=== PATIENT | male | born 1945 | race Caucasian/White ===

== ENCOUNTER 2016-09-09 18:31 | Emergency (ER) | payer MEDICARE, OTHER ==
--- NOTE | 2016-09-09 19:38 | ER Document Report ---
ED Hip Pain/Injury - General Mode of Arrival: Medic Information source: Patient TRAVEL OUTSIDE OF THE [place] IN LAST 30 DAYS: No <ELIE HARMAN - Last Filed: 09/10/16 06:49> <ARIN CRENSHAW - Last Filed: 09/10/16 15:19> - General Chief Complaint: Hip Pain Stated Complaint: LEFT HIP PAIN Notes: Patient is a 71-year-old male who presents to the ER via EMS today for left hip pain. Patient states that he was diagnosed a hip fracture one week ago after falling while intoxicated. Patient was seen by ortho here in the ER and told to follow-up with orthopedics and to go through physical therapy. He received physical therapy here in hospital but no more once he got home. He has been walking around with crutches at home. Patient states that he drinks alcohol daily after his left him August 05 of this year. He admits to anxiety and depression and lives alone. He states "I don't want to live anymore, I just want to ." He however denies any suicidal plan. He states "I don't have the guts for that." (ELIE HARMAN) - Related Data Allergies/Adverse Reactions: diphenhydramine HCl [From Benadryl] Allergy (Verified 09/09/16 18:54) Hyperactivity lisinopril [Lisinopril] Adverse Reaction (Severe, Verified 09/09/16 18:54) angioedema Home Medications: Current Home Medications Dabigatran Etexilate Mesylate [Pradaxa 150 mg Capsule] 150 mg PO BID 09/10/16 [ History] Digoxin [Lanoxin 0.25 mg Tablet] 0.25 mg PO QAM 09/10/16 [History] Diltiazem HCl [Diltiazem 24Hr Cd] 180 mg PO BID 09/10/16 [History] Valsartan/Hydrochlorothiazide [Valsartan-Hctz 80-12.5 mg Tab] 1 tab PO DAILY 02/19 [History] Past Medical History - General Information source: Patient - Social History Smoking Status: Unknown if Ever Smoked Family History: CAD, COPD - Past Medical History Cardiac Medical History: Reports: Hx Atrial Fibrillation Denies: Hx Congestive Heart Failure, Hx Coronary Artery Disease, Hx Heart Attack, Hx Hypercholesterolemia, Hx Hypertension, Hx Peripheral Vascular Disease , Hx Heart Murmur Pulmonary Medical History: Reports: Hx COPD Renal/ Medical History: Denies: Hx Benign Prostatic Hyperplasia, Hx End Stage Renal Disease, Hx Kidney Stones, Hx Peritoneal Dialysis Malignancy Medical History: Reports Hx Prostate Cancer GI Medical History: Reports: Hx Hiatal Hernia. Denies: Hx Crohn's Disease, Hx Gastroesophageal Reflux Disease, Hx Irritable Bowel, Hx Liver Failure, Hx Ulcer Psychiatric Medical History: Reports: Hx Anxiety, Hx Depression Infectious Medical History: Reports: Hx C-Diff Past Surgical History: Reports: Hx Abdominal Surgery, Hx Herniorrhaphy, Hx Orthopedic Surgery - elbow, Hx Urinary Tract Surgery. Denies: Hx Appendectomy, Hx Bowel Surgery, Hx Cholecystectomy, Hx Colostomy, Hx Coronary Artery Bypass Graft, Hx Gastric Bypass Surgery, Hx Pacemaker, Hx Tonsillectomy - Immunizations Hx Diphtheria, Pertussis, Tetanus Vaccination: No Hx Pneumococcal Vaccination: 09/05/10 <ELIE HARMAN - Last Filed: 09/10/16 06:49> Review of Systems - Review of Systems Constitutional: No symptoms reported EENT: No symptoms reported Cardiovascular: No symptoms reported Respiratory: No symptoms reported Gastrointestinal: No symptoms reported Genitourinary: No symptoms reported Male Genitourinary: No symptoms reported Musculoskeletal: See HPI Skin: No symptoms reported Hematologic/Lymphatic: No symptoms reported Neurological/Psychological: See HPI <ELIE HARMAN - Last Filed: 09/10/16 06:49> Physical Exam <ELIE HARMAN - Last Filed: 09/10/16 06:49> <ARIN CRENSHAW - Last Filed: 09/10/16 15:19> - Vital signs Vitals: Temp Pulse BP Pulse Ox 97.5 F 53 L 88/61 L 100 09/09/16 18:43 09/09/16 18:43 09/09/16 18:43 09/09/16 18:43 (ELIE HARMNA) (ARIN CRENSHAW) - Notes Notes: PHYSICAL EXAMINATION: GENERAL: intoxicated, smells of alcohol, in no acute distress. HEAD: Atraumatic, normocephalic. EYES: Pupils equal round and reactive to light, extraocular movements intact, sclera anicteric, conjunctiva are normal. NECK: Normal range of motion, supple without lymphadenopathy LUNGS: CTAB and equal. No wheezes rales or rhonchi. HEART: Regular rate and rhythm without murmurs ABDOMEN: Soft, no tenderness. No guarding, no rebound BACK: no vertebral tenderness, normal ROM GI/: no CVA tenderness EXTREMITIES: Decreased range of motion at the left hip secondary to pain, tender over lateral left hip, no pitting edema. No cyanosis. NEUROLOGICAL: Cranial nerves grossly intact. Normal sensory/motor exams. PSYCH: Depressed, crying, intoxicated SKIN: Warm, Dry, normal turgor, no rashes or lesions noted (ELIE HARMAN) Course - Laboratory Result Diagrams: 09/09/16 21:05 09/09/16 23:47 <ELIE HARMAN - Last Filed: 09/10/16 06:49> - Laboratory Result Diagrams: 09/09/16 21:05 09/09/16 23:47 <ARIN CRENSHAW - Last Filed: 09/10/16 15:19> - Re-evaluation Re-evalutation: 09/09/16 21:53 report from provider on 09-02/ initial hip fracture diagnosis: Dr. Mendoza was in the emergency department I asked him to step in and talk with the patient. He reports patient is able to be discharged home. Is not a surgical candidate. He would like physical therapy to assess patients ability to walk with a walker. PHYSICAL THERAPY CONSULTED FOR FOR assessment with walker. Patient was updated on plan of care and he agrees to all plan, verbalized understanding. 09/10/16 05:14 Pt medically cleared at this time, voluntary psych eval this morning. labwork revealed a sodium of 118, pt usually runs low at baseline as he is an alcoholic , usually his sodium is in the low 120's, after 1 liter of fluid it did improve back to his baseline and then he was given another liter of fluids, x ray was repeated and reveals the same avulsion fracture unchanged from previous x-ray. Alcohol was initially 225, now 90 and pt is stable with all normal vital signs. Patient has been and atrial fibrillation the entire time here which is normal for him. He is on medication for this. His pulses have ranged between 60 and 70 on average. 09/10/16 05:15 09/10/16 05:26 09/10/16 05:43 09/10/16 05:44 (ELIE HARMAN) 09/10/16 09:13 Initial evaluation patient's asleep. When awakened he denies having voiced any concerns during the night about 1 and hurt himself or kill himself. He also claims with hip pain but has no other complaints On exam patient is awake and alert but withdrawn and slow to answer questions. Skin is warm and dry Chest clear to auscultation bilaterally Heart slightly irregular no murmur Extremities warm with 2+ pulses Patient remains medically clear and awaiting mental health disposition 09/10/16 15:19 Patient has been evaluated by mental health provider with concerns that he may remain a threat to self. He is Clear and his usual outpatient regimen is being reordered (ARIN CRENSHAW) - Vital Signs Vital signs: Temp Pulse Resp BP Pulse Ox 98.2 F 60 16 125/82 95 09/10/16 07:01 09/09/16 23:05 09/10/16 11:01 09/10/16 11:01 09/10/16 11:01 (ELIE HARMAN) (ARIN CRENSHAW) - Laboratory Laboratory results interpreted by me: 09/09/16 09/09/16 09/09/16 21:05 21:05 21:05 RBC 3.82 L Hgb 12.7 L Hct 36.7 L Sodium 118.5 L* Chloride 85 L Glucose 66 L Calcium 8.0 L Total Protein 5.3 L Albumin 3.0 L Urine Blood SMALL H Ur Leukocyte Esterase SMALL H Digoxin Salicylates < 1.0 L Acetaminophen < 10 L 09/09/16 09/09/16 21:05 23:47 RBC Hgb Hct Sodium 121.0 L Chloride 89 L Glucose 70 L Calcium 7.4 L Total Protein 4.6 L Albumin 2.4 L Urine Blood Ur Leukocyte Esterase Digoxin 0.57 L Salicylates Acetaminophen (ARIN CRENSHAW) Discharge <ELIE HARMAN - Last Filed: 09/10/16 06:49> <ARIN CRENSHAW - Last Filed: 09/10/16 15:19> - Discharge Clinical Impression: Alcohol abuse, Intoxication Fracture of greater trochanter Qualifiers: Encounter type: subsequent encounter Fracture type: closed Fracture alignment: displaced Laterality: left Fracture healing: with routine healing Qualified Code (s): S72.112D - Displaced fracture of greater trochanter of left femur, subsequent encounter for closed fracture with routine healing Depressed Qualifiers: Depression Type: unspecified Qualified Code(s): F32.9 - Major depressive disorder, single episode, unspecified Condition: Stable Disposition: PSYCH HOSP/UNIT
[2016-09-09] MEDS ORDERED: OXYCODONE-ACETAMINOPHEN 5-325 MG TABLET PO ONE (20:49)
[2016-09-09] MEDS ORDERED: KETOROLAC TROMETHAMINE INJ/PF 30 MG/1 ML SDV IV ONE (20:50)
[2016-09-09 21:32] LABS: ABSOLUTE EOSINOPHILS # (AUTO) 0.1 10^3/uL (0.0-0.6); ABSOLUTE MONOCYTES (AUTO) 0.7 10^3/uL (0.1-1.4); ABSOLUTE NEUT (AUTO) 5.7 10^3/uL (1.7-8.2); BASOPHILS % (AUTO) 0.2 % (0-2); EOSINOPHILS % (AUTO) 1.2 % (0-6); HEMATOCRIT 36.7 % (37.9-51.0); HEMOGLOBIN 12.7 g/dL (13.5-17.0); HGB HCT DIFFERENCE 1.4; LYMPHOCYTES % (AUTO) 13.4 % (13-45); MEAN CORPUSCULAR HEMOGLOBIN 33.3 pg (27.0-33.4); MEAN CORPUSCULAR HGB CONC 34.7 g/dL (32.0-36.0); MEAN CORPUSCULAR VOLUME 96 fl (80-97); MONOCYTES % (AUTO) 9.7 % (3-13); RED BLOOD COUNT 3.82 10^6/uL (4.35-5.55); RED CELL DISTRIBUTION WIDTH 13.5 % (11.5-14.0); SEGMENTED NEUTROPHILS % (AUTO) 75.5 % (42-78); WHITE BLOOD COUNT 7.5 10^3/uL (4.0-10.5)
[2016-09-09 21:40] LABS: APPEARANCE,URINE CLEAR; BILIRUBIN,URINE NEGATIVE (NEGATIVE); GLUCOSE, URINE NEGATIVE (NEGATIVE); KETONES,URINE NEGATIVE (NEGATIVE); LEUKOCYTE ESTERASE,URINE SMALL (NEGATIVE); NITRITE,URINE NEGATIVE (NEGATIVE); PROTEIN,URINE NEGATIVE (NEGATIVE); URINE SPECIFIC GRAVITY 1.004; UROBILINOGEN,URINE NEGATIVE mg/dL (<2.0)
[2016-09-09 21:50] LABS: ALANINE AMINOTRANSFERASE 39 U/L (21-72); ALCOHOL 225 mg/dL (NONE DETECTED); ALKALINE PHOSPHATASE 91 U/L (38-126); ASPARTATE AMINO TRANSFERASE 30 U/L (17-59); BILIRUBIN,TOTAL 0.4 mg/dL (0.2-1.3); BLOOD UREA NITROGEN 9 mg/dL (7-20); CARBON DIOXIDE 25 mmol/L (22-30); CHLORIDE 85 mmol/L (98-107); CREATININE RESULT 0.77 mg/dL (0.52-1.25); GLUCOSE 66 mg/dL (75-110); POTASSIUM 4.2 mmol/L (3.6-5.0); TOTAL PROTEIN 5.3 g/dL (6.3-8.2)
[2016-09-09 21:51] LABS: ANION GAP 9 (5-19)
[2016-09-09 21:52] LABS: URINE BARBITURATES SCREEN UNCONFIRMED POSITIVE; URINE METHADONE SCREEN NEGATIVE; URINE PHENCYCLIDINE SCREEN NEGATIVE
[2016-09-09 21:55] LABS: SODIUM 118.5 mmol/L (137-145)
[2016-09-09] MEDS ORDERED: NORMAL SALINE 1000 ML 1,000 ML IV ONE (21:56)
[2016-09-10 00:11] LABS: ALANINE AMINOTRANSFERASE 41 U/L (21-72); ALBUMIN 2.4 g/dL (3.5-5.0); ALKALINE PHOSPHATASE 76 U/L (38-126); ANION GAP 8 (5-19); ASPARTATE AMINO TRANSFERASE 26 U/L (17-59); BILIRUBIN,TOTAL 0.4 mg/dL (0.2-1.3); BLOOD UREA NITROGEN 8 mg/dL (7-20); CALCIUM 7.4 mg/dL (8.4-10.2); CARBON DIOXIDE 24 mmol/L (22-30); CHLORIDE 89 mmol/L (98-107); CREATININE RESULT 0.73 mg/dL (0.52-1.25); GLUCOSE 70 mg/dL (75-110); POTASSIUM 3.6 mmol/L (3.6-5.0); TOTAL PROTEIN 4.6 g/dL (6.3-8.2)
[2016-09-10] MEDS ORDERED: NORMAL SALINE 1000 ML 1,000 ML IV ONE (00:28)
[2016-09-10] MEDS ORDERED: DIAZEPAM 5 MG TABLET PO ONE (01:09)
--- NOTE | 2016-09-10 05:12 | EKG REPORT ---
SEVERITY:- ABNORMAL ECG - ATRIAL FIBRILLATION : Confirmed by: Manuela Pollock 10-Sep-2016 05:10:56
[2016-09-10] MEDS ORDERED: OXYCODONE-ACETAMINOPHEN 5-325 MG TABLET PO ONE ×2 (05:14→09:34)
[2016-09-10] MEDS ORDERED: ONDANSETRON HCL INJ/PF 4 MG/2 ML SDV IV ONE ×2 (15:14→20:20)
[2016-09-10] MEDS ORDERED: HYDROCHLOROTHIAZIDE 12.5 MG CAPSULE PO SCH (15:30)
[2016-09-10] MEDS ORDERED: ONDANSETRON 4 MG TAB.RAPDIS ONE (15:35)
[2016-09-10] MEDS: DILTIAZEM HCL 180 MG CAPSULE.CR PO SCH (15:39)
[2016-09-10] MEDS: DIGOXIN 0.25 MG TABLET PO SCH (15:40)
[2016-09-10] MEDS ORDERED: VALSARTAN 80 MG TABLET PO SCH (16:00)
[2016-09-10] MEDS ORDERED: LORAZEPAM 0.5 MG TABLET PO ONE (19:01)
--- NOTE | 2016-09-10 19:34 | ER Document Report ---
Doctor's Note Notes: 09/10/16 19:33 Patient's son is here in the patient and son both ports they're planning take a trip together and the patient is optimistic tonight's may help him feel better. He requested something for sleep tonight and I ordered 1 dose of Ativan by mouth. I would like to watch him overnight if he still feels well tomorrow hopefully discharge at that point. Of returned about 9:00 in the morning at which point we'll like to have mental health reevaluates patient is well and wetting may have an acceptable and safe outpatient disposition
[2016-09-10] MEDS ORDERED: MORPHINE SULFATE 10 MG/ML INJ IV ONE (20:20)
[2016-09-10] MEDS: DABIGATRAN ETEXILATE 150 MG CAPSULE PO SCH (20:30)
[2016-09-11] MEDS ORDERED: MORPHINE SULFATE 10 MG/ML INJ ONE (05:15)
[2016-09-11 09:21] VITALS: BP 122/80
[2016-09-11] MEDS: DIGOXIN 0.25 MG TABLET PO SCH (09:36)
[2016-09-11] MEDS: DABIGATRAN ETEXILATE 150 MG CAPSULE PO SCH (09:36)
[2016-09-11] MEDS: DILTIAZEM HCL 180 MG CAPSULE.CR PO SCH (09:37)
[2016-09-11] MEDS ORDERED: ACETAMINOPHEN WITH CODEINE #3 TABLET PO ONE (11:54)
--- NOTE | 2016-09-11 12:01 | ER Document Report ---
ED General - General Chief Complaint: Hip Pain Stated Complaint: LEFT HIP PAIN Mode of Arrival: Medic Notes: Patient is awake and alert. To this examiner he has no specific complaints at this time. Hip pain is under control. He does not like how Percocet makes him feel and wants to try Tylenol 3 for his hip pain. He has an orthopedic surgeon and the hip is nonoperative. He has history of physical therapy this week. PE: Cooperative, chest clear to auscultation bilaterally, breath sounds are equal moves extremities well. Speech is clear. He answers questions appropriately. No SI/HI or psychosis. Cleared by mental health. Son in emergency room to take patient home. TRAVEL OUTSIDE OF THE [place] IN LAST 30 DAYS: No - Related Data Allergies/Adverse Reactions: diphenhydramine HCl [From Benadryl] Allergy (Verified 09/09/16 18:54) Hyperactivity lisinopril [Lisinopril] Adverse Reaction (Severe, Verified 09/09/16 18:54) angioedema Home Medications: Current Home Medications Dabigatran Etexilate Mesylate [Pradaxa 150 mg Capsule] 150 mg PO BID 09/10/16 [ History] Digoxin [Lanoxin 0.25 mg Tablet] 0.25 mg PO QAM 09/10/16 [History] Diltiazem HCl [Diltiazem 24Hr Cd] 180 mg PO BID 09/10/16 [History] Valsartan/Hydrochlorothiazide [Valsartan-Hctz 80-12.5 mg Tab] 1 tab PO DAILY 02/19 [History] Past Medical History - General Information source: Patient - Social History Smoking Status: Unknown if Ever Smoked Family History: CAD, COPD - Past Medical History Cardiac Medical History: Reports: Hx Atrial Fibrillation Denies: Hx Congestive Heart Failure, Hx Coronary Artery Disease, Hx Heart Attack, Hx Hypercholesterolemia, Hx Hypertension, Hx Peripheral Vascular Disease , Hx Heart Murmur Pulmonary Medical History: Reports: Hx COPD Renal/ Medical History: Denies: Hx Benign Prostatic Hyperplasia, Hx End Stage Renal Disease, Hx Kidney Stones, Hx Peritoneal Dialysis Malignancy Medical History: Reports Hx Prostate Cancer GI Medical History: Reports: Hx Hiatal Hernia. Denies: Hx Crohn's Disease, Hx Gastroesophageal Reflux Disease, Hx Irritable Bowel, Hx Liver Failure, Hx Ulcer Psychiatric Medical History: Reports: Hx Anxiety, Hx Depression Infectious Medical History: Reports: Hx C-Diff Past Surgical History: Reports: Hx Abdominal Surgery, Hx Herniorrhaphy, Hx Orthopedic Surgery - elbow, Hx Urinary Tract Surgery. Denies: Hx Appendectomy, Hx Bowel Surgery, Hx Cholecystectomy, Hx Colostomy, Hx Coronary Artery Bypass Graft, Hx Gastric Bypass Surgery, Hx Pacemaker, Hx Tonsillectomy - Immunizations Hx Diphtheria, Pertussis, Tetanus Vaccination: No Hx Pneumococcal Vaccination: 09/05/10 Physical Exam - Vital signs Vitals: Temp Pulse BP Pulse Ox 97.5 F 53 L 88/61 L 100 09/09/16 18:43 09/09/16 18:43 09/09/16 18:43 09/09/16 18:43 Course - Vital Signs Vital signs: Temp Pulse Resp BP Pulse Ox 98 F 91 16 122/80 98 09/11/16 09:00 09/11/16 09:00 09/11/16 09:00 09/11/16 09:00 09/11/16 09:00 - Laboratory Result Diagrams: 09/09/16 21:05 09/09/16 23:47 Laboratory results interpreted by me: 09/09/16 09/09/16 09/09/16 21:05 21:05 21:05 RBC 3.82 L Hgb 12.7 L Hct 36.7 L Sodium 118.5 L* Chloride 85 L Glucose 66 L Calcium 8.0 L Total Protein 5.3 L Albumin 3.0 L Urine Blood SMALL H Ur Leukocyte Esterase SMALL H Digoxin Salicylates < 1.0 L Acetaminophen < 10 L 09/09/16 09/09/16 21:05 23:47 RBC Hgb Hct Sodium 121.0 L Chloride 89 L Glucose 70 L Calcium 7.4 L Total Protein 4.6 L Albumin 2.4 L Urine Blood Ur Leukocyte Esterase Digoxin 0.57 L Salicylates Acetaminophen Discharge - Discharge Clinical Impression: Alcohol abuse, Intoxication Fracture of greater trochanter Qualifiers: Encounter type: subsequent encounter Fracture type: closed Fracture alignment: nondisplaced Laterality: unspecified laterality Fracture healing: with routine healing Qualified Code(s): S72.116D - Nondisplaced fracture of greater trochanter of unspecified femur, subsequent encounter for closed fracture with routine healing Depressed Qualifiers: Depression Type: unspecified Qualified Code(s): F32.9 - Major depressive disorder, single episode, unspecified Condition: Stable Disposition: PSYCH HOSP/UNIT Additional Instructions: When taking the Tylenol #3, do not take any other pain medication other than Motrin. You must follow up for physical therapy and further evaluation by the orthopedic surgeon. DEPRESSION: Your evaluation reveals that you have mental depression. While symptoms may be vague, they often include disturbance of sleep, fatigue, loss of appetite , and general loss of interest in life. While depression may be a side effect of drugs, or a reaction to a major change in your life, many cases have no known cause. If depression is acute, and related to a major loss in your life, you can expect it to clear completely with time. If you have been depressed a long time , are prone to repeated bouts of depression or low mood, or have been thinking of suicide, get help. Depression can be treated with anti-depressant medication and counselling. Long-term depression will often take a few weeks to clear, even with appropriate medication. Follow-up care is important. SUICIDAL IDEATION: Suicidal ideation is a common medical term for thoughts about suicide, which may be as detailed as a formulated plan, without the suicidal act itself. Although most people who undergo suicidal ideation do not commit suicide, some go on to make suicide attempts. The range of suicidal ideation varies greatly from fleeting to detailed planning, role playing, and unsuccessful attempts. While thoughts about suicide are common, most people do not carry out serious actions to commit suicide. Based upon your evaluation and discussion with you, we do not believe you are currently at risk to act upon your thoughts of suicide. You have agreed to return to the Emergency Department, at any time , if you feel inclined to act upon your suicidal thoughts. FOLLOW-UP CARE: If you have been referred to a physician for follow-up care, call the physician s office for an appointment as you were instructed or within the next two days. If you experience worsening or a significant change in your symptoms, notify the physician immediately or return to the Emergency Department at any time for re-evaluation.
--- NOTE | 2016-09-11 12:22 | PSYCHOLOGICAL NOTE ---
Psych Note - Psych Note Psych Note: Patient presented to the ER via EMS today for left hip pain. Patient states that he was diagnosed a hip fracture one week ago after falling while intoxicated. Patient was seen by ortho here in the ER and told to follow-up with orthopedics and to go through physical therapy. He received physical therapy here in hospital but no more once he got home. He has been walking around with crutches at home. Patient states that he drinks alcohol daily after his left him August 05 of this year. He admits to anxiety and depression and lives alone. He states "I don't want to live anymore, I just want to ." He however denies any suicidal plan. He states "I don't have the guts for that." Patient requests Ativan for his anxiety. Patient is very guarded stating "everything is fine." When asked about any history of mental health issues patient stated "just forget it, it's too hard, I just wanted a piece of Ativan. " Patient really fuses to answer any questions only stating that he has anxiety and just needed something to help him with it. Patient is alert and orientated to person, place, time, and circumstance. Mood is irritable with blunted affect. Patient denies suicidal and homicidal ideation. Patient denies auditory visual hallucinations; no delusions are noted. Thought process is organized however it is noted that the patient requests information repeated to him. It is unknown if this is for assistance in remembering or some other secondary gain. Conversational speech is halting, guarded. Patient made no eye contact. Intellectual abilities appear to be within normal range. Attention, and concentration are poor. Insight, judgment , and impulse control are poor. 311 (F32.9) Unspecified Depressive Disorder Patient's presenting symptoms are similar to that of a depressive disorder and cause clinically significant distress in all domains of his life At this time, in this setting (ED) there is not enough information to make a more specific diagnosis (eg due to a medical illness vs major depressive disorder) 291.9 (F10.99) Unspecified Alcohol-Related Disorder Patient reports daily ETOH and states it is causes clinically significant probs in all domains of his life At this time, in this setting (ED) there is not enough information to make a more specific diagnosis. Patient is recommended for IVC and seek 24 hour inpatient psychiatric care. Patient is considered a danger to himself. Currently the patient denies suicidal ideation however he is at high risk because of his diagnoses, situation , age, and new injury. Patient is to guarded and evasive to effectively evaluate reevaluation will be needed.
--- NOTE | 2016-09-11 12:32 | PSYCHOLOGICAL NOTE ---
Psych Note - Psych Note Psych Note: Reevaluation: Patient presented to the ER via EMS today for left hip pain. Patient states that he was diagnosed a hip fracture one week ago after falling while intoxicated. Patient was seen by ortho here in the ER and told to follow-up with orthopedics and to go through physical therapy. He received physical therapy here in hospital but no more once he got home. He has been walking around with crutches at home. Patient states that he drinks alcohol daily after his left him August 05 of this year. He admits to anxiety and depression and lives alone. He states "I don't want to live anymore, I just want to ." He however denies any suicidal plan. He states "I don't have the guts for that." Patient states that he is thankful we kept him overnight. Stating that he thinks it's actually done good for his hip cousin starting to feel better. Patient disclosed his left him and that he was in a "bad way." He states that she will be coming back in a few months and currently he has plans to go on a vacation with his son. When asked if he would have coping skills if the plan changed the patient disclosed that he is currently taking things 1 day at a time so it does not overwhelm him. He continued to disclose that AA services are very close to his home and while in the past he has sporadically gone he states he really needs to focus on doing that. Clinician spoke to patient's son, Matt [phone], he disclosed that his mom has left however he believes she will be coming back. In the meantime he is willing to be his father's safety resource. They currently have plans to go on a vacation and his father is really looking forward to it. Patient is alert and orientated to person, place, time, and circumstance. Mood is euthymic and affect with congruent affect. Patient denies suicidal and homicidal ideation. Patient denies auditory visual hallucinations; no delusions are noted. Thought process is logical, organized, and linear. Conversational speech is within normal rate, tone, and prosody. Eye contact was well maintained. Intellectual abilities appear to be within normal range. Attention, and concentration are poor. Insight, judgment, and impulse control are poor. 311 (F32.9) Unspecified Depressive Disorder Patient's presenting symptoms are similar to that of a depressive disorder and cause clinically significant distress in all domains of his life At this time, in this setting (ED) there is not enough information to make a more specific diagnosis (eg due to a medical illness vs major depressive disorder) 291.9 (F10.99) Unspecified Alcohol-Related Disorder Patient reports daily ETOH and states it is causes clinically significant probs in all domains of his life At this time, in this setting (ED) there is not enough information to make a more specific diagnosis. Patient is recommended for rescind of IVC and is considered psychiatrically cleared for discharge. Patient is able to discuss current situation and formulate plans. Patient's son Matt is safety resource. While the patient states he does not want outpatient services he will look into to attending AA classes. Patient is psychiatrically cleared for discharge Dr. Martinez was consulted on this patient; attending physician is in agreement with recommendations and disposition.
== END 2016-09-11 12:24 ==
LOC: ER 18:31
DX: S72.11 Fracture of greater trochanter of femur (principal); F10.120 Alcohol abuse with intoxication, uncomplicated; F32.9 Major depressive disorder, single episode, unspecified; X58.XXXD Exposure to other specified factors, subsequent encounter
CPT/HCPCS: 93005; 96376; 99285; 96361; 96374; 96375; 36415; 80307 ×4; 80162; 85025; 80053; 81001; 71010; 73502; 93010; A9270 ×11; J1885; J2270 ×2; J2405; J7030 ×2; J3490; S0119

== ENCOUNTER 2016-09-16 17:03 | Emergency (ER) | payer MEDICARE, OTHER ==
--- NOTE | 2016-09-16 17:46 | ER Document Report ---
ED Medical Screen (RME) - General Stated Complaint: FALL/HIP PAIN Notes: patient is a 71 year old male who lives by himself patient has been in/out of the ED for EtOH and recent left greater trochanter fracture son today states that today he was called by his dad after he fell, he had consumed about 12 beers. States he hit his head (on pradaxa) and has pain in his left hip. pt cannot articulate what happened that led to his fall. EMS reports that he admitted to SI but denies it currently. does not admit to current attempt or plan. son is concerned for his safety at home. TRAVEL OUTSIDE OF THE [place] IN LAST 30 DAYS: No - Related Data Allergies/Adverse Reactions: diphenhydramine HCl [From Benadryl] Allergy (Verified 09/16/16 17:37) Hyperactivity lisinopril [Lisinopril] Adverse Reaction (Severe, Verified 09/16/16 17:37) angioedema Past Medical History - Social History Family history: Reviewed & Not Pertinent - Past Medical History Cardiac Medical History: Reports: Hx Atrial Fibrillation Denies: Hx Congestive Heart Failure, Hx Coronary Artery Disease, Hx Heart Attack, Hx Hypercholesterolemia, Hx Hypertension, Hx Peripheral Vascular Disease , Hx Heart Murmur Pulmonary Medical History: Reports: Hx COPD Renal/ Medical History: Denies: Hx Benign Prostatic Hyperplasia, Hx End Stage Renal Disease, Hx Kidney Stones, Hx Peritoneal Dialysis Malignancy Medical History: Reports Hx Prostate Cancer GI Medical History: Reports: Hx Hiatal Hernia. Denies: Hx Crohn's Disease, Hx Gastroesophageal Reflux Disease, Hx Irritable Bowel, Hx Liver Failure, Hx Ulcer Psychiatric Medical History: Reports: Hx Anxiety, Hx Depression Infectious Medical History: Reports: Hx C-Diff Past Surgical History: Reports: Hx Abdominal Surgery, Hx Herniorrhaphy, Hx Orthopedic Surgery - elbow, Hx Urinary Tract Surgery. Denies: Hx Appendectomy, Hx Bowel Surgery, Hx Cholecystectomy, Hx Colostomy, Hx Coronary Artery Bypass Graft, Hx Gastric Bypass Surgery, Hx Pacemaker, Hx Tonsillectomy - Immunizations Hx Diphtheria, Pertussis, Tetanus Vaccination: No
--- NOTE | 2016-09-16 18:09 | ER Document Report ---
ED Psych Disorder / Suicide - General TRAVEL OUTSIDE OF THE [place] IN LAST 30 DAYS: No <PREETI ALVES - Last Filed: 09/16/16 19:14> <ADELAIDATEAANKUR - Last Filed: 09/17/16 10:55> - General Chief Complaint: Suicidal Ideation Stated Complaint: FALL/HIP PAIN Notes: The patient is a 71-year-old male, past medical history panic alcoholism, left greater trochanteric fracture in the past, presents with left hip pain after he was drinking 12 beers and fell on the left hip. His son said that he was expressing suicidal thoughts, but patient denies any suicidal thoughts at this time. "I don't have the balls to kill myself." He is on Pradaxa and hit his head and left hip earlier today. He wants to go to detox and said his son is helping him. The son is in the room and said that he would like to be referred for outpatient detox. He denies headache, nausea, vomiting, neck pain, focal weakness, numbness, ataxia, difficulty walking, chest pain, shortness of breath or LOC. (PREETI ALVES) - Related Data Allergies/Adverse Reactions: diphenhydramine HCl [From Benadryl] Allergy (Verified 09/16/16 17:37) Hyperactivity lisinopril [Lisinopril] Adverse Reaction (Severe, Verified 09/16/16 17:37) angioedema Past Medical History - General Information source: Patient, Relative - Social History Smoking Status: Current Every Day Smoker Chew tobacco use (# tins/day): No Frequency of alcohol use: None Drug Abuse: None Family History: CAD, COPD Patient has suicidal ideation: No Patient has homicidal ideation: No - Past Medical History Cardiac Medical History: Reports: Hx Atrial Fibrillation Denies: Hx Congestive Heart Failure, Hx Coronary Artery Disease, Hx Heart Attack, Hx Hypercholesterolemia, Hx Hypertension, Hx Peripheral Vascular Disease , Hx Heart Murmur Pulmonary Medical History: Reports: Hx COPD Renal/ Medical History: Denies: Hx Benign Prostatic Hyperplasia, Hx End Stage Renal Disease, Hx Kidney Stones, Hx Peritoneal Dialysis Malignancy Medical History: Reports Hx Prostate Cancer GI Medical History: Reports: Hx Hiatal Hernia. Denies: Hx Crohn's Disease, Hx Gastroesophageal Reflux Disease, Hx Irritable Bowel, Hx Liver Failure, Hx Ulcer Psychiatric Medical History: Reports: Hx Anxiety, Hx Depression Infectious Medical History: Reports: Hx C-Diff Past Surgical History: Reports: Hx Abdominal Surgery, Hx Herniorrhaphy, Hx Orthopedic Surgery - elbow, Hx Urinary Tract Surgery. Denies: Hx Appendectomy, Hx Bowel Surgery, Hx Cholecystectomy, Hx Colostomy, Hx Coronary Artery Bypass Graft, Hx Gastric Bypass Surgery, Hx Pacemaker, Hx Tonsillectomy - Immunizations Hx Diphtheria, Pertussis, Tetanus Vaccination: No Hx Pneumococcal Vaccination: 09/05/10 <PREETI ALVES - Last Filed: 09/16/16 19:14> Review of Systems <PREETI ALVES - Last Filed: 09/16/16 19:14> <ANKUR MCLAUGHLIN - Last Filed: 09/17/16 10:55> - Review of Systems Notes: REVIEW OF SYSTEMS: CONSTITUTIONAL: -fevers, -chills EENT: -eye pain, -difficulty swallowing, -nasal congestion CARDIOVASCULAR: -chest pain, -syncope. RESPIRATORY: -cough, -SOB GASTROINTESTINAL: -abdominal pain, - nausea, -vomiting, -diarrhea GENITOURINARY: -dysuria, -hematuria MUSCULOSKELETAL: -back pain, -neck pain SKIN: -rash or skin lesions. HEMATOLOGIC: -easy bruising or bleeding. LYMPHATIC: -swollen, enlarged glands. NEUROLOGICAL: -altered mental status or loss of consciousness, -headache, - neurologic symptoms PSYCHIATRIC: -anxiety, +depression, +chronic alcohol use ALL OTHER SYSTEMS REVIEWED AND NEGATIVE. (PREETI ALVES) Physical Exam <PREETI ALVES - Last Filed: 09/16/16 19:14> <ANKUR MCLAUGHLIN - Last Filed: 09/17/16 10:55> - Vital signs Vitals: Temp Pulse Resp BP Pulse Ox 98.2 F 67 20 93/57 L 97 09/16/16 17:37 09/16/16 17:37 09/16/16 17:37 09/16/16 17:37 09/16/16 17:37 (PREETI ALVES) (ANKUR MCLAUGHLIN) - Notes Notes: PHYSICAL EXAMINATION: GENERAL: Clinically intoxicated. No acute distress. HEAD: Contusion over right forehead, normocephalic. EYES: Pupils equal round and reactive to light, extraocular movements intact, sclera anicteric, conjunctiva are normal. ENT: nares patent, oropharynx clear without exudates. Moist mucous membranes. NECK: Normal range of motion, supple without lymphadenopathy LUNGS: Breath sounds clear to auscultation bilaterally and equal. No wheezes rales or rhonchi. HEART: Regular rate and rhythm without murmurs ABDOMEN: Soft, nontender, normoactive bowel sounds. No guarding, no rebound. No masses appreciated. EXTREMITIES: Tenderness over left lateral hip. Normal range of motion, no pitting or edema. No cyanosis. NEUROLOGICAL: Cranial nerves grossly intact. Normal speech, normal gait. Normal sensory, motor, and reflex exams. PSYCH: Normal mood, normal affect. SKIN: Warm, Dry, normal turgor, no rashes or lesions noted. (PREETI ALVES) Course - Laboratory Result Diagrams: 09/16/16 18:35 09/16/16 18:35 - Diagnostic Test Radiology reviewed: Image reviewed, Reports reviewed - EKG Interpretation by Fl EKG shows normal: [place], Intervals, QRS Complexes, ST-T Waves Rate: Bradycardia Rhythm: A.Fib <PREETI ALVES - Last Filed: 09/16/16 19:14> - Laboratory Result Diagrams: 09/16/16 18:35 09/16/16 18:35 <ANKUR MCLAUGHLIN - Last Filed: 09/17/16 10:55> - Re-evaluation Re-evalutation: Patient denying any suicidal ideation at this time, but son said that he was expressing thoughts of hurting himself over the past few days. CT head and hip x-ray negative for any acute findings. Will involve psych care management for help with detox and further evaluation of his suicidality. (PREETI ALVES) - Vital Signs Vital signs: Temp Pulse Resp BP Pulse Ox 98.1 F 92 18 144/92 H 97 09/17/16 08:11 09/17/16 08:11 09/17/16 08:11 09/17/16 08:11 09/17/16 08:11 (PREETI ALVES) (ANKUR MCLAUGHLIN) - Laboratory Laboratory results interpreted by ne: 09/16/16 09/16/16 09/16/16 18:35 18:35 21:45 RBC 3.66 L Hgb 11.8 L Hct 36.1 L MCV 99 H RDW 14.3 H Sodium 129.4 L Chloride 91 L Total Protein 5.4 L Albumin 3.2 L Ur Leukocyte Esterase TRACE H Salicylates < 1.0 L Acetaminophen < 10 L (ANKUR MCLAUGHLIN) - Diagnostic Test Radiology results interpreted by me: CT Head: NAD. Hip x-ray: (PREETI ALVES) Discharge <PREETI ALVES - Last Filed: 09/16/16 19:14> <ANKUR MCLAUGHLIN - Last Filed: 09/17/16 10:55> - Discharge Clinical Impression: Alcohol abuse, Suicidal ideation, mood disorder NOS, alcohol dependence Condition: Good Disposition: HOME, SELF-CARE Additional Instructions: Recommendations: Follow-up at [facility] (resource list given). Continue current medicines. Follow-up with your primary care doctor is well: Call for an appointment in the next 3-5 days. Return to the emergency room for any thoughts of wanting to hurt yourself or others or any thoughts of losing control.
[2016-09-16] MEDS ORDERED: NORMAL SALINE 1000 ML 1,000 ML IV ONE (18:10)
[2016-09-16 18:53] LABS: ABSOLUTE EOSINOPHILS # (AUTO) 0.1 10^3/uL (0.0-0.6); ABSOLUTE LYMPHOCYTES (AUTO) 1.1 10^3/uL (0.5-4.7); ABSOLUTE MONOCYTES (AUTO) 0.7 10^3/uL (0.1-1.4); ABSOLUTE NEUT (AUTO) 4.7 10^3/uL (1.7-8.2); BASOPHILS % (AUTO) 0.6 % (0-2); EOSINOPHILS % (AUTO) 1.4 % (0-6); HEMATOCRIT 36.1 % (37.9-51.0); HEMOGLOBIN 11.8 g/dL (13.5-17.0); HGB HCT DIFFERENCE -0.7; LYMPHOCYTES % (AUTO) 15.9 % (13-45); MEAN CORPUSCULAR HEMOGLOBIN 32.2 pg (27.0-33.4); MEAN CORPUSCULAR HGB CONC 32.7 g/dL (32.0-36.0); MEAN CORPUSCULAR VOLUME 99 fl (80-97); MONOCYTES % (AUTO) 10.6 % (3-13); RED BLOOD COUNT 3.66 10^6/uL (4.35-5.55); RED CELL DISTRIBUTION WIDTH 14.3 % (11.5-14.0); SEGMENTED NEUTROPHILS % (AUTO) 71.5 % (42-78); WHITE BLOOD COUNT 6.6 10^3/uL (4.0-10.5)
[2016-09-16 19:28] LABS: ALANINE AMINOTRANSFERASE 21 U/L (21-72); ALBUMIN 3.2 g/dL (3.5-5.0); ALCOHOL 252 mg/dL (NONE DETECTED); ALKALINE PHOSPHATASE 76 U/L (38-126); ANION GAP 9 (5-19); ASPARTATE AMINO TRANSFERASE 33 U/L (17-59); BILIRUBIN,TOTAL 0.3 mg/dL (0.2-1.3); BLOOD UREA NITROGEN 10 mg/dL (7-20); CALCIUM 8.5 mg/dL (8.4-10.2); CARBON DIOXIDE 29 mmol/L (22-30); CHLORIDE 91 mmol/L (98-107); CREATININE RESULT 0.73 mg/dL (0.52-1.25); GLUCOSE 82 mg/dL (75-110); POTASSIUM 4.3 mmol/L (3.6-5.0); SODIUM 129.4 mmol/L (137-145); TOTAL PROTEIN 5.4 g/dL (6.3-8.2)
[2016-09-16] MEDS ORDERED: ACETAMINOPHEN 325 MG TABLET PO ONE (21:25)
[2016-09-16 22:36] LABS: APPEARANCE,URINE CLEAR; BILIRUBIN,URINE NEGATIVE (NEGATIVE); GLUCOSE, URINE NEGATIVE (NEGATIVE); KETONES,URINE NEGATIVE (NEGATIVE); LEUKOCYTE ESTERASE,URINE TRACE (NEGATIVE); NITRITE,URINE NEGATIVE (NEGATIVE); PROTEIN,URINE NEGATIVE (NEGATIVE); URINE SPECIFIC GRAVITY 1.003; UROBILINOGEN,URINE NEGATIVE mg/dL (<2.0)
[2016-09-16 22:49] LABS: URINE BARBITURATES SCREEN NEGATIVE; URINE METHADONE SCREEN NEGATIVE; URINE PHENCYCLIDINE SCREEN NEGATIVE
[2016-09-17] MEDS ORDERED: HALOPERIDOL 5 MG TABLET PO ONE (01:05)
[2016-09-17] MEDS ORDERED: IBUPROFEN 400 MG TABLET PO ONE (05:38)
[2016-09-17 11:03] VITALS: BP 143/91
--- NOTE | 2016-09-17 11:09 | PSYCHOLOGICAL NOTE ---
Psych Note - Psych Note Psych Note: Patient presented to [facility] ED because fell earlier today after drinking. His son said that he was expressing suicidal thoughts, but patient denies any suicidal thoughts at this time. "I don't have the balls to kill myself." Patient states he wants to go to detox and said his son is helping him. Patient states he is not suicidal. And that he won't drink again. When reminded that patient states this upon each visit patient becomes agitated stating that he won't because there is no alcohol at the house. Patient states he is open to receiving information for outpatient services. 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 He discloses there was no alcohol in the home however his father went and got some. He continued to disclose that he is looking into inpatient resource [facility]. Patient is alert and orientated to person, place, time, and circumstance. Mood is irritable with flat affect. Patient denies suicidal and homicidal ideation. Patient denies auditory visual hallucinations; no delusions are noted. Thought process is organized however it is noted that the patient requests information repeated to him. It is unknown if this is for assistance in remembering or some other secondary gain. Conversational speech is halting, guarded. Patient made no eye contact. Intellectual abilities appear to be within normal range. Attention, and concentration are poor. Insight, judgment , and impulse control are poor. 311 (F32.9) Unspecified Depressive Disorder Patient's presenting symptoms are similar to that of a depressive disorder and cause clinically significant distress in all domains of his life At this time, in this setting (ED) there is not enough information to make a more specific diagnosis (eg due to a medical illness vs major depressive disorder) 291.9 (F10.99) Unspecified Alcohol-Related Disorder Patient reports daily ETOH and states it is causes clinically significant probs in all domains of his life At this time, in this setting (ED) there is not enough information to make a more specific diagnosis. Impression/ Plan: Patient is well known in this department and to this clinician. Patient was seen last week and discharged on 09/11/16 for falling after becoming intoxicated. At the time of last discharge; the patient's son Matt was identified as his safety resource. While the patient stated he did not want outpatient services he was going to look into attending AA meetings. Currently patient is stating he is willing to receive outpatient resource information. Patient's son Matt is attempting to locate inpatient treatment for substance abuse for the patient. Patient denies suicidal homicidal ideation. Patient is psychiatrically cleared for discharge Dr. Martinez was consulted on this patient; attending physician is in agreement with recommendations and disposition.
--- NOTE | 2016-09-17 14:57 | EKG REPORT ---
SEVERITY:- ABNORMAL ECG - ATRIAL FIBRILLATION : Confirmed by: Manuela Pollock 17-Sep-2016 14:57:01
== END 2016-09-17 11:04 | disposition home or self-care (01) ==
LOC: ER 17:03
DX: F10.20 Alcohol dependence, uncomplicated (principal); F39 Unspecified mood [affective] disorder; R45.851 Suicidal ideations; M25.552 Pain in left hip; Z79.899 Other long term (current) drug therapy; W19.XXXA Unspecified fall, initial encounter; F17.210 Nicotine dependence, cigarettes, uncomplicated
CPT/HCPCS: 93005; 99285; 96360; 36415; 80307 ×4; 80162; 85025; 80053; 81001; 73502; 70450; 93010; A9270 ×3; J7030; J3490

== ENCOUNTER 2016-09-21 20:13 | Inpatient (IN) | payer MEDICARE, OTHER ==
--- NOTE | 2016-09-21 20:27 | ER Document Report ---
ED Medical Screen (RME) - General Stated Complaint: BODY ACHES Mode of Arrival: Medic Notes: Patient stopped drinking alcohol 24 hours ago, started having withdrawals today started to drink again tonight. Patient drank 4, 24 oz beers. Patient complains of generalized body aches. Patient is requesting detox. hx: afib, HTN I have greeted and performed a rapid initial assessment of this patient. A comprehensive ED assessment and evaluation of the patient, analysis of test results and completion of the medical decision making process will be conducted by additional ED providers. TRAVEL OUTSIDE OF THE [place] IN LAST 30 DAYS: No - Related Data Allergies/Adverse Reactions: diphenhydramine HCl [From Benadryl] Allergy (Verified 09/16/16 17:37) Hyperactivity lisinopril [Lisinopril] Adverse Reaction (Severe, Verified 09/16/16 17:37) angioedema Past Medical History - Social History Family history: Reviewed & Not Pertinent - Past Medical History Cardiac Medical History: Reports: Hx Atrial Fibrillation Denies: Hx Congestive Heart Failure, Hx Coronary Artery Disease, Hx Heart Attack, Hx Hypercholesterolemia, Hx Hypertension, Hx Peripheral Vascular Disease , Hx Heart Murmur Pulmonary Medical History: Reports: Hx COPD Renal/ Medical History: Denies: Hx Benign Prostatic Hyperplasia, Hx End Stage Renal Disease, Hx Kidney Stones, Hx Peritoneal Dialysis Malignancy Medical History: Reports Hx Prostate Cancer GI Medical History: Reports: Hx Hiatal Hernia. Denies: Hx Crohn's Disease, Hx Gastroesophageal Reflux Disease, Hx Irritable Bowel, Hx Liver Failure, Hx Ulcer Psychiatric Medical History: Reports: Hx Anxiety, Hx Depression Infectious Medical History: Reports: Hx C-Diff Past Surgical History: Reports: Hx Abdominal Surgery, Hx Herniorrhaphy, Hx Orthopedic Surgery - elbow, Hx Urinary Tract Surgery. Denies: Hx Appendectomy, Hx Bowel Surgery, Hx Cholecystectomy, Hx Colostomy, Hx Coronary Artery Bypass Graft, Hx Gastric Bypass Surgery, Hx Pacemaker, Hx Tonsillectomy - Immunizations Hx Diphtheria, Pertussis, Tetanus Vaccination: No Physical Exam - General General appearance: Appears well Notes: No obvious tremors or shakes this time. - Neurological Cognition: Normal [place] Coma Scale Eye Opening: Spontaneous Lizy Coma Scale Verbal: Oriented Lizy Coma Scale Motor: Obeys Commands Lizy Coma Scale Total: 15
[2016-09-21] MEDS ORDERED: ACETAMINOPHEN 325 MG TABLET PO ONE (21:05)
[2016-09-21 22:54] LABS: ABSOLUTE LYMPHOCYTES (AUTO) 0.7 10^3/uL (0.5-4.7); ABSOLUTE MONOCYTES (AUTO) 0.7 10^3/uL (0.1-1.4); ABSOLUTE NEUT (AUTO) 8.3 10^3/uL (1.7-8.2); BASOPHILS % (AUTO) 0.3 % (0-2); EOSINOPHILS % (AUTO) 0.5 % (0-6); HEMATOCRIT 35.7 % (37.9-51.0); HEMOGLOBIN 12.4 g/dL (13.5-17.0); HGB HCT DIFFERENCE 1.5; LYMPHOCYTES % (AUTO) 6.8 % (13-45); MEAN CORPUSCULAR HEMOGLOBIN 33.7 pg (27.0-33.4); MEAN CORPUSCULAR HGB CONC 34.8 g/dL (32.0-36.0); MEAN CORPUSCULAR VOLUME 97 fl (80-97); MONOCYTES % (AUTO) 7.2 % (3-13); RED BLOOD COUNT 3.67 10^6/uL (4.35-5.55); RED CELL DISTRIBUTION WIDTH 14.1 % (11.5-14.0); SEGMENTED NEUTROPHILS % (AUTO) 85.2 % (42-78); WHITE BLOOD COUNT 9.7 10^3/uL (4.0-10.5)
[2016-09-21 23:06] LABS: ALANINE AMINOTRANSFERASE 29 U/L (21-72); ALBUMIN 4.2 g/dL (3.5-5.0); ALCOHOL 87 mg/dL (NONE DETECTED); ALKALINE PHOSPHATASE 97 U/L (38-126); ANION GAP 14 (5-19); ASPARTATE AMINO TRANSFERASE 32 U/L (17-59); BILIRUBIN,TOTAL 0.9 mg/dL (0.2-1.3); BLOOD UREA NITROGEN 5 mg/dL (7-20); CALCIUM 8.7 mg/dL (8.4-10.2); CARBON DIOXIDE 22 mmol/L (22-30); CHLORIDE 71 mmol/L (98-107); CREATININE RESULT 0.53 mg/dL (0.52-1.25); GLUCOSE 93 mg/dL (75-110); POTASSIUM 4.1 mmol/L (3.6-5.0); TOTAL PROTEIN 6.5 g/dL (6.3-8.2)
[2016-09-21] MEDS ORDERED: THIAMINE HCL 100 MG in NORMAL SALINE 50 ML IV ONE (23:10)
[2016-09-21 23:11] LABS: SODIUM 107.3 mmol/L (137-145)
[2016-09-21] MEDS ORDERED: FOLIC ACID INJ 5 MG/1 ML 10 ML VIAL IV ONE (23:11)
[2016-09-21] MEDS ORDERED: MULTIVITAMIN TABLET PO ONE (23:11)
[2016-09-21] MEDS ORDERED: NORMAL SALINE 1000 ML 1,000 ML IV ONE ×2 (23:12→23:14)
[2016-09-21] MEDS ORDERED: DIAZEPAM INJ 10 MG/2 ML DISP.SYRIN IV ONE (23:12)
--- NOTE | 2016-09-21 23:22 | ER Document Report ---
ED General - General Chief Complaint: Alcohol Withdrawl Stated Complaint: BODY ACHES Mode of Arrival: Medic Notes: Patient is a 71-year-old male who presents with complaint of alcohol abuse and possible withdrawal. Patient's mother several times in the past for alcohol abuse and offered rehabilitation. Most recently he was offered rehabilitation but decided he wanted to try outpatient rehabilitation. Patient's son does try to look after him, but also his full-time job.. Patient denies any recent falls. Son denies any recent falls other than when he was evaluated here last time for the hip pain. Some mentions that patient has been little bit slower to respond than usual and is concerned that maybe has some Alzheimer's dementia. He's also developed some edema in the lower extremities. TRAVEL OUTSIDE OF THE [place] IN LAST 30 DAYS: No - Related Data Allergies/Adverse Reactions: diphenhydramine HCl [From Benadryl] Allergy (Verified 09/16/16 17:37) Hyperactivity lisinopril [Lisinopril] Adverse Reaction (Severe, Verified 09/16/16 17:37) angioedema Past Medical History - Social History Smoking Status: Unknown if Ever Smoked Frequency of alcohol use: Heavy Drug Abuse: None Family History: CAD, COPD Patient has suicidal ideation: No Patient has homicidal ideation: No - Past Medical History Cardiac Medical History: Reports: Hx Atrial Fibrillation Denies: Hx Congestive Heart Failure, Hx Coronary Artery Disease, Hx Heart Attack, Hx Hypercholesterolemia, Hx Hypertension, Hx Peripheral Vascular Disease , Hx Heart Murmur Pulmonary Medical History: Reports: Hx COPD Renal/ Medical History: Denies: Hx Benign Prostatic Hyperplasia, Hx End Stage Renal Disease, Hx Kidney Stones, Hx Peritoneal Dialysis Malignancy Medical History: Reports Hx Prostate Cancer GI Medical History: Reports: Hx Hiatal Hernia. Denies: Hx Crohn's Disease, Hx Gastroesophageal Reflux Disease, Hx Irritable Bowel, Hx Liver Failure, Hx Ulcer Psychiatric Medical History: Reports: Hx Anxiety, Hx Depression Infectious Medical History: Reports: Hx C-Diff Past Surgical History: Reports: Hx Abdominal Surgery, Hx Herniorrhaphy, Hx Orthopedic Surgery - elbow, Hx Urinary Tract Surgery. Denies: Hx Appendectomy, Hx Bowel Surgery, Hx Cholecystectomy, Hx Colostomy, Hx Coronary Artery Bypass Graft, Hx Gastric Bypass Surgery, Hx Pacemaker, Hx Tonsillectomy - Immunizations Hx Diphtheria, Pertussis, Tetanus Vaccination: No Hx Pneumococcal Vaccination: 09/05/10 Review of Systems - Review of Systems Notes: My Normal Review Basic REVIEW OF SYSTEMS: CONSTITUTIONAL : Denies fever, chills, or sweats. Denies recent illness. EENT: Denies eye, ear, throat, or mouth pain or symptoms. Denies nasal or sinus congestion. RESPIRATORY: Denies cough, cold, or chest congestion. Denies shortness of breath, difficulty breathing, or wheezing. GASTROINTESTINAL: Denies abdominal pain. Denies nausea, vomiting, or diarrhea. Denies constipation. Last BM: MUSCULOSKELETAL: Hip pain from previous injury. SKIN: Denies rash or skin lesions. NEUROLOGICAL: Some confusion. Tremor. ALL OTHER SYSTEMS REVIEWED AND NEGATIVE. Physical Exam - Vital signs Vitals: Temp Pulse Resp BP Pulse Ox 97.8 F 84 16 159/78 H 96 09/21/16 20:28 09/21/16 20:28 09/21/16 20:28 09/21/16 20:28 09/21/16 20:28 - Notes Notes: General Appearance: Well nourished, alert, cooperative, no acute distress, no obvious discomfort. Vitals: reviewed, See vital signs table. Head: no swelling or tenderness to the head Eyes: PERRL, EOMI, Conjuctiva clear Mouth: No decreasd moisture Neck: Supple, no neck tenderness, No thyromegaly Lungs: No wheezing, No rales, No rhonci, No accessory muscle use, good air exchange bilaterally. Heart: Normal rate, Regular rythm, No murmur, no rub Abdomen: Normal BS, soft, No rigidity, No abdominal tenderness, No guarding, no rebound, no abdominal masses, no organomegaly Extremities: strength 5/5 in all extremities, good pulses in all extremities, pain to left hip., no edema. Skin: warm, dry, appropriate color, no rash Neuro: speech clear, oriented x 2, patient will answer questions but is slow to answer them. Patient has a tremor consistent with some alcohol withdrawal. Course - Vital Signs Vital signs: Temp Pulse Resp BP Pulse Ox 98.5 F 93 16 126/94 H 97 09/22/16 02:30 09/22/16 02:30 09/22/16 01:51 09/22/16 02:30 09/22/16 01:51 - Laboratory Result Diagrams: 09/21/16 22:36 09/22/16 01:00 Laboratory results interpreted by me: 09/21/16 09/21/16 22:36 22:36 RBC 3.67 L Hgb 12.4 L Hct 35.7 L MCH 33.7 H RDW 14.1 H Seg Neutrophils % 85.2 H Lymphocytes % 6.8 L Absolute Neutrophils 8.3 H Sodium 107.3 L* Chloride 71 L BUN 5 L - Transfer of Care Notes: 09/22/16 05:20 Patient has severe hyponatremia most likely related to his chronic alcoholism. I did speak with the hospitalist requested I give the patient hypertonic saline. I gave the patient 50 mL's over 30 minutes. He is having some withdrawal. He given some Valium. Patient will be admitted to the ICU for further treatment and management of his alcohol withdrawal and hyponatremia. No seizure-like activity in the ER. Dictation of this chart was performed using voice recognition software; therefore, there may be some unintended grammatical errors. Discharge - Discharge Clinical Impression: Hyponatremia, Alcohol abuse Alcohol withdrawal Qualifiers: Complication of substance-induced condition: with delirium Qualified Code(s): F10.231 - Alcohol dependence with withdrawal delirium Condition: Stable Disposition: ADMITTED INPATIENT Admitting Provider: Hospitalist Unit Admitted: ICU
[2016-09-21] MEDS ORDERED: FUROSEMIDE INJ/PF 40 MG/4 ML SDV IV ONE (23:29)
[2016-09-21] MEDS ORDERED: ACETAMINOPHEN 325 MG TABLET PO PRN (23:34)
[2016-09-21] MEDS ORDERED: ONDANSETRON HCL INJ/PF 4 MG/2 ML SDV IV PRN (23:34)
[2016-09-21] MEDS ORDERED: THIAMINE HCL 100 MG TABLET PO ONE (23:40)
[2016-09-22] MEDS: IPRATROPIUM/ALBUTEROL 0.5-2.5 MG/3 ML AMPUL NEB SCH ×4 (00:13→23:55)
[2016-09-22] MEDS ORDERED: ONDANSETRON HCL INJ/PF 4 MG/2 ML SDV IV ONE (00:22)
[2016-09-22] MEDS ORDERED: SODIUM CHLORIDE 3% 500 ML IV ONE (00:46)
[2016-09-22 01:45] LABS: CREATINE KINASE MB 1.46 ng/mL (<4.55)
[2016-09-22 01:49] LABS: TROPONIN I < 0.012 ng/mL
[2016-09-22 01:53] LABS: ANION GAP 14 (5-19); BLOOD UREA NITROGEN 5 mg/dL (7-20); CALCIUM 8.3 mg/dL (8.4-10.2); CARBON DIOXIDE 22 mmol/L (22-30); CHLORIDE 72 mmol/L (98-107); CREATINE KINASE 83 U/L (55-170); GLUCOSE 88 mg/dL (75-110); POTASSIUM 3.8 mmol/L (3.6-5.0)
[2016-09-22 01:55] LABS: SODIUM 107.5 mmol/L (137-145)
[2016-09-22] MEDS: LORAZEPAM INJ 2 MG/1 ML VIAL IV PRN ×5 (02:48→22:34)
[2016-09-22 03:37] LABS: APPEARANCE,URINE SLIGHTLY-CLOUDY; BILIRUBIN,URINE NEGATIVE (NEGATIVE); GLUCOSE, URINE NEGATIVE (NEGATIVE); KETONES,URINE NEGATIVE (NEGATIVE); LEUKOCYTE ESTERASE,URINE MODERATE (NEGATIVE); NITRITE,URINE NEGATIVE (NEGATIVE); PROTEIN,URINE NEGATIVE (NEGATIVE); URINE SPECIFIC GRAVITY 1.003; UROBILINOGEN,URINE NEGATIVE mg/dL (<2.0)
[2016-09-22 03:48] LABS: URINE CREATININE 10.2 mg/dL (22-328)
[2016-09-22] MEDS ORDERED: FOLIC ACID 1 MG TABLET ONE (03:55)
[2016-09-22] MEDS ORDERED: MULTIVITAMIN TABLET PO ONE ×2 (03:55→04:15)
[2016-09-22] MEDS ORDERED: THIAMINE HCL 100 MG TABLET ONE (03:56)
[2016-09-22 03:57] LABS: URINE BARBITURATES SCREEN NEGATIVE; URINE METHADONE SCREEN NEGATIVE; URINE PHENCYCLIDINE SCREEN NEGATIVE
[2016-09-22] MEDS ORDERED: FOLIC ACID 1 MG TABLET PO ONE (04:15)
[2016-09-22] MEDS ORDERED: THIAMINE HCL 100 MG TABLET PO ONE (05:00)
--- NOTE | 2016-09-22 05:59 | PDOC H&P ---
History of Present Illness Admission Date/PCP: 09/21/16 23:34 DONATO LEBLANC Patient complains of: Diffuse body aches History of Present Illness: HERBERT GOLDMAN is a 71 year old male with a past medical history of atrial fibrillation, COPD, alcohol dependence, tobacco dependence and recurrent hyponatremia. Who is well known to the hospital staff for alcoholism and complications including hyponatremia and alcohol withdrawal DTs and persistent refusal to attend alcohol rehabilitation. Who is brought into the emergency room by his son for complaints of diffuse body aches and begins to vomit. Patient himself is a poor historian and slow to verbalize from his baseline, labs obtained reveal critical hyponatremia. He started on hypertonic saline and referred referred to the hospitalist for admission. Patient son is at bedside verifies the patient drinks beer constantly throughout the day, discussion with by phone verifies his CODE STATUS to be full code. He receives Zofran, Ativan and 3% hypertonic saline and transferred to the ICU. Past Medical History Cardiac Medical History: Reports: Atrial Fibrillation Denies: Congestive Heart Failure, Coronary Artery Disease, Myocardial Infarction, Hyperlipidema, Hypertension, Peripheral Vascular Disease, Heart Murmur Pulmonary Medical History: Reports: Chronic Obstructive Pulmonary Disease (COPD) Renal/ Medical History: Denies: End Stage Renal Disease Malignancy Medical History: Denies: Breast Cancer, Cervical Cancer, Ovarian Cancer GI Medical History: Reports: Hiatal Hernia Denies: Crohn's Disease, Gastroesophageal Reflux Disease Psychiatric Medical History: Reports: Depression Infectious Medical History: Reports: Clostridium Difficile Past Surgical History Past Surgical History: Reports: Herniorrhaphy, Orthopedic Surgery - elbow Denies: Appendectomy, Cholecystectomy, Colostomy, Coronary Artery Bypass Graft, Gastric Bypass Surgery, Pacemaker, Tonsillectomy Social History Information Source: Patient Smoking Status: Unknown if Ever Smoked Frequency of Alcohol Use: Heavy Hx Recreational Drug Use: No Drugs: None Hx Prescription Drug Abuse: No - Advance Directive Resuscitation Status: Full Code Family History Family History: CAD, COPD Parental Family History Reviewed: Yes Children Family History Reviewed: Yes Sibling(s) Family History Reviewed.: Yes Medication/Allergy Home Medications: Dabigatran Etexilate Mesylate [Pradaxa 150 mg Capsule] 150 mg PO BID 09/10/16 Digoxin [Lanoxin 0.25 mg Tablet] 0.25 mg PO QAM 09/10/16 Diltiazem HCl [Diltiazem 24Hr Cd] 180 mg PO BID 09/10/16 Valsartan/Hydrochlorothiazide [Valsartan-Hctz 80-12.5 mg Tab] 1 tab PO QAM 09/10 Acetaminophen with Codeine [Tylenol #3 Tablet] 1 each PO Q6HP PRN #14 tablet 03/21 Allergies/Adverse Reactions: diphenhydramine HCl [From Benadryl] Allergy (Verified 09/16/16 17:37) Hyperactivity lisinopril [Lisinopril] Adverse Reaction (Severe, Verified 09/16/16 17:37) angioedema Review of Systems ROS unobtainable: Due to mental status Physical Exam Vital Signs: Temp Pulse Resp BP Pulse Ox 98.5 F 93 16 126/94 H 97 09/22/16 02:30 09/22/16 02:30 09/22/16 01:51 09/22/16 02:30 09/22/16 01:51 Intake & Output 09/20/16 09/21/16 09/22/16 11:59 11:59 11:59 Weight 92.6 kg General appearance: PRESENT: disheveled, severe distress. ABSENT: cooperative Head exam: PRESENT: atraumatic, normocephalic Eye exam: PRESENT: conjunctiva pink, EOMI, PERRLA. ABSENT: scleral icterus Ear exam: PRESENT: normal external ear exam Mouth exam: PRESENT: moist, tongue midline Neck exam: ABSENT: carotid bruit, JVD, lymphadenopathy, thyromegaly Respiratory exam: PRESENT: accessory muscle use, crackles, decreased breath sounds, prolonged expiratory phas, symmetrical, tachypnea, wheezes Cardiovascular exam: PRESENT: irregular rhythm, +S1, +S2 Pulses: PRESENT: normal dorsalis pedis pul Vascular exam: PRESENT: normal capillary refill GI/Abdominal exam: PRESENT: normal bowel sounds, soft. ABSENT: distended, guarding, mass, organolmegaly, rebound, tenderness Rectal exam: PRESENT: deferred Extremities exam: PRESENT: full ROM, +1 edema. ABSENT: calf tenderness, clubbing, pedal edema Neurological exam: PRESENT: altered, CN II-XII grossly intact Psychiatric exam: PRESENT: flat affect Skin exam: PRESENT: dry, intact, warm. ABSENT: cyanosis, rash Results Laboratory Results: 09/22/16 01:00 09/22/16 09/22/16 09/22/16 01:00 02:20 02:20 Sodium 107.5 L* Potassium 3.8 Chloride 72 L Carbon Dioxide 22 Anion Gap 14 BUN 5 L Creatinine 0.60 Est GFR ( Amer) > 60 Est GFR (Non-Af Amer) > 60 Glucose 88 Calcium 8.3 L Urine Color STRAW Urine Appearance SLIGHTLY-CLOUDY Urine pH 5.0 Ur Specific [place] 1.003 Urine Protein NEGATIVE Urine Glucose (UA) NEGATIVE Urine Ketones NEGATIVE Urine Blood SMALL H Urine Nitrite NEGATIVE Ur Leukocyte Esterase MODERATE H Urine WBC (Auto) 7 Urine RBC (Auto) 0 Urine Osmolality 167 L 09/22/16 09/22/16 01:00 01:00 Creatine Kinase 83 CK-MB (CK-2) 1.46 Troponin I < 0.012 Impressions: Chest X-Ray 09/22/16 00:00 IMPRESSION: Mild left basilar atelectasis. Assessment & Plan - Diagnosis (1) Hyponatremia Is this a current diagnosis for this admission?: YesPlan: Secondary to excessive beer intake and he is clearly volume overloaded, and vomiting. 3% saline is initiated on fluid restriction and symptomatic management with reevaluation of chemistry every 6 hours. (2) Alcohol abuse Is this a current diagnosis for this admission?: YesPlan: Thiamine folate when necessary Ativan and referral to outpatient rehabilitation though the patient has refused multiple previous attempts (3) Alcohol withdrawal Qualifiers: Complication of substance-induced condition: with delirium Qualified Code(s): F10.231 - Alcohol dependence with withdrawal delirium Is this a current diagnosis for this admission?: YesPlan: Ativan thymine and folate discharge planning consultation for rehabilitation (4) Atrial fibrillation Qualifiers: Atrial fibrillation type: chronic Qualified Code(s): I48.2 - Chronic atrial fibrillation Is this a current diagnosis for this admission?: YesPlan: Resume Cardizem - Time Time Spent: 50 to 70 Minutes
[2016-09-22] MEDS: HEPARIN SOD (PORCINE) 5,000 UNIT/ML 1 ML SYRINGE SUBCUT SCH ×3 (06:48→22:34)
[2016-09-22] MEDS ORDERED: SODIUM CHLORIDE 3% 500 ML IV PRN (07:55)
--- NOTE | 2016-09-22 08:18 | EKG REPORT ---
SEVERITY:- ABNORMAL ECG - ATRIAL FIBRILLATION, V-RATE 83-130 BORDERLINE T ABNORMALITIES, INFERIOR LEADS : Confirmed by: Arjun Mchugh MD 22-Sep-2016 08:17:54
[2016-09-22 08:34] LABS: ABSOLUTE BASOPHILS # (AUTO) 0.1 10^3/uL (0.0-0.2); ABSOLUTE EOSINOPHILS # (AUTO) 0.1 10^3/uL (0.0-0.6); ABSOLUTE LYMPHOCYTES (AUTO) 0.7 10^3/uL (0.5-4.7); ABSOLUTE MONOCYTES (AUTO) 0.8 10^3/uL (0.1-1.4); ABSOLUTE NEUT (AUTO) 4.5 10^3/uL (1.7-8.2); BASOPHILS % (AUTO) 0.9 % (0-2); EOSINOPHILS % (AUTO) 1.9 % (0-6); HEMOGLOBIN 11.5 g/dL (13.5-17.0); HGB HCT DIFFERENCE 1.5; LYMPHOCYTES % (AUTO) 11.7 % (13-45); MEAN CORPUSCULAR HEMOGLOBIN 33.9 pg (27.0-33.4); MEAN CORPUSCULAR VOLUME 97 fl (80-97); MONOCYTES % (AUTO) 13.1 % (3-13); RED BLOOD COUNT 3.41 10^6/uL (4.35-5.55); RED CELL DISTRIBUTION WIDTH 14.5 % (11.5-14.0); SEGMENTED NEUTROPHILS % (AUTO) 72.4 % (42-78); WHITE BLOOD COUNT 6.2 10^3/uL (4.0-10.5)
[2016-09-22 08:48] LABS: BLOOD UREA NITROGEN 6 mg/dL (7-20); CALCIUM 8.3 mg/dL (8.4-10.2); CHLORIDE 77 mmol/L (98-107); CREATININE RESULT 0.68 mg/dL (0.52-1.25); GLUCOSE 74 mg/dL (75-110); POTASSIUM 3.5 mmol/L (3.6-5.0)
[2016-09-22 08:50] LABS: ANION GAP 6 (5-19)
[2016-09-22 08:59] LABS: CREATINE KINASE MB 6.99 ng/mL (<4.55); SODIUM 115.1 mmol/L (137-145)
[2016-09-22 09:10] LABS: CARBON DIOXIDE 32 mmol/L (22-30); TROPONIN I < 0.012 ng/mL
[2016-09-22] MEDS ORDERED: NORMAL SALINE 1000 ML 1,000 ML with POTASSIUM CHLORIDE 20 MEQ IV PRN ×2 (09:30)
[2016-09-22] MEDS ORDERED: POTASSI CL 20 MEQ/NS 1L 1000 ML IV PRN (09:44)
[2016-09-22] MEDS: DOCUSATE SODIUM 100 MG CAPSULE PO SCH ×2 (10:14→18:43)
[2016-09-22] MEDS: DILTIAZEM HCL 120 MG CAP.SR.24H PO SCH ×2 (10:14→22:33)
[2016-09-22 11:50] LABS: ANION GAP 8 (5-19); BLOOD UREA NITROGEN 6 mg/dL (7-20); CALCIUM 8.7 mg/dL (8.4-10.2); CARBON DIOXIDE 30 mmol/L (22-30); CHLORIDE 80 mmol/L (98-107); CREATINE KINASE 294 U/L (55-170); CREATININE RESULT 0.69 mg/dL (0.52-1.25); GLUCOSE 77 mg/dL (75-110); MAGNESIUM 1.8 mg/dL (1.6-2.3); PHOSPHORUS 3.4 mg/dL (2.5-4.5); POTASSIUM 3.8 mmol/L (3.6-5.0)
[2016-09-22 11:54] LABS: SODIUM 118.2 mmol/L (137-145)
[2016-09-22 12:48] LABS: ANION GAP 8 (5-19); BLOOD UREA NITROGEN 7 mg/dL (7-20); CALCIUM 8.5 mg/dL (8.4-10.2); CARBON DIOXIDE 27 mmol/L (22-30); CHLORIDE 82 mmol/L (98-107); CREATININE RESULT 0.59 mg/dL (0.52-1.25); GLUCOSE 92 mg/dL (75-110); POTASSIUM 3.8 mmol/L (3.6-5.0)
[2016-09-22 12:59] LABS: SODIUM 117.2 mmol/L (137-145)
[2016-09-22 15:14] LABS: BLOOD UREA NITROGEN 7 mg/dL (7-20); CALCIUM 8.8 mg/dL (8.4-10.2); CARBON DIOXIDE 30 mmol/L (22-30); CHLORIDE 83 mmol/L (98-107); CREATININE RESULT 0.74 mg/dL (0.52-1.25); GLUCOSE 80 mg/dL (75-110); POTASSIUM 4.2 mmol/L (3.6-5.0)
[2016-09-22 15:27] LABS: CREATINE KINASE MB 6.16 ng/mL (<4.55)
[2016-09-22 15:29] LABS: ANION GAP 7 (5-19)
[2016-09-22 15:33] LABS: TROPONIN I < 0.012 ng/mL
[2016-09-22] MEDS ORDERED: DEXTROSE 5%-WATER 1000 ML 1,000 ML IV PRN ×2 (16:30→16:41)
[2016-09-22 17:03] LABS: BLOOD UREA NITROGEN 8 mg/dL (7-20); CALCIUM 8.9 mg/dL (8.4-10.2); CARBON DIOXIDE 28 mmol/L (22-30); CHLORIDE 85 mmol/L (98-107); CREATININE RESULT 0.59 mg/dL (0.52-1.25); GLUCOSE 77 mg/dL (75-110); POTASSIUM 4.2 mmol/L (3.6-5.0)
[2016-09-22 17:09] LABS: ANION GAP 8 (5-19)
[2016-09-22 17:14] LABS: SODIUM 120.7 mmol/L (137-145)
--- NOTE | 2016-09-22 17:50 | PDOC CONSULTATION ---
Consultation Consult Date: 09/22/16 Consult reason:: Acute hyponatremia History of Present Illness Admission Date/PCP: 09/21/16 23:34 DONATO LEBLANC History of Present Illness: Mr. Rivera is a 71 years old male with a history of hypertension, atrial fibrillation and chronic alcoholism with history of multiple admissions for hyponatremia and DTs was brought into the hospital by his son after complaining of aches and pains and becoming very weak. He continues to drink lots of beer on a daily basis but does not want to quantify exactly how much he drinks. He was rather lethargic and a poor historian during his initial admission phase but right now he is bit more awake and more responsive. He is alert and oriented 3 even though he looks very weak and quite sick. He denies any history of headaches. No history to indicate having had any seizures. No history of any tongue bites. He apparently looks to have a trauma on the right cheek. He denies any history of chest pain abdominal pains. No history of GI bleeds. He admits to taking 3 Aleve a day for the last 2 weeks for arthritis. He was hemodynamically stable. After initial evaluation she was found to have a sodium level of 107. He was begun on hypertonic saline and admitted to the ICU for further evaluations and management.. Past Medical History Cardiac Medical History: Reports: Atrial Fibrillation Denies: Coronary Artery Disease, Heart Murmur, Hyperlipidemia, Myocardial Infarction, Peripheral Vascular Disease Pulmonary Medical History: Reports: Chronic Obstructive Pulmonary Disease (COPD) Renal/ Medical History: Denies: Benign Prostatic Hyperplasia Malignancy Medical History: Denies: Breast Cancer, Cervical Cancer, Ovarian Cancer GI Medical History: Reports: Hiatal Hernia Denies: Crohn's Disease, Gastroesophageal Reflux Disease Psychiatric Medical History: Reports: Alcohol Dependency, Depression Infectious Medical History: Reports: Clostridium Difficile Past Surgical History Past Surgical History: Reports: Herniorrhaphy, Orthopedic Surgery - elbow Denies: Appendectomy, Cholecystectomy, Colostomy, Coronary Artery Bypass Graft, Gastric Bypass Surgery, Pacemaker, Tonsillectomy Social History Smoking Status: Unknown if Ever Smoked Frequency of Alcohol Use: Heavy Hx Recreational Drug Use: No Drugs: None Hx Prescription Drug Abuse: No - Advance Directive Resuscitation Status: Full Code Family History Parental Family History Reviewed: No Children Family History Reviewed: No Sibling(s) Family History Reviewed.: No Medication/Allergy Home Medications: Amitriptyline HCl [Elavil 50 mg Tablet] 50 mg PO QPMP PRN 09/22/16 Allergies/Adverse Reactions: diphenhydramine HCl [From Benadryl] Allergy (Verified 09/16/16 17:37) Hyperactivity lisinopril [Lisinopril] Adverse Reaction (Severe, Verified 09/16/16 17:37) angioedema Review of Systems Review of Systems: Constitutional: PRESENT: as per HPI. ABSENT: chills, fever(s), headache(s), weight gain, weight loss Eyes: ABSENT: visual disturbances Ears: ABSENT: hearing changes Cardiovascular: ABSENT: chest pain, dyspnea on exertion, edema, orthropnea, palpitations Respiratory: ABSENT: cough, hemoptysis Gastrointestinal: ABSENT: abdominal pain, constipation, diarrhea, hematemesis, hematochezia, nausea, vomiting Genitourinary: ABSENT: dysuria, hematuria Musculoskeletal: ABSENT: joint swelling Integumentary: ABSENT: rash, wounds Neurological: ABSENT: abnormal gait, abnormal speech, focal weakness, syncope Psychiatric: ABSENT: anxiety,, suicidal ideation Endocrine: ABSENT: cold intolerance, heat intolerance, menstrual abnormalities, polydipsia, polyuria Hematologic/Lymphatic: ABSENT: easy bleeding, easy bruising, lymphadenopathy Physical Exam Vital Signs: Temp Pulse Resp BP Pulse Ox 98.4 F 85 12 139/90 H 100 09/22/16 16:00 09/22/16 16:00 09/22/16 16:00 09/22/16 16:00 09/22/16 16:00 Intake & Output 09/21/16 09/22/16 09/23/16 06:59 06:59 06:59 Output Total 675 300 Balance -675 -300 Weight 92.6 kg General appearance: PRESENT: no acute distress Eye exam: PRESENT: EOMI, PERRLA, other - At 2 cm ecchymosis on his right cheek.. ABSENT: nystagmus, periorbital swelling Mouth exam: PRESENT: neck supple. ABSENT: moist Neck exam: ABSENT: meningismus, tenderness, thyromegaly, tracheal deviation Respiratory exam: PRESENT: clear to auscultation reji, symmetrical. ABSENT: crackles Cardiovascular exam: PRESENT: +S1, +S2 GI/Abdominal exam: PRESENT: normal bowel sounds, soft. ABSENT: diminished bowel sounds, distended, firm, guarding, tenderness Extremities exam: ABSENT: pedal edema Neurological exam: PRESENT: oriented to person, oriented to place, oriented to time Psychiatric exam: PRESENT: flat affect Skin exam: ABSENT: erythema, mottled, petechiae, rash Results Laboratory Results: 09/22/16 08:18 09/22/16 16:30 09/22/16 09/22/16 09/22/16 01:00 02:20 02:20 WBC RBC Hgb Hct MCV MCH MCHC RDW Plt Count Seg Neutrophils % Lymphocytes % Monocytes % Eosinophils % Basophils % Absolute Neutrophils Absolute Lymphocytes Absolute Monocytes Absolute Eosinophils Absolute Basophils Sodium 107.5 L* Potassium 3.8 Chloride 72 L Carbon Dioxide 22 Anion Gap 14 BUN 5 L Creatinine 0.60 Est GFR ( Amer) > 60 Est GFR (Non-Af Amer) > 60 Glucose 88 Calcium 8.3 L Phosphorus Magnesium Urine Color STRAW Urine Appearance SLIGHTLY-CLOUDY Urine pH 5.0 Ur Specific Groom 1.003 Urine Protein NEGATIVE Urine Glucose (UA) NEGATIVE Urine Ketones NEGATIVE Urine Blood SMALL H Urine Nitrite NEGATIVE Ur Leukocyte Esterase MODERATE H Urine WBC (Auto) 7 Urine RBC (Auto) 0 Urine Osmolality 167 L 09/22/16 09/22/16 09/22/16 08:18 08:18 11:05 WBC 6.2 RBC 3.41 L Hgb 11.5 L Hct 33.0 L MCV 97 MCH 33.9 H MCHC 35.0 RDW 14.5 H Plt Count 279 Seg Neutrophils % 72.4 Lymphocytes % 11.7 L Monocytes % 13.1 H Eosinophils % 1.9 Basophils % 0.9 Absolute Neutrophils 4.5 Absolute Lymphocytes 0.7 Absolute Monocytes 0.8 Absolute Eosinophils 0.1 Absolute Basophils 0.1 Sodium 115.1 L* 118.2 L* Potassium 3.5 L 3.8 Chloride 77 L 80 L Carbon Dioxide 32 H D 30 Anion Gap 6 8 BUN 6 L 6 L Creatinine 0.68 0.69 Est GFR ( Amer) > 60 > 60 Est GFR (Non-Af Amer) > 60 > 60 Glucose 74 L 77 Calcium 8.3 L 8.7 Phosphorus 3.4 Magnesium 1.8 Urine Color Urine Appearance Urine pH Ur Specific Groom Urine Protein Urine Glucose (UA) Urine Ketones Urine Blood Urine Nitrite Ur Leukocyte Esterase Urine WBC (Auto) Urine RBC (Auto) Urine Osmolality 09/22/16 09/22/16 09/22/16 12:22 14:40 16:30 WBC RBC Hgb Hct MCV MCH MCHC RDW Plt Count Seg Neutrophils % Lymphocytes % Monocytes % Eosinophils % Basophils % Absolute Neutrophils Absolute Lymphocytes Absolute Monocytes Absolute Eosinophils Absolute Basophils Sodium 117.2 L* 120.0 L* 120.7 L* Potassium 3.8 4.2 4.2 Chloride 82 L 83 L 85 L Carbon Dioxide 27 30 28 Anion Gap 8 7 8 BUN 7 7 8 Creatinine 0.59 0.74 0.59 Est GFR ( Amer) > 60 > 60 > 60 Est GFR (Non-Af Amer) > 60 > 60 > 60 Glucose 92 80 77 Calcium 8.5 8.8 8.9 Phosphorus Magnesium Urine Color Urine Appearance Urine pH Ur Specific Groom Urine Protein Urine Glucose (UA) Urine Ketones Urine Blood Urine Nitrite Ur Leukocyte Esterase Urine WBC (Auto) Urine RBC (Auto) Urine Osmolality 09/22/16 09/22/16 09/22/16 01:00 01:00 08:18 Creatine Kinase 83 246 H CK-MB (CK-2) 1.46 Troponin I < 0.012 09/22/16 09/22/16 09/22/16 08:18 11:05 14:40 Creatine Kinase 294 H CK-MB (CK-2) 6.99 H 6.16 H Troponin I < 0.012 < 0.012 Impressions: Chest X-Ray 09/22/16 00:00 IMPRESSION: Mild left basilar atelectasis. Assessment & Plan - Diagnosis (1) Alcohol abuse Is this a current diagnosis for this admission?: YesPlan: Being treated for delirium tremens. Monitor for withdrawal. (2) Atrial fibrillation Qualifiers: Atrial fibrillation type: chronic Qualified Code(s): I48.2 - Chronic atrial fibrillation Is this a current diagnosis for this admission?: Yes (3) Acute hyponatremia Plan: Patient is being treated appropriately. His latest sodium this morning was 117. Therefore I am going to stop the hypertonic. Will start him gently on normal saline and monitor his labs. We might have to switch him to D5 at some point down the road if he gets any higher. Discussed this with the treating nurse Caity. Monitor for CPM.However he has chronically low sodium in the high 120s.
[2016-09-22 19:53] LABS: ANION GAP 7 (5-19); BLOOD UREA NITROGEN 8 mg/dL (7-20); CALCIUM 8.9 mg/dL (8.4-10.2); CARBON DIOXIDE 31 mmol/L (22-30); CHLORIDE 84 mmol/L (98-107); CREATININE RESULT 0.68 mg/dL (0.52-1.25); GLUCOSE 130 mg/dL (75-110); POTASSIUM 3.5 mmol/L (3.6-5.0); SODIUM 121.6 mmol/L (137-145)
[2016-09-23] MEDS: LORAZEPAM INJ 2 MG/1 ML VIAL IV PRN ×7 (04:04→23:57)
[2016-09-23 04:13] LABS: ABSOLUTE EOSINOPHILS # (AUTO) 0.1 10^3/uL (0.0-0.6); ABSOLUTE LYMPHOCYTES (AUTO) 0.6 10^3/uL (0.5-4.7); ABSOLUTE MONOCYTES (AUTO) 0.5 10^3/uL (0.1-1.4); ABSOLUTE NEUT (AUTO) 4.7 10^3/uL (1.7-8.2); BASOPHILS % (AUTO) 0.6 % (0-2); EOSINOPHILS % (AUTO) 0.9 % (0-6); HEMOGLOBIN 11.9 g/dL (13.5-17.0); HGB HCT DIFFERENCE -0.3; LYMPHOCYTES % (AUTO) 10.2 % (13-45); MEAN CORPUSCULAR HEMOGLOBIN 32.5 pg (27.0-33.4); MEAN CORPUSCULAR VOLUME 99 fl (80-97); MONOCYTES % (AUTO) 8.8 % (3-13); RED BLOOD COUNT 3.66 10^6/uL (4.35-5.55); RED CELL DISTRIBUTION WIDTH 14.5 % (11.5-14.0); SEGMENTED NEUTROPHILS % (AUTO) 79.5 % (42-78); WHITE BLOOD COUNT 5.8 10^3/uL (4.0-10.5)
[2016-09-23 04:29] LABS: ANION GAP 5 (5-19); BLOOD UREA NITROGEN 8 mg/dL (7-20); CARBON DIOXIDE 30 mmol/L (22-30); CHLORIDE 91 mmol/L (98-107); CREATININE RESULT 0.62 mg/dL (0.52-1.25); GLUCOSE 117 mg/dL (75-110); POTASSIUM 3.5 mmol/L (3.6-5.0); SODIUM 125.9 mmol/L (137-145)
[2016-09-23] MEDS: HEPARIN SOD (PORCINE) 5,000 UNIT/ML 1 ML SYRINGE SUBCUT SCH ×3 (06:04→21:22)
[2016-09-23] MEDS: DEXTROSE 5%-WATER 1000 ML 1,000 ML IV PRN ×2 (06:05→16:15)
--- NOTE | 2016-09-23 08:21 | PDOC PROGRESS REPORT ---
Subjective Progress Note for:: 09/22/16 Subjective:: Patient states he's feeling better this morning he had no signs of alcohol withdrawal His mentation is been great through the night and he has been hemodynamically stable No seizures His sodium is climbing up too fast and D5W drip was initiated Physical Exam Vital Signs: Temp Pulse Resp BP Pulse Ox 97.5 F 95 18 135/77 H 97 09/23/16 08:00 09/23/16 08:00 09/23/16 08:00 09/23/16 08:00 09/23/16 08:00 Intake & Output 09/22/16 09/23/16 09/24/16 00:59 00:59 00:59 Intake Total 932 1206 Output Total 2055 600 Balance -1123 606 Weight 92.6 kg 87.9 kg General appearance: PRESENT: no acute distress, well-developed, well-nourished Head exam: PRESENT: atraumatic, normocephalic Eye exam: PRESENT: conjunctiva pink, EOMI, PERRLA. ABSENT: scleral icterus Ear exam: PRESENT: normal external ear exam Mouth exam: PRESENT: moist, tongue midline Neck exam: ABSENT: carotid bruit, JVD, lymphadenopathy, thyromegaly Respiratory exam: PRESENT: clear to auscultation reji. ABSENT: rales, rhonchi, wheezes Cardiovascular exam: PRESENT: RRR. ABSENT: diastolic murmur, rubs, systolic murmur Pulses: PRESENT: normal dorsalis pedis pul Vascular exam: PRESENT: normal capillary refill GI/Abdominal exam: PRESENT: normal bowel sounds, soft. ABSENT: distended, guarding, mass, organolmegaly, rebound, tenderness Rectal exam: PRESENT: deferred Extremities exam: PRESENT: full ROM. ABSENT: calf tenderness, clubbing, pedal edema Neurological exam: PRESENT: alert, awake, oriented to person, oriented to place , oriented to time, oriented to situation, CN II-XII grossly intact. ABSENT: motor sensory deficit Psychiatric exam: PRESENT: appropriate affect, normal mood. ABSENT: homicidal ideation, suicidal ideation Skin exam: PRESENT: dry, intact, warm. ABSENT: cyanosis, rash Results Laboratory Results: 09/23/16 04:00 09/23/16 04:00 09/22/16 09/22/16 09/22/16 08:18 08:18 11:05 WBC 6.2 RBC 3.41 L Hgb 11.5 L Hct 33.0 L MCV 97 MCH 33.9 H MCHC 35.0 RDW 14.5 H Plt Count 279 Seg Neutrophils % 72.4 Lymphocytes % 11.7 L Monocytes % 13.1 H Eosinophils % 1.9 Basophils % 0.9 Absolute Neutrophils 4.5 Absolute Lymphocytes 0.7 Absolute Monocytes 0.8 Absolute Eosinophils 0.1 Absolute Basophils 0.1 Sodium 115.1 L* 118.2 L* Potassium 3.5 L 3.8 Chloride 77 L 80 L Carbon Dioxide 32 H D 30 Anion Gap 6 8 BUN 6 L 6 L Creatinine 0.68 0.69 Est GFR ( Amer) > 60 > 60 Est GFR (Non-Af Amer) > 60 > 60 Glucose 74 L 77 Calcium 8.3 L 8.7 Phosphorus 3.4 Magnesium 1.8 09/22/16 09/22/16 09/22/16 12:22 14:40 16:30 WBC RBC Hgb Hct MCV MCH MCHC RDW Plt Count Seg Neutrophils % Lymphocytes % Monocytes % Eosinophils % Basophils % Absolute Neutrophils Absolute Lymphocytes Absolute Monocytes Absolute Eosinophils Absolute Basophils Sodium 117.2 L* 120.0 L* 120.7 L* Potassium 3.8 4.2 4.2 Chloride 82 L 83 L 85 L Carbon Dioxide 27 30 28 Anion Gap 8 7 8 BUN 7 7 8 Creatinine 0.59 0.74 0.59 Est GFR ( Amer) > 60 > 60 > 60 Est GFR (Non-Af Amer) > 60 > 60 > 60 Glucose 92 80 77 Calcium 8.5 8.8 8.9 Phosphorus Magnesium 09/22/16 09/23/16 09/23/16 19:25 04:00 04:00 WBC 5.8 RBC 3.66 L Hgb 11.9 L Hct 36.0 L MCV 99 H MCH 32.5 MCHC 33.0 RDW 14.5 H Plt Count 279 Seg Neutrophils % 79.5 H Lymphocytes % 10.2 L Monocytes % 8.8 Eosinophils % 0.9 Basophils % 0.6 Absolute Neutrophils 4.7 Absolute Lymphocytes 0.6 Absolute Monocytes 0.5 Absolute Eosinophils 0.1 Absolute Basophils 0.0 Sodium 121.6 L 125.9 L Potassium 3.5 L 3.5 L Chloride 84 L 91 L Carbon Dioxide 31 H 30 Anion Gap 7 5 BUN 8 8 Creatinine 0.68 0.62 Est GFR ( Amer) > 60 > 60 Est GFR (Non-Af Amer) > 60 > 60 Glucose 130 H 117 H Calcium 8.9 9.0 Phosphorus Magnesium 09/22/16 09/22/16 09/22/16 01:00 01:00 08:18 Creatine Kinase 83 246 H CK-MB (CK-2) 1.46 Troponin I < 0.012 09/22/16 09/22/16 09/22/16 08:18 11:05 14:40 Creatine Kinase 294 H CK-MB (CK-2) 6.99 H 6.16 H Troponin I < 0.012 < 0.012 Impressions: Chest X-Ray 09/22/16 00:00 IMPRESSION: Mild left basilar atelectasis. Assessment & Plan - Diagnosis (1) Chronic atrial fibrillation Is this a current diagnosis for this admission?: YesPlan: Rate controlled chronically anticoagulated Continue Cardizem (2) Alcohol abuse Is this a current diagnosis for this admission?: YesPlan: Banana bag Thiamine replacement (3) Alcohol withdrawal Qualifiers: Complication of substance-induced condition: with delirium Qualified Code(s): F10.231 - Alcohol dependence with withdrawal delirium Is this a current diagnosis for this admission?: YesPlan: Patient had delirium in the ED which may have been associated with severe hyponatremia Continue Ativan when necessary (4) Hyponatremia Is this a current diagnosis for this admission?: YesPlan: Secondary to dilutional hyponatremia Secondary to alcohol abuse Continue fluid restriction 3% saline has been discontinued Continue D5W IV to maintain sodium around 120 for 24 hours (5) Chronic anticoagulation Is this a current diagnosis for this admission?: YesPlan: Continue - Time Critical Time spent with patient: 25-34 minutes - We will keep the patient another 24 hours in the intensive care unit Transfer him tomorrow to [facility] if his condition remains stable
--- NOTE | 2016-09-23 08:24 | PDOC PROGRESS REPORT ---
Subjective Progress Note for:: 09/23/16 Subjective:: Patient's condition has been extremely stable through the night No seizures No withdrawal from alcohol Is alert and awake eating his breakfast this morning He has no complaints feels well Serum sodium is 125 He is still on a D5W drip and fluid restriction has been increased to 1500 mL per 24 hours Physical Exam Vital Signs: Temp Pulse Resp BP Pulse Ox 97.5 F 95 18 135/77 H 97 09/23/16 08:00 09/23/16 08:00 09/23/16 08:00 09/23/16 08:00 09/23/16 08:00 Intake & Output 09/22/16 09/23/16 09/24/16 00:59 00:59 00:59 Intake Total 932 1206 Output Total 2055 600 Balance -1123 606 Weight 92.6 kg 87.9 kg Results Laboratory Results: 09/23/16 04:00 09/23/16 04:00 09/22/16 09/22/16 09/22/16 08:18 08:18 11:05 WBC 6.2 RBC 3.41 L Hgb 11.5 L Hct 33.0 L MCV 97 MCH 33.9 H MCHC 35.0 RDW 14.5 H Plt Count 279 Seg Neutrophils % 72.4 Lymphocytes % 11.7 L Monocytes % 13.1 H Eosinophils % 1.9 Basophils % 0.9 Absolute Neutrophils 4.5 Absolute Lymphocytes 0.7 Absolute Monocytes 0.8 Absolute Eosinophils 0.1 Absolute Basophils 0.1 Sodium 115.1 L* 118.2 L* Potassium 3.5 L 3.8 Chloride 77 L 80 L Carbon Dioxide 32 H D 30 Anion Gap 6 8 BUN 6 L 6 L Creatinine 0.68 0.69 Est GFR ( Amer) > 60 > 60 Est GFR (Non-Af Amer) > 60 > 60 Glucose 74 L 77 Calcium 8.3 L 8.7 Phosphorus 3.4 Magnesium 1.8 09/22/16 09/22/16 09/22/16 12:22 14:40 16:30 WBC RBC Hgb Hct MCV MCH MCHC RDW Plt Count Seg Neutrophils % Lymphocytes % Monocytes % Eosinophils % Basophils % Absolute Neutrophils Absolute Lymphocytes Absolute Monocytes Absolute Eosinophils Absolute Basophils Sodium 117.2 L* 120.0 L* 120.7 L* Potassium 3.8 4.2 4.2 Chloride 82 L 83 L 85 L Carbon Dioxide 27 30 28 Anion Gap 8 7 8 BUN 7 7 8 Creatinine 0.59 0.74 0.59 Est GFR ( Amer) > 60 > 60 > 60 Est GFR (Non-Af Amer) > 60 > 60 > 60 Glucose 92 80 77 Calcium 8.5 8.8 8.9 Phosphorus Magnesium 09/22/16 09/23/16 09/23/16 19:25 04:00 04:00 WBC 5.8 RBC 3.66 L Hgb 11.9 L Hct 36.0 L MCV 99 H MCH 32.5 MCHC 33.0 RDW 14.5 H Plt Count 279 Seg Neutrophils % 79.5 H Lymphocytes % 10.2 L Monocytes % 8.8 Eosinophils % 0.9 Basophils % 0.6 Absolute Neutrophils 4.7 Absolute Lymphocytes 0.6 Absolute Monocytes 0.5 Absolute Eosinophils 0.1 Absolute Basophils 0.0 Sodium 121.6 L 125.9 L Potassium 3.5 L 3.5 L Chloride 84 L 91 L Carbon Dioxide 31 H 30 Anion Gap 7 5 BUN 8 8 Creatinine 0.68 0.62 Est GFR ( Amer) > 60 > 60 Est GFR (Non-Af Amer) > 60 > 60 Glucose 130 H 117 H Calcium 8.9 9.0 Phosphorus Magnesium 09/22/16 09/22/16 09/22/16 01:00 01:00 08:18 Creatine Kinase 83 246 H CK-MB (CK-2) 1.46 Troponin I < 0.012 09/22/16 09/22/16 09/22/16 08:18 11:05 14:40 Creatine Kinase 294 H CK-MB (CK-2) 6.99 H 6.16 H Troponin I < 0.012 < 0.012 09/22/16 09/23/16 19:25 04:00 Sodium 121.6 L 125.9 L Impressions: Chest X-Ray 09/22/16 00:00 IMPRESSION: Mild left basilar atelectasis. Assessment & Plan - Diagnosis (1) Chronic atrial fibrillation Is this a current diagnosis for this admission?: Yes (2) Alcohol abuse Is this a current diagnosis for this admission?: Yes (3) Alcohol withdrawal Qualifiers: Complication of substance-induced condition: with delirium Qualified Code(s): F10.231 - Alcohol dependence with withdrawal delirium Is this a current diagnosis for this admission?: Yes (4) Hyponatremia Is this a current diagnosis for this admission?: Yes (5) Chronic anticoagulation Is this a current diagnosis for this admission?: Yes - Time Time Spent with patient: Patient is extremely stable at this time We will downgrade him to an IMCU unit Continue the present management Repeat BMP at 12 noon reevaluate management then Time Spent with patient: 25-34 minutes
[2016-09-23] MEDS: IPRATROPIUM/ALBUTEROL 0.5-2.5 MG/3 ML AMPUL NEB SCH ×3 (08:30→23:27)
[2016-09-23] MEDS: DOCUSATE SODIUM 100 MG CAPSULE PO SCH ×2 (10:49→19:20)
[2016-09-23] MEDS: DILTIAZEM HCL 120 MG CAP.SR.24H PO SCH ×2 (10:49→21:23)
--- NOTE | 2016-09-23 13:25 | PDOC PROGRESS REPORT ---
Subjective Progress Note for:: 09/23/16 Subjective:: Patient was seen in the ICU today. He is more awake and responsive. He denies any history of chest pain shortness of breath. No history of any headaches or seizures. Was also started to eat. No obvious evidence of Stewarts alcohol withdrawal. Is currently on D5W. Labs were reviewed. Physical Exam Vital Signs: Temp Pulse Resp BP Pulse Ox 97.7 F 121 H 20 115/82 95 09/23/16 12:00 09/23/16 12:00 09/23/16 12:00 09/23/16 12:00 09/23/16 12:00 Intake & Output 09/22/16 09/23/16 09/24/16 06:59 06:59 06:59 Intake Total 1901 474 Output Total 675 1980 200 Balance -675 -79 274 Weight 92.6 kg 87.9 kg General appearance: PRESENT: no acute distress Respiratory exam: PRESENT: clear to auscultation reji, symmetrical. ABSENT: crackles Cardiovascular exam: PRESENT: +S1, +S2 GI/Abdominal exam: PRESENT: normal bowel sounds, soft. ABSENT: diminished bowel sounds, distended, firm, guarding, tenderness Neurological exam: PRESENT: awake, oriented to person, oriented to place, oriented to time Psychiatric exam: PRESENT: flat affect Results Laboratory Results: 09/23/16 04:00 09/23/16 04:00 09/22/16 09/22/16 09/22/16 14:40 16:30 19:25 WBC RBC Hgb Hct MCV MCH MCHC RDW Plt Count Seg Neutrophils % Lymphocytes % Monocytes % Eosinophils % Basophils % Absolute Neutrophils Absolute Lymphocytes Absolute Monocytes Absolute Eosinophils Absolute Basophils Sodium 120.0 L* 120.7 L* 121.6 L Potassium 4.2 4.2 3.5 L Chloride 83 L 85 L 84 L Carbon Dioxide 30 28 31 H Anion Gap 7 8 7 BUN 7 8 8 Creatinine 0.74 0.59 0.68 Est GFR ( Amer) > 60 > 60 > 60 Est GFR (Non-Af Amer) > 60 > 60 > 60 Glucose 80 77 130 H Calcium 8.8 8.9 8.9 09/23/16 09/23/16 04:00 04:00 WBC 5.8 RBC 3.66 L Hgb 11.9 L Hct 36.0 L MCV 99 H MCH 32.5 MCHC 33.0 RDW 14.5 H Plt Count 279 Seg Neutrophils % 79.5 H Lymphocytes % 10.2 L Monocytes % 8.8 Eosinophils % 0.9 Basophils % 0.6 Absolute Neutrophils 4.7 Absolute Lymphocytes 0.6 Absolute Monocytes 0.5 Absolute Eosinophils 0.1 Absolute Basophils 0.0 Sodium 125.9 L Potassium 3.5 L Chloride 91 L Carbon Dioxide 30 Anion Gap 5 BUN 8 Creatinine 0.62 Est GFR ( Amer) > 60 Est GFR (Non-Af Amer) > 60 Glucose 117 H Calcium 9.0 09/22/16 03:05 Nasophary (Mrsa Only) MRSA Surveillance Culture - Final MRSA RECOVERED 09/22/16 09/22/16 09/22/16 01:00 01:00 08:18 Creatine Kinase 83 246 H CK-MB (CK-2) 1.46 Troponin I < 0.012 09/22/16 09/22/16 09/22/16 08:18 11:05 14:40 Creatine Kinase 294 H CK-MB (CK-2) 6.99 H 6.16 H Troponin I < 0.012 < 0.012 Impressions: Chest X-Ray 09/22/16 00:00 IMPRESSION: Mild left basilar atelectasis. Assessment & Plan - Diagnosis (1) Alcohol abuse Is this a current diagnosis for this admission?: YesPlan: Advised on abstinence. (2) Acute hyponatremia Plan: Patient's latest sodium today is 125. He is stable. Does not show any signs of neurological deficits. His correction has been as per plans. He is on currently D5W. Advised him about abstinence from alcohol. On discharge I would put him on plain lisinopril instead of lisinopril HCT.
[2016-09-23 15:08] LABS: ANION GAP 6 (5-19); BLOOD UREA NITROGEN 7 mg/dL (7-20); CALCIUM 9.1 mg/dL (8.4-10.2); CARBON DIOXIDE 28 mmol/L (22-30); CHLORIDE 90 mmol/L (98-107); CREATININE RESULT 0.57 mg/dL (0.52-1.25); GLUCOSE 116 mg/dL (75-110); POTASSIUM 3.7 mmol/L (3.6-5.0); SODIUM 124.3 mmol/L (137-145)
[2016-09-23] MEDS ORDERED: ZOLPIDEM TARTRATE 5 MG TABLET PO SCH (22:00)
[2016-09-24] MEDS: LORAZEPAM INJ 2 MG/1 ML VIAL IV PRN ×3 (02:10→08:45)
[2016-09-24] MEDS ORDERED: OLANZAPINE INJ/PF 10 MG SDV IM ONE (05:42)
[2016-09-24] MEDS ORDERED: LORAZEPAM INJ 2 MG/1 ML VIAL IV PRN (05:42)
[2016-09-24] MEDS: HEPARIN SOD (PORCINE) 5,000 UNIT/ML 1 ML SYRINGE SUBCUT SCH (05:44)
[2016-09-24 07:37] LABS: ABSOLUTE BASOPHILS # (AUTO) 0.1 10^3/uL (0.0-0.2); ABSOLUTE EOSINOPHILS # (AUTO) 0.1 10^3/uL (0.0-0.6); ABSOLUTE LYMPHOCYTES (AUTO) 0.5 10^3/uL (0.5-4.7); ABSOLUTE MONOCYTES (AUTO) 0.8 10^3/uL (0.1-1.4); ABSOLUTE NEUT (AUTO) 4.9 10^3/uL (1.7-8.2); BASOPHILS % (AUTO) 0.8 % (0-2); EOSINOPHILS % (AUTO) 2.3 % (0-6); HEMATOCRIT 36.5 % (37.9-51.0); HEMOGLOBIN 12.3 g/dL (13.5-17.0); HGB HCT DIFFERENCE 0.4; LYMPHOCYTES % (AUTO) 7.8 % (13-45); MEAN CORPUSCULAR HEMOGLOBIN 33.5 pg (27.0-33.4); MEAN CORPUSCULAR HGB CONC 33.6 g/dL (32.0-36.0); MEAN CORPUSCULAR VOLUME 100 fl (80-97); MONOCYTES % (AUTO) 12.7 % (3-13); RED BLOOD COUNT 3.66 10^6/uL (4.35-5.55); SEGMENTED NEUTROPHILS % (AUTO) 76.4 % (42-78); WHITE BLOOD COUNT 6.4 10^3/uL (4.0-10.5)
[2016-09-24 07:55] LABS: ANION GAP 6 (5-19); BLOOD UREA NITROGEN 9 mg/dL (7-20); CALCIUM 9.6 mg/dL (8.4-10.2); CARBON DIOXIDE 31 mmol/L (22-30); CHLORIDE 94 mmol/L (98-107); CREATININE RESULT 0.71 mg/dL (0.52-1.25); GLUCOSE 114 mg/dL (75-110); POTASSIUM 3.6 mmol/L (3.6-5.0); SODIUM 130.8 mmol/L (137-145)
[2016-09-24] MEDS: IPRATROPIUM/ALBUTEROL 0.5-2.5 MG/3 ML AMPUL NEB SCH (07:55)
--- NOTE | 2016-09-24 08:23 | PDOC PROGRESS REPORT ---
Subjective Progress Note for:: 09/24/16 Subjective:: Patient had alcohol withdrawal last night was extremely agitated Sedated and restrained This morning he is somewhat lethargic and confused Sodium is now 130 He is still in atrial fibrillation with controlled ventricular rate Physical Exam Vital Signs: Temp Pulse Resp BP Pulse Ox 97.5 F 88 20 135/87 H 98 09/24/16 07:17 09/24/16 07:55 09/24/16 07:55 09/24/16 07:17 09/24/16 07:55 Intake & Output 09/23/16 09/24/16 09/25/16 00:59 00:59 00:59 Intake Total 932 2846 372 Output Total 2055 800 50 Balance -1123 2046 322 Weight 92.6 kg 87.9 kg 91.9 kg General appearance: PRESENT: no acute distress, well-developed, well-nourished Head exam: PRESENT: atraumatic, normocephalic Eye exam: PRESENT: conjunctiva pink, EOMI, PERRLA. ABSENT: scleral icterus Ear exam: PRESENT: normal external ear exam Mouth exam: PRESENT: moist, tongue midline Neck exam: ABSENT: carotid bruit, JVD, lymphadenopathy, thyromegaly Respiratory exam: PRESENT: clear to auscultation reji. ABSENT: rales, rhonchi, wheezes Cardiovascular exam: PRESENT: RRR. ABSENT: diastolic murmur, rubs, systolic murmur Pulses: PRESENT: normal dorsalis pedis pul Vascular exam: PRESENT: normal capillary refill GI/Abdominal exam: PRESENT: normal bowel sounds, soft. ABSENT: distended, guarding, mass, organolmegaly, rebound, tenderness Rectal exam: PRESENT: deferred Extremities exam: PRESENT: full ROM. ABSENT: calf tenderness, clubbing, pedal edema Neurological exam: PRESENT: awake, CN II-XII grossly intact. ABSENT: motor sensory deficit Psychiatric exam: PRESENT: other - lethargic. ABSENT: homicidal ideation, suicidal ideation Skin exam: PRESENT: dry, intact, warm. ABSENT: cyanosis, rash Results Laboratory Results: 09/24/16 07:24 09/24/16 07:24 09/23/16 09/24/16 09/24/16 14:28 07:24 07:24 WBC 6.4 RBC 3.66 L Hgb 12.3 L Hct 36.5 L MCV 100 H MCH 33.5 H MCHC 33.6 RDW 15.0 H Plt Count 295 Seg Neutrophils % 76.4 Lymphocytes % 7.8 L Monocytes % 12.7 Eosinophils % 2.3 Basophils % 0.8 Absolute Neutrophils 4.9 Absolute Lymphocytes 0.5 Absolute Monocytes 0.8 Absolute Eosinophils 0.1 Absolute Basophils 0.1 Sodium 124.3 L 130.8 L Potassium 3.7 3.6 Chloride 90 L 94 L Carbon Dioxide 28 31 H Anion Gap 6 6 BUN 7 9 Creatinine 0.57 0.71 Est GFR ( Amer) > 60 > 60 Est GFR (Non-Af Amer) > 60 > 60 Glucose 116 H 114 H Calcium 9.1 9.6 09/22/16 03:05 Nasophary (Mrsa Only) MRSA Surveillance Culture - Final MRSA RECOVERED 09/22/16 09/22/16 09/22/16 01:00 01:00 08:18 Creatine Kinase 83 246 H CK-MB (CK-2) 1.46 Troponin I < 0.012 09/22/16 09/22/16 09/22/16 08:18 11:05 14:40 Creatine Kinase 294 H CK-MB (CK-2) 6.99 H 6.16 H Troponin I < 0.012 < 0.012 Impressions: Chest X-Ray 09/22/16 00:00 IMPRESSION: Mild left basilar atelectasis. Assessment & Plan - Diagnosis (1) Chronic atrial fibrillation Is this a current diagnosis for this admission?: YesPlan: Rate controlled continue present management (2) Alcohol abuse Is this a current diagnosis for this admission?: YesPlan: And alcohol withdrawal ;continue withdrawal protocol (3) Alcohol withdrawal Qualifiers: Complication of substance-induced condition: with delirium Qualified Code(s): F10.231 - Alcohol dependence with withdrawal delirium Is this a current diagnosis for this admission?: Yes (4) Hyponatremia Is this a current diagnosis for this admission?: YesPlan: Has resolved continue present management (5) Chronic anticoagulation Is this a current diagnosis for this admission?: YesPlan: With Eliquis - Time Time Spent with patient: We will keep the patient for another 48-72 hours until withdrawal is over- Time Spent with patient: 25-34 minutes
[2016-09-24] MEDS: DILTIAZEM HCL 120 MG CAP.SR.24H PO SCH (08:32)
[2016-09-24] MEDS: DOCUSATE SODIUM 100 MG CAPSULE PO SCH (08:32)
--- NOTE | 2016-09-24 09:26 | Physician Advisory Note ---
Physician Advisor ProgressNote .: Pursuant to the plan for [facility], I have reviewed the medical record for this patient. Physician Advisor Statement: Possible documentation opportunities if attending agrees: 1. Please list as Dx #1 in each note the Principal Dx for which pt required hospitalization. H&P states "hyponatremia" = Principal Dx. A chronic dx is not typically the Principal Dx. 2. ? - "suspected protein-calorie malnutrition [state mild, mod, or severe] with BMI 28.3, BUN 5, Cr 0.53, severe alcoholism, ____[?wt loss, ?appetite loss , ]" [if possible, give specifics on intake, wt loss, loss of SQ fat & muscle mass, diminished hand air sampling and monitoring strength, & clinical importance such as (A) nutritional assessment ordered, (B) modified diet or supplements ordered, (C) additional labs ordered, (D) prolonged wound healing time, (E) delayed infxn clearance] - - - Auditors are strict about the dx of malnutrition - has to be explicitly spelled out. Thanks for your help with documentation accuracy/specificity improvement! CK
[2016-09-24 14:33] VITALS: BP 115/82
--- NOTE | 2016-09-24 15:01 | PDOC DISCHARGE SUMMARY ---
General - Admit/Disc Date/PCP Admission Date/Primary Care Provider: 09/21/16 23:34 NUSRAT LEBLANC-Micha Discharge Date: 09/24/16 - Discharge Diagnosis (1) Chronic atrial fibrillation Is this a current diagnosis for this admission?: YesSummary: rate controlled Chads score 2 review previous Echo : LVEF normal Patient had been prescribed Pradaxa 150 mg bid in past We feel that patient is at high risk of intracranial bleeds, secondary to falls when he is intoxicated or withdrawing from alcohol Advised to D/C Pradaxa and take Ecotrin 81 mg daily (2) Alcohol abuse Is this a current diagnosis for this admission?: Yes (3) Alcohol withdrawal Is this a current diagnosis for this admission?: YesSummary: was on withdrawal protocole during stay (4) Hyponatremia Is this a current diagnosis for this admission?: YesSummary: Acute on chronic secondary to HCTZ and dilutional improved Na was 130 at discharge (5) Chronic anticoagulation Is this a current diagnosis for this admission?: YesSummary: d/c at discharge ASA 81 mg daily - Additional Information Resuscitation Status: Full Code Discharge Diet: As Tolerated Discharge Activity: Activity As Tolerated Home Medications: Aspirin [Ecotrin 81 mg EC Tablet] 81 mg PO DAILY #30 tab 09/24/16 Digoxin [Lanoxin 0.25 mg Tablet] 0.25 mg PO DAILY #30 tablet 09/24/16 Diltiazem HCl [Cardizem Cd 180 mg Capsule] 1 cap.sr PO Q12 #60 cap.sr 09/24/16 Thiamine HCl [Thiamine 100 mg Tablet] 100 mg PO DAILY #30 tablet 09/24/16 History of Present Illness History of Present Illness: HERBERT GOLDMAN is a 71 year old male with a past medical history of atrial fibrillation, COPD, alcohol dependence, tobacco dependence and recurrent hyponatremia. Who is well known to the hospital staff for alcoholism and complications including hyponatremia and alcohol withdrawal DTs and persistent refusal to attend alcohol rehabilitation. Who is brought into the emergency room by his son for complaints of diffuse body aches and begins to vomit. Patient himself is a poor historian and slow to verbalize from his baseline, labs obtained reveal critical hyponatremia. He started on hypertonic saline and referred referred to the hospitalist for admission. Patient son is at bedside verifies the patient drinks beer constantly throughout the day, discussion with by phone verifies his CODE STATUS to be full code. He receives Zofran, Ativan and 3% hypertonic saline and transferred to the ICU. Hospital Course Hospital Course: Patient was admitted with altered mental status and profound hyponatremia He responded to hypertonic saline and fluid restriction Na is 130 at discharge Patient was belligerent on 2 occasions during his stay and had to be restrained and sedated He refused to stay any longer He was found competent to make own decisions , ambulated with PT His son came to take him home We stongly suggested outpatient alcohol rehab Physical Exam Vital Signs: Temp Pulse Resp BP Pulse Ox 97.4 F 90 19 115/82 99 09/24/16 14:29 09/24/16 14:29 09/24/16 14:29 09/24/16 14:29 09/24/16 14:29 Intake & Output 09/23/16 09/24/16 09/25/16 00:59 00:59 00:59 Intake Total 932 2846 472 Output Total 2055 800 250 Balance -1123 2046 222 Weight 92.6 kg 87.9 kg 91.9 kg General appearance: PRESENT: no acute distress, well-developed, well-nourished Head exam: PRESENT: atraumatic, normocephalic, other - eccymoses left periorbital area Eye exam: PRESENT: conjunctiva pink, EOMI, PERRLA. ABSENT: scleral icterus Ear exam: PRESENT: normal external ear exam Mouth exam: PRESENT: moist, tongue midline Neck exam: ABSENT: carotid bruit, JVD, lymphadenopathy, thyromegaly Respiratory exam: PRESENT: clear to auscultation reji. ABSENT: rales, rhonchi, wheezes Cardiovascular exam: PRESENT: RRR. ABSENT: diastolic murmur, rubs, systolic murmur Pulses: PRESENT: normal dorsalis pedis pul Vascular exam: PRESENT: normal capillary refill GI/Abdominal exam: PRESENT: normal bowel sounds, soft. ABSENT: distended, guarding, mass, organolmegaly, rebound, tenderness Rectal exam: PRESENT: deferred Extremities exam: PRESENT: full ROM. ABSENT: calf tenderness, clubbing, pedal edema Neurological exam: PRESENT: alert, awake, oriented to person, oriented to place , oriented to time, oriented to situation, CN II-XII grossly intact. ABSENT: motor sensory deficit Psychiatric exam: ABSENT: homicidal ideation, suicidal ideation Skin exam: PRESENT: dry, intact, warm. ABSENT: cyanosis, rash Results Laboratory Results: 09/24/16 07:24 09/24/16 07:24 09/23/16 09/24/16 09/24/16 14:28 07:24 07:24 WBC 6.4 RBC 3.66 L Hgb 12.3 L Hct 36.5 L MCV 100 H MCH 33.5 H MCHC 33.6 RDW 15.0 H Plt Count 295 Seg Neutrophils % 76.4 Lymphocytes % 7.8 L Monocytes % 12.7 Eosinophils % 2.3 Basophils % 0.8 Absolute Neutrophils 4.9 Absolute Lymphocytes 0.5 Absolute Monocytes 0.8 Absolute Eosinophils 0.1 Absolute Basophils 0.1 Sodium 124.3 L 130.8 L Potassium 3.7 3.6 Chloride 90 L 94 L Carbon Dioxide 28 31 H Anion Gap 6 6 BUN 7 9 Creatinine 0.57 0.71 Est GFR ( Amer) > 60 > 60 Est GFR (Non-Af Amer) > 60 > 60 Glucose 116 H 114 H Calcium 9.1 9.6 09/22/16 03:05 Nasophary (Mrsa Only) MRSA Surveillance Culture - Final MRSA RECOVERED 09/22/16 09/22/16 09/22/16 01:00 01:00 08:18 Creatine Kinase 83 246 H CK-MB (CK-2) 1.46 Troponin I < 0.012 09/22/16 09/22/16 09/22/16 08:18 11:05 14:40 Creatine Kinase 294 H CK-MB (CK-2) 6.99 H 6.16 H Troponin I < 0.012 < 0.012 Impressions: Chest X-Ray 09/22/16 00:00 IMPRESSION: Mild left basilar atelectasis. Plan Discharge Plan: home follow up with PMD in 1 week Time Spent: Greater than 30 Minutes
== END 2016-09-24 14:43 | disposition home or self-care (01) | DRG 641 ==
LOC: ER 20:13 → EH 23:34 → UNDOADMIN 23:55 → EH 23:55 → ICU 09-22 02:39 → 3N 09-23 15:24
PROVIDERS: ADMIT Internal Medicine; ATTEND Internal Medicine
PROC: 3E0F73Z Introduction of Anti-inflammatory into Respiratory Tract, Via Natural or Artificial Opening (ICD-10-PCS; principal; 2016-09-22)
DX: E87.1 Hypo-osmolality and hyponatremia (principal); F10.221 Alcohol dependence with intoxication delirium; F10.231 Alcohol dependence with withdrawal delirium; T50.2X5A Adverse effect of carbonic-anhydrase inhibitors, benzothiadiazides and other diuretics, initial encounter; I48.2 Chronic atrial fibrillation; Y90.4 Blood alcohol level of 80-99 mg/100 ml; J44.9 Chronic obstructive pulmonary disease, unspecified; F17.210 Nicotine dependence, cigarettes, uncomplicated; K44.9 Diaphragmatic hernia without obstruction or gangrene; F32.9 Major depressive disorder, single episode, unspecified; F41.9 Anxiety disorder, unspecified; Z88.4 Allergy status to anesthetic agent; Z88.8 Allergy status to other drugs, medicaments and biological substances; Z79.01 Long term (current) use of anticoagulants; Z83.6 Family history of other diseases of the respiratory system; Z82.49 Family history of ischemic heart disease and other diseases of the circulatory system; Z85.46 Personal history of malignant neoplasm of prostate
CPT/HCPCS: 36415; 71010; 80048; 80053; 80307; 81001; 82550; 82553; 82570; 83735; 83935; 84100; 84300; 84484; 85025; 93005; 93010; 94640; 99285; G8978-GP; G8979-GP; J1644; J1940; J2060; J2405; J3360; J3480; J3490; J7060; J7620

== ENCOUNTER 2016-09-29 17:16 | Inpatient (IN) | payer MEDICARE, OTHER ==
--- NOTE | 2016-09-29 17:59 | ER Document Report ---
ED General - General Mode of Arrival: Medic Information source: Patient TRAVEL OUTSIDE OF THE [place] IN LAST 30 DAYS: No - HPI Patient complains to provider of: Depression Onset/Duration: Gradual, Worse Associated symptoms: Other - Decreased sleep and appetite <LAURENT BERRY - Last Filed: 09/29/16 23:26> <JINNY GAGNON - Last Filed: 09/29/16 23:38> - General Chief Complaint: Shortness Of Breath Stated Complaint: DEPRESSION Notes: Patient is a 71-year-old male presenting to the emergency department with concerns of depression due to his alcoholism. Patient states that he has had 12 beers today, and this is more than he usually drinks. Patient states that on a normal day he will drink 4-5 beers. Patient denies drinking any liquor or taking any drugs. Patient complains of being very tired because he has not been able to sleep or eat in 3 days. Patient states that his left him because of his alcoholism. Today is their 50th anniversary. Patient states that his will come home when he fixes himself. Patient lives alone in his home, and his lives with their daughter at this point in time. Patient states that he fell 2 weeks ago and broke his hip, but he has not followed up anywhere. Patient states that he has been to a detox program for 2 weeks in August, but he does not want to go back there. Patient mentioned that he takes a blood thinner, Pradaxa. (LAURENT BERRY) - Related Data Allergies/Adverse Reactions: diphenhydramine HCl [From Benadryl] Allergy (Verified 09/16/16 17:37) Hyperactivity lisinopril [Lisinopril] Adverse Reaction (Severe, Verified 09/16/16 17:37) angioedema Past Medical History - General Information source: Patient, [facility] Records - Social History Smoking Status: Current Every Day Smoker Chew tobacco use (# tins/day): Yes Frequency of alcohol use: Heavy Drug Abuse: None Family History: CAD, COPD Patient has suicidal ideation: No Patient has homicidal ideation: No - Past Medical History Cardiac Medical History: Reports: Hx Atrial Fibrillation Denies: Hx Congestive Heart Failure, Hx Coronary Artery Disease, Hx Heart Attack, Hx Hypercholesterolemia, Hx Hypertension, Hx Peripheral Vascular Disease , Hx Heart Murmur Pulmonary Medical History: Reports: Hx COPD Renal/ Medical History: Denies: Hx Benign Prostatic Hyperplasia, Hx End Stage Renal Disease, Hx Kidney Stones, Hx Peritoneal Dialysis Malignancy Medical History: Reports Hx Prostate Cancer GI Medical History: Reports: Hx Hiatal Hernia. Denies: Hx Crohn's Disease, Hx Gastroesophageal Reflux Disease, Hx Irritable Bowel, Hx Liver Failure, Hx Ulcer Psychiatric Medical History: Reports: Hx Anxiety, Hx Depression Traumatic Medical History: Reports: Hx Fractures - Hip - per patient Infectious Medical History: Reports: Hx C-Diff Past Surgical History: Reports: Hx Abdominal Surgery, Hx Herniorrhaphy, Hx Orthopedic Surgery - elbow, Hx Urinary Tract Surgery. Denies: Hx Appendectomy, Hx Bowel Surgery, Hx Cholecystectomy, Hx Colostomy, Hx Coronary Artery Bypass Graft, Hx Gastric Bypass Surgery, Hx Pacemaker, Hx Tonsillectomy - Immunizations Hx Diphtheria, Pertussis, Tetanus Vaccination: No Hx Pneumococcal Vaccination: 09/05/10 <LAURENT BERRY - Last Filed: 09/29/16 23:26> Review of Systems - Review of Systems Constitutional: No symptoms reported EENT: No symptoms reported Cardiovascular: No symptoms reported Respiratory: No symptoms reported Gastrointestinal: No symptoms reported Genitourinary: No symptoms reported Male Genitourinary: No symptoms reported Musculoskeletal: No symptoms reported Skin: No symptoms reported Hematologic/Lymphatic: No symptoms reported Neurological/Psychological: See HPI, Depression - No sleeping or eating x3 days. <LAURENT BERRY - Last Filed: 09/29/16 23:26> Physical Exam - General General appearance: Alert, Other - Patient is heavily intoxicated and smells of alcohol. - HEENT Head: Normocephalic Eyes: Other - Right infraorbital bruising Pupils: PERRL - Respiratory Respiratory status: No respiratory distress Chest status: Nontender Breath sounds: Normal Chest palpation: Normal - Cardiovascular Rhythm: Irregularly irregular Heart sounds: Normal auscultation Murmur: No - Abdominal Inspection: Normal - Soft Tenderness: Nontender - Extremities General upper extremity: Other - Multiple bruises over upper and lower extremities. General lower extremity: Edema - Trace edema bilaterally - Neurological Neuro grossly intact: Yes Cognition: Normal Lizy Coma Scale Eye Opening: Spontaneous Lizy Coma Scale Verbal: Oriented Lohman Coma Scale Motor: Obeys Commands Lizy Coma Scale Total: 15 Speech: Normal - Psychological Associated symptoms: Normal affect, Tearful - Skin Skin Temperature: Warm Skin Moisture: Dry Skin Color: Other - See eye exam and extremity exam <ARON BERRYSSICA - Last Filed: 09/29/16 23:26> Course - Laboratory Result Diagrams: 09/29/16 17:47 09/29/16 17:47 - Consults Dr. Edwards Time consulted: 23:14 - Attempted to consult Dr. Edwards about patient, but Dr. Edwards walked away stating he would call in a few minutes. <LAURENT BERRY - Last Filed: 09/29/16 23:26> - Laboratory Result Diagrams: 09/29/16 17:47 09/29/16 17:47 <JINNY GAGNON - Last Filed: 09/29/16 23:38> - Re-evaluation Re-evalutation: 09/29/16 23:37 I personally performed the services described in the documentation, reviewed and edited the documentation which was dictated to my scribe in my presence, and it accurately records my words and actions. Patient presents emergency department states she's been drinking heavier than usual is a chronic alcoholic and has been for years. States that his of 50 years left him because of drinking this today was her anniversary sees been drinking more he is depressed but vehemently denies being suicidal. Patient on examination is no neurological deficits no chest pain no shortness breath negative acute labs other than then elevated alcohol has low serum sodium which she has previously. Patient is not seizing are intact withdrawal. And given oral thiamine spoke with Dr. Edwards and will admit him to the hospital (JINNY GAGNON) - Vital Signs Vital signs: Temp Pulse Resp BP Pulse Ox 16 111/70 99 09/29/16 21:01 09/29/16 21:01 09/29/16 21:01 (JINNY GAGNON) - Laboratory Laboratory results interpreted by me: 09/29/16 09/29/16 09/29/16 17:47 17:47 17:47 RBC 3.31 L Hgb 10.9 L Hct 33.3 L MCV 101 H RDW 14.7 H Band Neutrophils % 1 L Sodium 121.5 L Chloride 84 L NT-Pro-B Natriuret Pep 1070 H Total Protein 5.6 L Acetaminophen < 10 L (JINNY GAGNON) Critical Care Note - Critical Care Note Total time excluding time spent on procedures (mins): 45 <JINNY GAGNON - Last Filed: 09/29/16 23:38> Discharge <LAURENT BERRY - Last Filed: 09/29/16 23:26> - Discharge Admitting Provider: Hospitalist Unit Admitted: Telemetry <JINNY GAGNON - Last Filed: 09/29/16 23:38> - Discharge Clinical Impression: Hyponatremia, Dehydration Elevated ETOH level Qualifiers: Blood alcohol level: level not specified Qualified Code(s): R78.0 - Finding of alcohol in blood Condition: Stable Disposition: ADMITTED INPATIENT Scribe Documentation - Scribe Written by Scribe:: Laurent Berry 09/29/2015 17:59 acting as scribe for :: Varun <LAURENT BERRY - Last Filed: 09/29/16 23:26>
[2016-09-29] MEDS ORDERED: NORMAL SALINE 1000 ML 1,000 ML IV PRN (18:18)
[2016-09-29 18:19] LABS: ALANINE AMINOTRANSFERASE 27 U/L (21-72); ALBUMIN 3.5 g/dL (3.5-5.0); ALCOHOL 252 mg/dL (NONE DETECTED); ALKALINE PHOSPHATASE 74 U/L (38-126); ANION GAP 13 (5-19); ASPARTATE AMINO TRANSFERASE 22 U/L (17-59); BILIRUBIN,TOTAL 0.2 mg/dL (0.2-1.3); BLOOD UREA NITROGEN 11 mg/dL (7-20); CALCIUM 8.5 mg/dL (8.4-10.2); CARBON DIOXIDE 25 mmol/L (22-30); CHLORIDE 84 mmol/L (98-107); CREATININE RESULT 0.82 mg/dL (0.52-1.25); GLUCOSE 75 mg/dL (75-110); POTASSIUM 4.5 mmol/L (3.6-5.0); SODIUM 121.5 mmol/L (137-145); TOTAL PROTEIN 5.6 g/dL (6.3-8.2)
[2016-09-29 18:29] LABS: HEMATOCRIT 33.3 % (37.9-51.0); HEMOGLOBIN 10.9 g/dL (13.5-17.0); HGB HCT DIFFERENCE -0.6; MEAN CORPUSCULAR HGB CONC 32.8 g/dL (32.0-36.0); MEAN CORPUSCULAR VOLUME 101 fl (80-97); RED BLOOD COUNT 3.31 10^6/uL (4.35-5.55); RED CELL DISTRIBUTION WIDTH 14.7 % (11.5-14.0); WHITE BLOOD COUNT 6.6 10^3/uL (4.0-10.5)
[2016-09-29 18:31] LABS: CREATINE KINASE MB 1.17 ng/mL (<4.55); TROPONIN I < 0.012 ng/mL
[2016-09-29 18:56] LABS: BAND NEUTROPHILS % (MANUAL) 1 % (3-5); BASOPHILS % (MANUAL) 1 % (0-2); EOSINOPHILS % (MANUAL) 1 % (0-6); LYMPHOCYTES % (MANUAL) 17 % (13-45); TOTAL CELLS COUNTED 100
[2016-09-29 18:59] LABS: ANISOCYTOSIS SLIGHT; OVALOCYTES SLIGHT; PLATELET CLUMPS PRESENT; SCHISTOCYTES 1+; TOXIC GRANULATION SLIGHT
[2016-09-29 20:22] LABS: URINE BARBITURATES SCREEN NEGATIVE; URINE METHADONE SCREEN NEGATIVE; URINE OPIATES LOW NEGATIVE; URINE PHENCYCLIDINE SCREEN NEGATIVE
--- NOTE | 2016-09-29 21:46 | EKG REPORT ---
SEVERITY:- OTHERWISE NORMAL ECG - SINUS BRADYCARDIA : Confirmed by: Flor Luis MD 29-Sep-2016 21:44:37
[2016-09-29 23:38] LABS: ADD ON TESTING BLD IN LAB ACKNOWLEDGE
[2016-09-29] MEDS ORDERED: THIAMINE HCL 100 MG TABLET PO ONE (23:38)
[2016-09-29 23:53] LABS: MAGNESIUM 1.7 mg/dL (1.6-2.3)
[2016-09-30] MEDS ORDERED: LORAZEPAM INJ 2 MG/1 ML VIAL IV PRN ×2 (03:03)
[2016-09-30] MEDS ORDERED: NICOTINE 21 MG/24 HR PATCH.TD24 TD PRN (03:03)
[2016-09-30] MEDS ORDERED: MAGNESIUM HYDROXIDE SUSP 30 ML UDCUP PO PRN (03:06)
[2016-09-30] MEDS ORDERED: ACETAMINOPHEN 325 MG TABLET PO PRN (03:06)
[2016-09-30] MEDS ORDERED: IPRATROPIUM/ALBUTEROL 0.5-2.5 MG/3 ML AMPUL NEB PRN (03:06)
[2016-09-30] MEDS ORDERED: LORAZEPAM 1 MG TABLET ONE (03:07)
[2016-09-30] MEDS ORDERED: NORMAL SALINE 1000 ML 1,000 ML IV PRN (03:12)
[2016-09-30] MEDS ORDERED: PROMETHAZINE HCL INJ 25 MG/1 ML VIAL IV PRN (03:15)
[2016-09-30] MEDS: LORAZEPAM 1 MG TABLET (TAPER DOSING) PO SCH ×2 (03:37→09:36)
--- NOTE | 2016-09-30 03:47 | PDOC H&P ---
History of Present Illness Admission Date/PCP: 09/30/16 00:21 Isis Woo NP Patient complains of: Depression History of Present Illness: HERBERT GOLDMAN is a 71 year old male with known chronic alcohol dependency, who presents to the emergency room for evaluation of above complaint. States he normally drinks only 4-5 beers a day. Had 2 sixpacks today. recently left him because of his alcohol drinking, and the is reportedly their 50th anniversary. Admits to being anxious, along with difficulty sleeping, with little by mouth intake in terms of solid food over the last 3-4 days. Repeatedly denies any thoughts of hurting himself or others. Also denies nausea vomiting, fever chills, chest or abdominal pain. Hospitalized on our service the through the of this month with final diagnoses including chronic atrial fibrillation, on Pradaxa for same, alcohol abuse and hyponatremia. Patient refused to stay any longer in the hospital. Was told to stop taking his Pradaxa and start on aspirin, due to concerns for falls. Has not followed up on this recommendation. States he was in a two-week detoxification program last August but does not want to go back there. States she fell 3 weeks ago and broke his hip but without any follow-up. States he has pain at the site, but apparently has been walking without much difficulty. Review of films from the of this month reveals little change compared to films from the fifth of this month, with no acute fracture or dislocation. 2.5 cm greater trochanter avulsion. Report is noted. Patient has been discussed with emergency room physician who evaluated the patient. . Laboratory results are listed in [facility] and are reviewed. X-ray summary results are listed below, with full report(s) reviewed. . EKG reviewed. Social history/personal habits: . Has children. Retired. Pack-a-day smoker. Alcohol use as noted above. Denies illicit drug use. Allergies/adverse reactions are listed in [facility] and are reviewed. Home medications are reviewed by discussion with patient and are to be reconciled by nursing staff in [facility]. Home medications initially autopopulated into [employer] may not accurately reflect patient's true medications, dosages, and/or frequencies. REVIEW OF SYSTEMS: Constitutional: No fever or chills. Eyes: Wears glasses. ENT: No swallowing problems or complaints. No hearing problems or complaints. Pulmonary: No current complaints. Cardiovascular: No current complaints, including chest pain. Gastrointestinal: No current complaints, including nausea or vomiting. Skin: No current complaints, including rashes. Hematologic: Easy bruising. Neurologic: No current complaints, including numbness or tingling. Musculoskeletal: No current complaints, including painful joints. Psychiatric: Anxiety depression; denies suicidal or homicidal ideation. Endocrine: No current complaints, including polyuria. Genitourinary: No current complaints, including dysuria. PHYSICAL EXAMINATION: 5 feet 11 inches tall. 88.5 kg. BMI 27.2 kg/m. Blood pressure 130/72. Respirations are 24 and unlabored. Pulse 74 and regular. 98% saturation on room air. Temperature is not recorded on the chart; skin feels normothermic. Somewhat overweight otherwise well-nourished well-developed though also somewhat chronically ill-appearing male who appears slightly depressed. Slightly tearful at times. Slight flat affect at times also. Skin is warm and dry. No grossly obvious evidence of rash in areas of skin examined. No subcutaneous nodules palpated. ENT: Hearing grossly normal to normal conversation. Tongue midline on protrusion pink and slightly tacky. Eyes: No scleral icterus. Pupils equal and reactive to light at 4 mm. [place] conjunctivae. No raccoon eyes. Neck is supple and nontender to gentle active range of motion and palpation. Midline trachea. No palpable thyroid nodule mass enlargement or tenderness. Lymphatic: No palpable cervical or clavicular nodes. Neck and lymphatic exams limited by patient body habitus. Psychiatric: Fair to reasonable insight into acute and chronic medical issues. Oriented to time location and why here. Lungs: Auscultation reveals clear and equal breath sounds bilaterally. No use of accessory respiratory muscles. Cardiovascular: Heart regular rate and rhythm, without gallop murmur or rub. No carotid or abdominal aortic bruits. No ankle or pedal edema. Faintly palpable dorsalis pedis pulses. Abdomen: soft, slightly, distended nontender with positive bowel sounds. Unable to adequately evaluate abdomen for masses or organomegaly due to distention. Extremities: Feet are warm and dry. No calf tenderness to compression. No grossly obvious visual evidence of calf swelling. Gentle manipulation of lower extremities fails to reveal any obvious evidence of injury or instability to knees hips or ankles; no left hip pain on manipulation.. Neurologic: Moves upper extremities grossly normally. Patellar reflexes absent. Absent Babinski. Light touch is intact at feet. Dorsiflexion and plantarflexion of feet 5 / 5 and symmetric. Past Medical History Cardiac Medical History: Reports: Atrial Fibrillation Denies: Congestive Heart Failure, Coronary Artery Disease, DVT, Myocardial Infarction, Hyperlipidema, Hypertension, Peripheral Vascular Disease, Pulmonary Embolism, Heart Murmur Pulmonary Medical History: Reports: Chronic Obstructive Pulmonary Disease (COPD) EENT Medical History: Reports: Eyes - Wears glasses Denies: Ears, Throat Neurological Medical History: Denies: Hemorrhagic CVA, Ischemic CVA, Seizures Endocrine Medical History: Denies: Diabetes Mellitus Type 1, Diabetes Mellitus Type 2, Hypothyroidism Renal/ Medical History: Denies: Chronic Kidney Disease, End Stage Renal Disease, Nephrolithiasis Malignancy Medical History: Reports: Skin Cancer - History of, Other - Prostate ; status post surgery, radiation, and hormone treatment. No longer takes medication for same. GI Medical History: Reports: Hiatal Hernia Denies: Cirrhosis, Crohn's Disease, Gastroesophageal Reflux Disease, Hepatitis, Peptic Ulcer Disease Musculoskeltal Medical History: Denies: Arthritis Skin Medical History: Denies: Eczema, Psoriasis Psychiatric Medical History: Reports: Alcohol Dependency, Depression, General Anxiety Disorder, Tobacco Dependency Denies: Substance Abuse Hematology: Reports: Other - Easy bruising Infectious Medical History: Reports: Clostridium Difficile Denies: Hepatitis B, Hepatitis C Past Surgical History Past Surgical History: Reports: Herniorrhaphy, Orthopedic Surgery - elbow Denies: Appendectomy, Cholecystectomy, Colostomy, Coronary Artery Bypass Graft, Gastric Bypass Surgery, Pacemaker, Tonsillectomy Social History Information Source: Patient, Emergency Med Personnel, [facility] Records Lives with: Alone Smoking Status: Current Every Day Smoker Frequency of Alcohol Use: Heavy Hx Recreational Drug Use: No Drugs: None Hx Prescription Drug Abuse: No - Advance Directive Resuscitation Status: Full Code Surrogate healthcare decision maker:: Family History Family History: CAD, COPD Parental Family History Reviewed: Yes Children Family History Reviewed: Yes Sibling(s) Family History Reviewed.: Yes Medication/Allergy Home Medications: Digoxin [Lanoxin 0.25 mg Tablet] 0.25 mg PO DAILY #30 tablet 09/24/16 Diltiazem HCl [Cardizem Cd 180 mg Capsule] 1 cap.sr PO Q12 #60 cap.sr 09/24/16 Thiamine HCl [Thiamine 100 mg Tablet] 100 mg PO DAILY #30 tablet 09/24/16 Dabigatran Etexilate Mesylate [Pradaxa 150 mg Capsule] 150 mg PO Q12 09/30/16 Allergies/Adverse Reactions: diphenhydramine HCl [From Benadryl] Allergy (Verified 09/16/16 17:37) Hyperactivity lisinopril [Lisinopril] Adverse Reaction (Severe, Verified 09/16/16 17:37) angioedema Physical Exam Vital Signs: Temp Pulse Resp BP Pulse Ox 15 123/78 97 09/30/16 02:00 09/30/16 01:03 09/30/16 02:00 Intake & Output 09/29/16 09/30/16 10/01/16 00:59 00:59 00:59 Weight 88.451 kg Results Impressions: Chest X-Ray 09/29/16 23:07 IMPRESSION: NO ACUTE RADIOGRAPHIC FINDING IN THE CHEST. Assessment & Plan - Diagnosis (1) Alcohol intoxication Qualifiers: Complication of substance-induced condition: with unspecified complication Qualified Code(s): F10.129 - Alcohol abuse with intoxication, unspecified Is this a current diagnosis for this admission?: YesPlan: Alcohol withdrawal protocol. I have strongly encouraged patient not to get out of bed without notifying staff , to avoid a fall with injury. Knee high SCDs for DVT prophylaxis, along with subcutaneous Lovenox, with Lovenox to be started on the , after he has been off his Pradaxa. Impression and plans were discussed with patient, . Time spent in evaluation and management of patient: 62 minutes. (2) Depression Qualifiers: Depression Type: unspecified Qualified Code(s): F32.9 - Major depressive disorder, single episode, unspecified Is this a current diagnosis for this admission?: YesPlan: Repeatedly denies suicidal or homicidal ideation. Psychiatric consult. Patient aware and agrees. (3) Alcohol dependency Qualifiers: Substance use status: with intoxication Complication of substance- induced condition: with unspecified complication Qualified Code(s): F10.229 - Alcohol dependence with intoxication, unspecified Is this a current diagnosis for this admission?: Yes (4) Anemia Qualifiers: Anemia type: unspecified type Qualified Code(s): D64.9 - Anemia, unspecified Is this a current diagnosis for this admission?: YesPlan: No need for transfusion at present time. Follow-up CBC. (5) Hyponatremia Is this a current diagnosis for this admission?: YesPlan: Likely secondary in large part to his alcohol intake. No need for hypertonic saline at present. Follow-up chemistry. (6) Chronic atrial fibrillation Is this a current diagnosis for this admission?: YesPlan: Hemodynamically stable. Follow clinically. (7) Chronic anticoagulation Is this a current diagnosis for this admission?: YesPlan: Due to concern for falls with his alcohol dependency, and following the recommendations from his recent hospital discharge, will stop Pradaxa and start aspirin. - Inpatient Certification Based on my medical assessment, after consideration of the patient's comorbidities, presenting symptoms, or acuity I expect that the services needed warrant INPATIENT care.: Yes I certify that my determination is in accordance with my understanding of Medicare's requirements for reasonable and necessary INPATIENT services [42 CFR 412.3e].: Yes Medical Necessity: Significant Comorbidiites Make Outpatient Treatment Too Risky , Need Close Monitoring Due to Risk of Patient Decompensation, Need For IV Fluids, Need For Continuous Telemetry Monitoring, Risk of Complication if Not Cared For in Hospital Post Hospital Care: D/C or Transfer Summary
[2016-09-30 07:12] LABS: HEMATOCRIT 34.3 % (37.9-51.0); HEMOGLOBIN 11.6 g/dL (13.5-17.0); HGB HCT DIFFERENCE 0.5; MEAN CORPUSCULAR HEMOGLOBIN 33.3 pg (27.0-33.4); MEAN CORPUSCULAR HGB CONC 33.9 g/dL (32.0-36.0); MEAN CORPUSCULAR VOLUME 98 fl (80-97); RED BLOOD COUNT 3.49 10^6/uL (4.35-5.55); RED CELL DISTRIBUTION WIDTH 14.8 % (11.5-14.0)
[2016-09-30 07:17] LABS: ANION GAP 7 (5-19); BLOOD UREA NITROGEN 11 mg/dL (7-20); CALCIUM 9.1 mg/dL (8.4-10.2); CARBON DIOXIDE 28 mmol/L (22-30); CHLORIDE 100 mmol/L (98-107); CREATININE RESULT 0.71 mg/dL (0.52-1.25); DIGOXIN 0.74 ng/mL (0.8-2.0); GLUCOSE 89 mg/dL (75-110); POTASSIUM 4.7 mmol/L (3.6-5.0); SODIUM 134.6 mmol/L (137-145)
[2016-09-30 07:29] LABS: BASOPHILS % (MANUAL) 1 % (0-2); EOSINOPHILS % (MANUAL) 3 % (0-6); HYPOCHROMASIA SLIGHT; LYMPHOCYTES % (MANUAL) 12 % (13-45); POLYCHROMASIA SLIGHT; TOTAL CELLS COUNTED 100
[2016-09-30 07:30] LABS: TOXIC GRANULATION SLIGHT
[2016-09-30] MEDS: THIAMINE HCL 100 MG TABLET PO SCH (09:38)
[2016-09-30] MEDS: FOLIC ACID 1 MG TABLET PO SCH (09:38)
[2016-09-30] MEDS: DOCUSATE SODIUM 100 MG CAPSULE PO SCH ×2 (09:38→18:39)
[2016-09-30] MEDS: MULTIVITAMIN TABLET PO SCH (09:39)
[2016-09-30] MEDS ORDERED: DILTIAZEM HCL 180 MG CAPSULE.CR PO SCH (10:00)
[2016-09-30] MEDS: DIGOXIN 0.25 MG TABLET PO SCH (13:22)
[2016-09-30] MEDS ORDERED: ONDANSETRON 4 MG TAB.RAPDIS PO PRN (14:33)
[2016-09-30] MEDS: LORAZEPAM 1 MG TABLET PO SCH ×2 (15:16→21:46)
[2016-10-01] MEDS: LORAZEPAM INJ 2 MG/1 ML VIAL IV PRN ×2 (04:27→08:24)
[2016-10-01] MEDS: LORAZEPAM 1 MG TABLET PO SCH ×4 (06:04→23:33)
[2016-10-01] MEDS: DILTIAZEM HCL 180 MG CAPSULE.CR PO SCH ×2 (06:05→17:21)
[2016-10-01] MEDS ORDERED: LORAZEPAM INJ 2 MG/1 ML VIAL IM ONE (10:10)
[2016-10-01] MEDS: ASPIRIN 325 MG TABLET PO SCH (11:50)
[2016-10-01] MEDS: DIGOXIN 0.25 MG TABLET PO SCH (11:51)
[2016-10-01] MEDS: ENOXAPARIN SODIUM INJ 40 MG/0.4 ML DISP.SYRIN SUBCUT SCH (11:52)
[2016-10-01] MEDS: FOLIC ACID 1 MG TABLET PO SCH (11:52)
[2016-10-01] MEDS: MULTIVITAMIN TABLET PO SCH (11:52)
[2016-10-01] MEDS: THIAMINE HCL 100 MG TABLET PO SCH (11:52)
[2016-10-01] MEDS: DOCUSATE SODIUM 100 MG CAPSULE PO SCH ×2 (11:52→17:21)
[2016-10-01] MEDS ORDERED: LORAZEPAM 1 MG TABLET PO SCH (12:00)
--- NOTE | 2016-10-01 13:56 | PDOC PROGRESS REPORT ---
Subjective Progress Note for:: 09/30/16 Subjective:: The patient was seen earlier on rounds. The patient states that he wants to stop drinking alcohol. The patient denies suicidal or homicidal ideation. I explained to the patient it would be a moot point for him to withdrawal completely from alcohol if his plan was to go home and resume the same habits. Asked the patient what plan he had in place to maintain sobriety and the patient does not have one. The patient refuses inpatient rehabilitation and is not interested in any outpatient programs either. The patient states that he may possibly do AA. The patient denies any nausea, vomiting, diarrhea, shortness of breath, dizziness, chest pain, heart palpitations, fevers, or chills. The patient has remained afebrile. Blood pressures have been in a good range. When prompted the patient voices no other concerns at this time. Review of systems: The rest of the review of systems is negative. Physical Exam Vital Signs: Temp Pulse Resp BP Pulse Ox 97.6 F 89 19 125/96 H 99 10/01/16 11:40 10/01/16 11:40 10/01/16 11:40 10/01/16 11:40 10/01/16 11:40 Intake & Output 09/29/16 09/30/16 10/01/16 23:59 23:59 23:59 Intake Total 1147 204 Output Total 453 100 Balance 694 104 Weight 91.8 kg General appearance: PRESENT: no acute distress, well-developed, well-nourished Head exam: PRESENT: atraumatic, normocephalic Eye exam: PRESENT: conjunctiva pink, EOMI, PERRLA. ABSENT: scleral icterus Ear exam: PRESENT: normal external ear exam Mouth exam: PRESENT: moist, tongue midline Neck exam: ABSENT: carotid bruit, JVD, lymphadenopathy, thyromegaly Respiratory exam: PRESENT: clear to auscultation reji. ABSENT: rales, rhonchi, wheezes Cardiovascular exam: PRESENT: RRR. ABSENT: diastolic murmur, rubs, systolic murmur Pulses: PRESENT: normal dorsalis pedis pul Vascular exam: PRESENT: normal capillary refill GI/Abdominal exam: PRESENT: normal bowel sounds, soft. ABSENT: distended, guarding, mass, organolmegaly, rebound, tenderness Rectal exam: PRESENT: deferred Extremities exam: PRESENT: full ROM. ABSENT: calf tenderness, clubbing, pedal edema Neurological exam: PRESENT: alert, awake - Slow to arouse, oriented to person, oriented to place, oriented to time, oriented to situation, CN II-XII grossly intact. ABSENT: motor sensory deficit Psychiatric exam: PRESENT: depressed, flat affect. ABSENT: homicidal ideation, suicidal ideation Skin exam: PRESENT: dry, intact, warm. ABSENT: cyanosis, rash Results Laboratory Results: 09/30/16 06:45 09/30/16 06:45 Impressions: Chest X-Ray 09/29/16 23:07 IMPRESSION: NO ACUTE RADIOGRAPHIC FINDING IN THE CHEST. Assessment & Plan - Diagnosis (1) Alcohol intoxication Qualifiers: Complication of substance-induced condition: with unspecified complication Qualified Code(s): F10.129 - Alcohol abuse with intoxication, unspecified Is this a current diagnosis for this admission?: Yes (2) Dehydration Is this a current diagnosis for this admission?: Yes (3) Depression Qualifiers: Depression Type: unspecified Qualified Code(s): F32.9 - Major depressive disorder, single episode, unspecified Is this a current diagnosis for this admission?: Yes (4) Hyponatremia Is this a current diagnosis for this admission?: Yes (5) Anemia Qualifiers: Anemia type: unspecified type Qualified Code(s): D64.9 - Anemia, unspecified Is this a current diagnosis for this admission?: Yes (6) Tobacco dependency Is this a current diagnosis for this admission?: Yes (7) Acute renal failure Qualifiers: Acute renal failure type: unspecified Qualified Code(s): N17.9 - Acute kidney failure, unspecified Is this a current diagnosis for this admission?: Yes (8) Alcohol abuse Is this a current diagnosis for this admission?: Yes (9) Chronic atrial fibrillation Is this a current diagnosis for this admission?: Yes (10) Chronic anticoagulation Is this a current diagnosis for this admission?: Yes - Time Time Spent with patient: on this visit including assessment, plan, physical examination, family meeting, and specialty collaboration, and patient education is 35 minutes. Time Spent with patient: 35 or more minutes Medications reviewed and adjusted accordingly: Yes Anticipated discharge: Home Within: within 48 hours Disposition: The patient is a full code. Pending patient's symptomatology and diagnostic findings will reevaluate in the a.m.
--- NOTE | 2016-10-01 14:17 | PDOC PROGRESS REPORT ---
Subjective Progress Note for:: 10/01/16 Subjective:: The patient is awake but delirious. The patient is in full withdrawal. The patient is unaware of person, place, time, or situation. Physical Exam Vital Signs: Temp Pulse Resp BP Pulse Ox 97.6 F 89 19 125/96 H 99 10/01/16 11:40 10/01/16 11:40 10/01/16 11:40 10/01/16 11:40 10/01/16 11:40 Intake & Output 09/29/16 09/30/16 10/01/16 23:59 23:59 23:59 Intake Total 1147 204 Output Total 453 100 Balance 694 104 Weight 91.8 kg General appearance: PRESENT: no acute distress, disheveled, well-developed, well -nourished Head exam: PRESENT: atraumatic, normocephalic Eye exam: PRESENT: conjunctiva pink, EOMI, PERRLA. ABSENT: scleral icterus Ear exam: PRESENT: normal external ear exam Mouth exam: PRESENT: moist, tongue midline Neck exam: ABSENT: carotid bruit, JVD, lymphadenopathy, thyromegaly Respiratory exam: PRESENT: clear to auscultation reji. ABSENT: rales, rhonchi, wheezes Cardiovascular exam: PRESENT: bradycardia. ABSENT: diastolic murmur, rubs, systolic murmur Pulses: PRESENT: normal dorsalis pedis pul Vascular exam: PRESENT: normal capillary refill GI/Abdominal exam: PRESENT: normal bowel sounds, soft. ABSENT: distended, guarding, mass, organolmegaly, rebound, tenderness Rectal exam: PRESENT: deferred Extremities exam: PRESENT: full ROM. ABSENT: calf tenderness, clubbing, pedal edema Neurological exam: PRESENT: alert, altered, oriented to person. ABSENT: motor sensory deficit Psychiatric exam: PRESENT: agitated, unusual affect. ABSENT: homicidal ideation , suicidal ideation Focused psych exam: PRESENT: delusional Skin exam: PRESENT: dry, intact, warm. ABSENT: cyanosis, rash Results Laboratory Results: 09/30/16 06:45 09/30/16 06:45 Impressions: Chest X-Ray 09/29/16 23:07 IMPRESSION: NO ACUTE RADIOGRAPHIC FINDING IN THE CHEST. Assessment & Plan - Diagnosis (1) DTs (delirium tremens) Is this a current diagnosis for this admission?: YesPlan: Will continue scheduled Ativan as well as when necessary IV. Patient does have a sitter at bedside. The patient is not oriented at all. (2) Alcohol intoxication Qualifiers: Complication of substance-induced condition: with unspecified complication Qualified Code(s): F10.129 - Alcohol abuse with intoxication, unspecified Is this a current diagnosis for this admission?: YesPlan: This is cleared (3) Alcohol dependency Qualifiers: Substance use status: in withdrawal Complication of substance-induced condition: with delirium Qualified Code(s): F10.231 - Alcohol dependence with withdrawal delirium Is this a current diagnosis for this admission?: YesPlan: The patient has no plan for outpatient therapy. Therefore most likely this detox is a moot point as the patient has no plans for rehabilitation. (4) Depression Qualifiers: Depression Type: unspecified Qualified Code(s): F32.9 - Major depressive disorder, single episode, unspecified Is this a current diagnosis for this admission?: YesPlan: Continue the patient's home SSRIs (5) Hyponatremia Is this a current diagnosis for this admission?: YesPlan: This corrected with volume (6) Anemia Qualifiers: Anemia type: unspecified type Qualified Code(s): D64.9 - Anemia, unspecified Is this a current diagnosis for this admission?: Yes (7) Tobacco dependency Is this a current diagnosis for this admission?: Yes (8) Acute renal failure Qualifiers: Acute renal failure type: unspecified Qualified Code(s): N17.9 - Acute kidney failure, unspecified Is this a current diagnosis for this admission?: Yes (9) Chronic atrial fibrillation Is this a current diagnosis for this admission?: YesPlan: Will continue home medications. (10) Chronic anticoagulation Is this a current diagnosis for this admission?: YesPlan: The patient has been instructed to discontinue this given his risk for bleeding falls alcoholism and so forth however the patient has continued to take his home dosage - Time Time Spent with patient: on this visit including assessment, plan, physical examination, family meeting, and specialty collaboration, and patient education is 35 minutes. Time Spent with patient: 35 or more minutes Medications reviewed and adjusted accordingly: Yes Anticipated discharge: Home Within: within 72 hours Disposition: The patient is a full code. Pending patient's symptomatology and diagnostic findings will reevaluate in the a.m.
--- NOTE | 2016-10-01 16:30 | PSYCHOLOGICAL NOTE ---
Psych Note - Psych Note Psych Note: Patient is a 71-year-old male presenting to the emergency department with concerns of depression due to his alcoholism. Patient states that he has had 12 beers today, and this is more than he usually drinks. Patient states that on a normal day he will drink 4-5 beers. Patient denies drinking any liquor or taking any drugs. Patient states that he won't do it again. When asked about his drinking the patient started to cry and stated "I'm afraid that I will hurt myself." Clinician notes this is the first time the patient has discussed possible consequences of his drinking. Patient disclosed that is was his anniversary yesterday; patient and spouse are currently . Patient states that he has spoken to his and will speak with her again today; he will not respond to questions about any alternate possiblities other than his will be coming home. Patient is alert and orientated to person, place, time, and circumstance. Mood is irritable with flat affect. Patient denies suicidal and homicidal ideation. Patient denies auditory visual hallucinations; no delusions are noted. Thought process is organized and linear however, illogical towards his drinking and relationship status. Conversational speech is halting, guarded. Patient made good eye contact. Intellectual abilities appear to be within normal range. Attention, and concentration are poor. Insight, judgment, and impulse control are poor. 311 (F32.9) Unspecified Depressive Disorder Patient's presenting symptoms are similar to that of a depressive disorder and cause clinically significant distress in all domains of his life At this time, in this setting (ED) there is not enough information to make a more specific diagnosis (eg due to a medical illness vs major depressive disorder) 291.9 (F10.99) Unspecified Alcohol-Related Disorder Patient reports daily ETOH and states it is causes clinically significant probs in all domains of his life At this time, in this setting (ED) there is not enough information to make a more specific diagnosis. Impression/ Plan: Patient is well known in this department and to this clinician. He has refused services for alcohol abuse in the past and for the most recent ED visit did not follow through with recommendations. Patient denies suicidal homicidal ideation. Patient is psychiatrically cleared for discharge; patient needs alcohol abuse services that he has refused and not follow recommendations. Dr. Martinez was consulted on this patient; attending physician is in agreement with recommendations and disposition.
[2016-10-02] MEDS: LORAZEPAM INJ 2 MG/1 ML VIAL IV PRN ×2 (04:18→22:48)
[2016-10-02] MEDS: DILTIAZEM HCL 180 MG CAPSULE.CR PO SCH ×2 (06:52→17:52)
[2016-10-02] MEDS: LORAZEPAM 1 MG TABLET PO SCH ×3 (06:52→17:52)
[2016-10-02] MEDS: THIAMINE HCL 100 MG TABLET PO SCH (09:55)
[2016-10-02] MEDS: DIGOXIN 0.25 MG TABLET PO SCH (09:55)
[2016-10-02] MEDS: FOLIC ACID 1 MG TABLET PO SCH (09:55)
[2016-10-02] MEDS: MULTIVITAMIN TABLET PO SCH (09:56)
[2016-10-02] MEDS: DOCUSATE SODIUM 100 MG CAPSULE PO SCH ×2 (09:56→17:52)
[2016-10-02] MEDS: ASPIRIN 325 MG TABLET PO SCH (09:56)
[2016-10-02] MEDS: ENOXAPARIN SODIUM INJ 40 MG/0.4 ML DISP.SYRIN SUBCUT SCH (09:56)
--- NOTE | 2016-10-02 15:24 | PDOC PROGRESS REPORT ---
Subjective Progress Note for:: 10/02/16 Subjective:: The patient is awake but delirious. The patient is in full withdrawal. The patient is unaware of person, place, time, or situation. Son is present the bedside and active in patient's care. Physical Exam Vital Signs: Temp Pulse Resp BP Pulse Ox 97.2 F 85 14 138/87 H 99 10/02/16 07:16 10/02/16 07:16 10/02/16 07:16 10/02/16 07:16 10/02/16 07:16 Intake & Output 09/30/16 10/01/16 10/02/16 23:59 23:59 23:59 Intake Total 480 Balance 480 General appearance: PRESENT: no acute distress, disheveled, well-developed, well -nourished Head exam: PRESENT: atraumatic, normocephalic Eye exam: PRESENT: conjunctiva pink, EOMI, PERRLA. ABSENT: scleral icterus Ear exam: PRESENT: normal external ear exam Mouth exam: PRESENT: moist, tongue midline Neck exam: ABSENT: carotid bruit, JVD, lymphadenopathy, thyromegaly Respiratory exam: PRESENT: clear to auscultation reji. ABSENT: rales, rhonchi, wheezes Cardiovascular exam: PRESENT: bradycardia. ABSENT: diastolic murmur, rubs, systolic murmur Pulses: PRESENT: normal dorsalis pedis pul Vascular exam: PRESENT: normal capillary refill GI/Abdominal exam: PRESENT: normal bowel sounds, soft. ABSENT: distended, guarding, mass, organolmegaly, rebound, tenderness Rectal exam: PRESENT: deferred Extremities exam: PRESENT: full ROM. ABSENT: calf tenderness, clubbing, pedal edema Neurological exam: PRESENT: alert, altered, oriented to person. ABSENT: motor sensory deficit Psychiatric exam: PRESENT: agitated, unusual affect. ABSENT: homicidal ideation , suicidal ideation Focused psych exam: PRESENT: delusional Skin exam: PRESENT: dry, intact, warm. ABSENT: cyanosis, rash Results Laboratory Results: Labs- Last Values WBC 6.0 10^3/uL (4.0-10.5) 09/30/16 06:45 RBC 3.49 10^6/uL (4.35-5.55) L 09/30/16 06:45 Hgb 11.6 g/dL (13.5-17.0) L 09/30/16 06:45 Hct 34.3 % (37.9-51.0) L 09/30/16 06:45 MCV 98 fl (80-97) H 09/30/16 06:45 MCH 33.3 pg (27.0-33.4) 09/30/16 06:45 MCHC 33.9 g/dL (32.0-36.0) 09/30/16 06:45 RDW 14.8 % (11.5-14.0) H 09/30/16 06:45 Plt Count 308 10^3/uL (150-450) 09/30/16 06:45 Total Counted 100 09/30/16 06:45 Seg Neutrophils % Not Reportable 09/30/16 06:45 Seg Neuts % (Manual) 68 % (42-78) 09/30/16 06:45 Band Neutrophils % 1 % (3-5) L 09/29/16 17:47 Lymphocytes % Not Reportable 09/30/16 06:45 Lymphocytes % (Manual) 12 % (13-45) L 09/30/16 06:45 Atypical Lymphs % 4 % (0) 09/29/16 17:47 Monocytes % Not Reportable 09/30/16 06:45 Monocytes % (Manual) 15 % (3-13) H 09/30/16 06:45 Eosinophils % Not Reportable 09/30/16 06:45 Eosinophils % (Manual) 3 % (0-6) 09/30/16 06:45 Basophils % Not Reportable 09/30/16 06:45 Basophils % (Manual) 1 % (0-2) 09/30/16 06:45 Metamyelocytes % 1 % (0) H 09/30/16 06:45 Absolute Neutrophils Not Reportable 09/30/16 06:45 Abs Neuts (Manual) 4.1 10^3/uL (1.7-8.2) 09/30/16 06:45 Absolute Lymphocytes Not Reportable 09/30/16 06:45 Abs Lymphs (Manual) 0.7 10^3/uL (0.5-4.7) 09/30/16 06:45 Absolute Monocytes Not Reportable 09/30/16 06:45 Abs Monocytes (Manual) 0.9 10^3/uL (0.1-1.4) 09/30/16 06:45 Absolute Eosinophils Not Reportable 09/30/16 06:45 Absolute Eos (Manual) 0.2 10^3/uL (0.0-0.6) 09/30/16 06:45 Absolute Basophils Not Reportable 09/30/16 06:45 Abs Basophils (Manual) 0.1 10^3/uL (0.0-0.2) 09/30/16 06:45 Toxic Granulation SLIGHT 09/30/16 06:45 Clumped Platelets PRESENT 09/29/16 17:47 Platelet Comment ADEQUATE 09/30/16 06:45 Polychromasia SLIGHT 09/30/16 06:45 Hypochromasia SLIGHT 09/30/16 06:45 Anisocytosis SLIGHT 09/29/16 17:47 Macrocytosis 1+ 09/29/16 17:47 Ovalocytes SLIGHT 09/29/16 17:47 Schistocytes 1+ 09/29/16 17:47 Sodium 134.6 mmol/L (137-145) L 09/30/16 06:45 Potassium 4.7 mmol/L (3.6-5.0) 09/30/16 06:45 Chloride 100 mmol/L (98-107) 09/30/16 06:45 Carbon Dioxide 28 mmol/L (22-30) 09/30/16 06:45 Anion Gap 7 (5-19) 09/30/16 06:45 BUN 11 mg/dL (7-20) 09/30/16 06:45 Creatinine 0.71 mg/dL (0.52-1.25) 09/30/16 06:45 Est GFR ( Amer) > 60 (>60) 09/30/16 06:45 Est GFR (Non-Af Amer) > 60 (>60) 09/30/16 06:45 Glucose 89 mg/dL (75-110) 09/30/16 06:45 Calcium 9.1 mg/dL (8.4-10.2) 09/30/16 06:45 Magnesium 1.7 mg/dL (1.6-2.3) 09/29/16 17:47 Total Bilirubin 0.2 mg/dL (0.2-1.3) 09/29/16 17:47 Direct Bilirubin 0.0 mg/dL (0.0-0.3) 09/29/16 17:47 AST 22 U/L (17-59) 09/29/16 17:47 ALT 27 U/L (21-72) 09/29/16 17:47 Alkaline Phosphatase 74 U/L (38-126) 09/29/16 17:47 CK-MB (CK-2) 1.17 ng/mL (<4.55) 09/29/16 17:47 Troponin I < 0.012 ng/mL 09/29/16 17:47 NT-Pro-B Natriuret Pep 1070 pg/mL (5-900) H 09/29/16 17:47 Total Protein 5.6 g/dL (6.3-8.2) L 09/29/16 17:47 Albumin 3.5 g/dL (3.5-5.0) 09/29/16 17:47 TSH 1.25 uIU/mL (0.47-4.68) 09/29/16 17:47 Digoxin 0.74 ng/mL (0.8-2.0) L 09/30/16 06:45 Urine Opiates Screen NEGATIVE 09/29/16 19:54 Urine Methadone Screen NEGATIVE 09/29/16 19:54 Acetaminophen < 10 ug/mL (10-30) L 09/29/16 17:47 Ur Barbiturates Screen NEGATIVE 09/29/16 19:54 Ur Phencyclidine Scrn NEGATIVE 09/29/16 19:54 Ur Amphetamines Screen NEGATIVE 09/29/16 19:54 U Benzodiazepines Scrn NEGATIVE 09/29/16 19:54 Urine Cocaine Screen NEGATIVE 09/29/16 19:54 U Marijuana (THC) Screen NEGATIVE 09/29/16 19:54 Serum Alcohol 252 mg/dL (NONE DETECTED) 09/29/16 17:47 Impressions: Chest X-Ray 09/29/16 23:07 IMPRESSION: NO ACUTE RADIOGRAPHIC FINDING IN THE CHEST. Assessment & Plan - Diagnosis (1) DTs (delirium tremens) Is this a current diagnosis for this admission?: YesPlan: Will continue scheduled Ativan as well as when necessary IV. Patient does have a sitter. The patient is not oriented at all. (2) Alcohol intoxication Qualifiers: Complication of substance-induced condition: with unspecified complication Qualified Code(s): F10.129 - Alcohol abuse with intoxication, unspecified Is this a current diagnosis for this admission?: YesPlan: This is cleared (3) Alcohol dependency Qualifiers: Substance use status: in withdrawal Complication of substance-induced condition: with delirium Qualified Code(s): F10.231 - Alcohol dependence with withdrawal delirium Is this a current diagnosis for this admission?: YesPlan: The patient has no plan for outpatient therapy. Therefore most likely this detox is a moot point as the patient has no plans for rehabilitation. (4) Depression Qualifiers: Depression Type: unspecified Qualified Code(s): F32.9 - Major depressive disorder, single episode, unspecified Is this a current diagnosis for this admission?: YesPlan: Continue the patient's home SSRIs (5) Hyponatremia Is this a current diagnosis for this admission?: YesPlan: This corrected with volume (6) Anemia Qualifiers: Anemia type: unspecified type Qualified Code(s): D64.9 - Anemia, unspecified Is this a current diagnosis for this admission?: Yes (7) Tobacco dependency Is this a current diagnosis for this admission?: Yes (8) Acute renal failure Qualifiers: Acute renal failure type: unspecified Qualified Code(s): N17.9 - Acute kidney failure, unspecified Is this a current diagnosis for this admission?: Yes (9) Chronic atrial fibrillation Is this a current diagnosis for this admission?: YesPlan: Will continue home medications. (10) Chronic anticoagulation Is this a current diagnosis for this admission?: YesPlan: The patient has been instructed to discontinue this given his risk for bleeding falls alcoholism and so forth however the patient has continued to take his home dosage - Time Time Spent with patient: on this visit including assessment, plan, physical examination, and patient education is 25 minutes. Time Spent with patient: 25-34 minutes Medications reviewed and adjusted accordingly: Yes Anticipated discharge: Home Within: within 24 hours
[2016-10-03] MEDS: LORAZEPAM 1 MG TABLET PO SCH ×2 (01:02→04:59)
[2016-10-03] MEDS: LORAZEPAM INJ 2 MG/1 ML VIAL IV PRN (03:59)
[2016-10-03] MEDS: DILTIAZEM HCL 180 MG CAPSULE.CR PO SCH (04:59)
[2016-10-03 07:37] LABS: ANION GAP 9 (5-19); BLOOD UREA NITROGEN 12 mg/dL (7-20); CARBON DIOXIDE 27 mmol/L (22-30); CHLORIDE 97 mmol/L (98-107); CREATININE RESULT 0.75 mg/dL (0.52-1.25); DIGOXIN 1.23 ng/mL (0.8-2.0); GLUCOSE 100 mg/dL (75-110); MAGNESIUM 1.6 mg/dL (1.6-2.3); POTASSIUM 3.9 mmol/L (3.6-5.0); SODIUM 133.1 mmol/L (137-145)
[2016-10-03 08:50] VITALS: BP 130/83
[2016-10-03] MEDS: ENOXAPARIN SODIUM INJ 40 MG/0.4 ML DISP.SYRIN SUBCUT SCH (08:59)
[2016-10-03] MEDS: DIGOXIN 0.25 MG TABLET PO SCH (09:00)
[2016-10-03] MEDS: MULTIVITAMIN TABLET PO SCH (09:00)
[2016-10-03] MEDS: DOCUSATE SODIUM 100 MG CAPSULE PO SCH (09:01)
[2016-10-03] MEDS: ASPIRIN 325 MG TABLET PO SCH (09:01)
[2016-10-03] MEDS: THIAMINE HCL 100 MG TABLET PO SCH (09:02)
[2016-10-03] MEDS: FOLIC ACID 1 MG TABLET PO SCH (09:02)
--- NOTE | 2016-10-03 17:17 | PDOC DISCHARGE SUMMARY ---
General - Admit/Disc Date/PCP Admission Date/Primary Care Provider: 10/02/16 07:05 Isis Woo Discharge Date: 10/03/16 - Discharge Diagnosis (1) DTs (delirium tremens) Is this a current diagnosis for this admission?: Yes (2) Alcohol intoxication Is this a current diagnosis for this admission?: Yes (3) Alcohol dependency Is this a current diagnosis for this admission?: Yes (4) Depression Is this a current diagnosis for this admission?: Yes (5) Hyponatremia Is this a current diagnosis for this admission?: Yes (6) Anemia Is this a current diagnosis for this admission?: Yes (7) Tobacco dependency Is this a current diagnosis for this admission?: Yes (8) Acute renal failure Is this a current diagnosis for this admission?: Yes (9) Chronic atrial fibrillation Is this a current diagnosis for this admission?: Yes (10) Chronic anticoagulation Is this a current diagnosis for this admission?: Yes - Additional Information Resuscitation Status: Full Code Discharge Diet: As Tolerated Discharge Activity: Activity As Tolerated Home Medications: Digoxin [Lanoxin 0.25 mg Tablet] 0.25 mg PO DAILY 09/30/16 Diltiazem HCl [Cardizem Cd] 80 mg PO BID 09/30/16 Thiamine HCl [Thiamine 100 mg Tablet] 100 mg PO DAILY 09/30/16 Folic Acid [Folvite 1 mg Tablet] 1 mg PO DAILY #30 tablet 10/03/16 History of Present Illness Patient complains of: Depression and being drunk History of Present Illness: HERBERT GOLDMAN is a 71 year old male with known chronic alcohol dependency, who presents to the emergency room for evaluation of above complaint. States he normally drinks only 4-5 beers a day. Had 2 sixpacks today. recently left him because of his alcohol drinking, and the is reportedly their 50th anniversary. Admits to being anxious, along with difficulty sleeping, with little by mouth intake in terms of solid food over the last 3-4 days. Repeatedly denies any thoughts of hurting himself or others. Also denies nausea vomiting, fever chills, chest or abdominal pain. Hospitalized on our service the through the of this month with final diagnoses including chronic atrial fibrillation, on Pradaxa for same, alcohol abuse and hyponatremia. Patient refused to stay any longer in the hospital. Was told to stop taking his Pradaxa and start on aspirin, due to concerns for falls. Has not followed up on this recommendation. States he was in a two-week detoxification program last August but does not want to go back there. States she fell 3 weeks ago and broke his hip but without any follow-up. States he has pain at the site, but apparently has been walking without much difficulty. Review of films from the 12th of this month reveals little change compared to films from the fifth of this month, with no acute fracture or dislocation. 2.5 cm greater trochanter avulsion. Hospital Course Hospital Course: The patient was admitted to team was telemetry unit. The patient was aggressively hydrated and the patient's dehydration did improve. Patient's sodium gradually improved. The patient was started on when necessary and scheduled benzodiazepines. Patient electrolytes were repleted. Despite these Moustapha the patient did going to alcohol withdrawal consistent of delirium. Afterwards the patient has refused any form of rehabilitation and states that he may possibly do Alcoholics Anonymous Jackelin Jewell that this will be a repeated course in the near future. Physical Exam Vital Signs: Temp Pulse Resp BP Pulse Ox 97.3 F 83 18 130/83 H 97 10/03/16 11:04 10/03/16 11:04 10/03/16 11:04 10/03/16 11:04 10/03/16 11:04 Intake & Output 10/01/16 10/02/16 10/03/16 23:59 23:59 23:59 Intake Total 720 980 Balance 720 980 Weight 91.8 kg General appearance: PRESENT: no acute distress, cooperative, well-developed, well-nourished Head exam: PRESENT: atraumatic, normocephalic Eye exam: PRESENT: conjunctiva pink, EOMI, PERRLA. ABSENT: scleral icterus Ear exam: PRESENT: normal external ear exam Mouth exam: PRESENT: moist, tongue midline Neck exam: ABSENT: carotid bruit, JVD, lymphadenopathy, thyromegaly Respiratory exam: PRESENT: clear to auscultation reji, symmetrical, unlabored. ABSENT: rales, rhonchi, tachypnea, wheezes Cardiovascular exam: PRESENT: RRR. ABSENT: diastolic murmur, rubs, systolic murmur Pulses: PRESENT: normal dorsalis pedis pul Vascular exam: PRESENT: normal capillary refill GI/Abdominal exam: PRESENT: normal bowel sounds, soft. ABSENT: distended, guarding, mass, organolmegaly, rebound, tenderness Rectal exam: PRESENT: deferred Extremities exam: PRESENT: full ROM. ABSENT: calf tenderness, clubbing, pedal edema Neurological exam: PRESENT: alert, awake, oriented to person, oriented to place , oriented to time, oriented to situation, CN II-XII grossly intact. ABSENT: motor sensory deficit Psychiatric exam: PRESENT: appropriate affect, depressed, flat affect, normal mood, other - Denies intent to self-harm or harm others. The patient is a little delayed but overall appropriate.. ABSENT: homicidal ideation, suicidal ideation Skin exam: PRESENT: dry, intact, warm. ABSENT: cyanosis, rash Results Laboratory Results: 10/03/16 07:01 10/03/16 07:01 Sodium 133.1 L Potassium 3.9 Chloride 97 L Carbon Dioxide 27 Anion Gap 9 BUN 12 Creatinine 0.75 Est GFR ( Amer) > 60 Est GFR (Non-Af Amer) > 60 Glucose 100 Calcium 10.0 Magnesium 1.6 Impressions: Chest X-Ray 09/29/16 23:07 IMPRESSION: NO ACUTE RADIOGRAPHIC FINDING IN THE CHEST. Qualifiers PATEINT BEING DISCHARGED WITH ANY OF THE FOLLOWING DIAGNOSIS?: No Plan Discharge Plan: The patient is a follow with primary care provider within one week for hospital follow-up. Patient is advised to seek out means of rehabilitation. Time Spent: Less than 30 Minutes
== END 2016-10-03 11:24 | disposition home or self-care (01) | DRG 897 ==
LOC: ER 17:16 → UNDOADMIN 09-30 00:21 → EH 09-30 00:21 → INTOOBSV 09-30 03:06 → EH 09-30 03:06 → 4N 09-30 04:18 → OBSVTOIN 10-02 07:05
PROVIDERS: ADMIT Family Medicine; ATTEND Family Medicine
PROC: 3E0F73Z Introduction of Anti-inflammatory into Respiratory Tract, Via Natural or Artificial Opening (ICD-10-PCS; principal; 2016-09-30)
DX: F10.231 Alcohol dependence with withdrawal delirium (principal); E87.1 Hypo-osmolality and hyponatremia; N17.9 Acute kidney failure, unspecified; Y90.8 Blood alcohol level of 240 mg/100 ml or more; F10.221 Alcohol dependence with intoxication delirium; F32.9 Major depressive disorder, single episode, unspecified; D64.9 Anemia, unspecified; I48.2 Chronic atrial fibrillation; E86.0 Dehydration; F41.1 Generalized anxiety disorder; M24.859 Other specific joint derangements of unspecified hip, not elsewhere classified; F17.210 Nicotine dependence, cigarettes, uncomplicated; J44.9 Chronic obstructive pulmonary disease, unspecified; Z85.46 Personal history of malignant neoplasm of prostate; Z79.01 Long term (current) use of anticoagulants; Z85.828 Personal history of other malignant neoplasm of skin; Z60.2 Problems related to living alone; Z83.6 Family history of other diseases of the respiratory system; Z82.49 Family history of ischemic heart disease and other diseases of the circulatory system
CPT/HCPCS: 36415; 71010; 80048; 80053; 80162; 80307; 82553; 83735; 83880; 84443; 84484; 85025; 93005; 93010; 96360; 99291; G0378; J1650; J2060; J3490; J7030; S0119

== ENCOUNTER 2016-12-29 14:47 | Emergency (ER) | payer MEDICARE, OTHER ==
[2016-12-29] MEDS ORDERED: BACITRACIN ZINC OINTMENT 15 GM TP ONE (15:29)
[2016-12-29] MEDS ORDERED: TETANUS/DIPHTHERIA TOX-ADULT 0.5 ML SYR (>=7YO) IM ONE (15:29)
[2016-12-29 15:47] LABS: ABSOLUTE EOSINOPHILS # (AUTO) 0.1 10^3/uL (0.0-0.6); ABSOLUTE LYMPHOCYTES (AUTO) 1.3 10^3/uL (0.5-4.7); ABSOLUTE MONOCYTES (AUTO) 0.4 10^3/uL (0.1-1.4); ABSOLUTE NEUT (AUTO) 3.9 10^3/uL (1.7-8.2); BASOPHILS % (AUTO) 0.8 % (0-2); HEMATOCRIT 35.3 % (37.9-51.0); HEMOGLOBIN 12.3 g/dL (13.5-17.0); HGB HCT DIFFERENCE 1.6; LYMPHOCYTES % (AUTO) 22.5 % (13-45); MEAN CORPUSCULAR HEMOGLOBIN 31.8 pg (27.0-33.4); MEAN CORPUSCULAR HGB CONC 34.7 g/dL (32.0-36.0); MEAN CORPUSCULAR VOLUME 92 fl (80-97); MONOCYTES % (AUTO) 6.9 % (3-13); RED BLOOD COUNT 3.85 10^6/uL (4.35-5.55); RED CELL DISTRIBUTION WIDTH 14.2 % (11.5-14.0); SEGMENTED NEUTROPHILS % (AUTO) 67.8 % (42-78); WHITE BLOOD COUNT 5.7 10^3/uL (4.0-10.5)
[2016-12-29 15:56] LABS: PROTHROMBIN TIME 13.8 SEC (11.4-15.4)
[2016-12-29 16:08] LABS: ALANINE AMINOTRANSFERASE 26 U/L (21-72); ALBUMIN 3.1 g/dL (3.5-5.0); ALCOHOL 262 mg/dL (NONE DETECTED); ALKALINE PHOSPHATASE 74 U/L (38-126); ANION GAP 13 (5-19); ASPARTATE AMINO TRANSFERASE 22 U/L (17-59); BILIRUBIN,DIRECT 0.2 mg/dL (0.0-0.4); BILIRUBIN,TOTAL 0.3 mg/dL (0.2-1.3); BLOOD UREA NITROGEN 7 mg/dL (7-20); CALCIUM 8.6 mg/dL (8.4-10.2); CARBON DIOXIDE 23 mmol/L (22-30); CHLORIDE 98 mmol/L (98-107); CREATININE RESULT 0.72 mg/dL (0.52-1.25); GLUCOSE 79 mg/dL (75-110); POTASSIUM 3.7 mmol/L (3.6-5.0); SODIUM 133.9 mmol/L (137-145); TOTAL PROTEIN 5.4 g/dL (6.3-8.2)
[2016-12-29 16:10] LABS: DIGOXIN < 0.40 ng/mL (0.8-2.0)
[2016-12-29] MEDS ORDERED: NORMAL SALINE 1000 ML 1,000 ML IV ONE ×2 (16:17→18:15)
[2016-12-29] MEDS ORDERED: POTASSI CL 20 MEQ/NS 1L 1,000 ML IV ONE (18:14)
--- NOTE | 2016-12-29 19:26 | ER Document Report ---
ED General - General Stated Complaint: FALL/HEAD INJURY Time seen by provider: 15:24 Mode of Arrival: Stretcher Information source: Patient, Emergency Med Personnel TRAVEL OUTSIDE OF THE [place] IN LAST 30 DAYS: No - HPI Notes: 71-year-old male with history of chronic alcohol abuse, atrial fibrillation, COPD presented to the emergency department with report that he was at a local hotel visiting a friend in stating he was going to go swimming and drank a large quantity of alcohol and then fell over striking his head and right arm. EMS came and found him to intoxicated to refuse transport. Patient states she's been compliant with his medications. Patient denies any chest pain, abdominal pain, focal numbness or weakness. He states he lost his balance from being intoxicated and fell over. No loss of consciousness. No neck pain or back pain. Patient does report mild headache and facial pain. The patient is on Prozac so for chronic atrial fibrillation. He is unaware of when his last tetanus shot was. Vital signs in route blood pressure 99/61. Patient does report minimal recent cough productive of slightly yellowish phlegm. - Related Data Allergies/Adverse Reactions: diphenhydramine HCl [From Benadryl] Allergy (Verified 09/16/16 17:37) Hyperactivity lisinopril [Lisinopril] Adverse Reaction (Severe, Verified 09/16/16 17:37) angioedema Past Medical History - Social History Smoking Status: Current Every Day Smoker Cigarette use (# per day): Yes Frequency of alcohol use: Heavy Drug Abuse: None Lives with: Family Family History: CAD, COPD - Past Medical History Cardiac Medical History: Reports: Hx Atrial Fibrillation Denies: Hx Congestive Heart Failure, Hx Coronary Artery Disease, Hx DVT, Hx Heart Attack, Hx Hypercholesterolemia, Hx Hypertension, Hx Peripheral Vascular Disease, Hx Pulmonary Embolism, Hx Heart Murmur Pulmonary Medical History: Reports: Hx COPD Neurological Medical History: Denies: Hx Seizures Endocrine Medical History: Denies: Hx Diabetes Mellitus Type 1, Hx Diabetes Mellitus Type 2, Hx Hypothyroidism Renal/ Medical History: Denies: Hx Benign Prostatic Hyperplasia, Hx End Stage Renal Disease, Hx Kidney Stones, Hx Peritoneal Dialysis Malignancy Medical History: Reports Hx Prostate Cancer, Reports Hx Skin Cancer - History of GI Medical History: Reports: Hx Hiatal Hernia. Denies: Hx Cirrhosis, Hx Crohn' s Disease, Hx Gastroesophageal Reflux Disease, Hx Hepatitis, Hx Irritable Bowel , Hx Liver Failure, Hx Ulcer Musculoskeltal Medical History: Denies Hx Arthritis Skin Medical History: Denies Hx Eczema, Denies Hx Psoriasis Psychiatric Medical History: Reports: Hx Anxiety, Hx Depression Traumatic Medical History: Reports: Hx Fractures - Hip - per patient Infectious Medical History: Reports: Hx C-Diff. Denies: Hx Hepatitis Past Surgical History: Reports: Hx Abdominal Surgery, Hx Herniorrhaphy, Hx Orthopedic Surgery - elbow, Hx Urinary Tract Surgery. Denies: Hx Appendectomy, Hx Bowel Surgery, Hx Cholecystectomy, Hx Colostomy, Hx Coronary Artery Bypass Graft, Hx Gastric Bypass Surgery, Hx Pacemaker, Hx Tonsillectomy - Immunizations Hx Diphtheria, Pertussis, Tetanus Vaccination: No Hx Pneumococcal Vaccination: 09/05/10 Review of Systems - Review of Systems Notes: REVIEW OF SYSTEMS: CONSTITUTIONAL : Denies fever, chills, or sweats. Denies recent illness. EENT: Denies eye, ear, throat, or mouth pain or symptoms. Denies nasal or sinus congestion or discharge. Denies throat, tongue, or mouth swelling or difficulty swallowing. CARDIOVASCULAR: Denies chest pain. Denies palpitations or racing or irregular heart beat. Denies ankle edema. RESPIRATORY: Denies shortness of breath, difficulty breathing, or wheezing. GASTROINTESTINAL: Denies abdominal pain or distention. Denies nausea, vomiting , or diarrhea. Denies blood in vomitus, stools, or per rectum. Denies black, tarry stools. Denies constipation. GENITOURINARY: Denies difficulty urinating, painful urination, burning, frequency, blood in urine, or discharge. MUSCULOSKELETAL: Denies back or neck pain or stiffness. Denies joint pain or swelling. SKIN: Patient has facial abrasion and skin tears on the right upper extremity. He denies any bony tenderness there. HEMATOLOGIC : Denies easy bruising or bleeding. LYMPHATIC: Denies swollen, enlarged glands. NEUROLOGICAL: Denies confusion or altered mental status. Denies passing out or loss of consciousness. Denies dizziness or lightheadedness. Mild headache. Denies weakness or paralysis or loss of use of either side. Patient reports that when he is intoxicated he sometimes has trouble walking and talking. Denies sensory loss, numbness, or tingling. Denies seizures. PSYCHIATRIC: Denies anxiety or stress. Denies depression, suicidal ideation, or homicidal ideation. ALL OTHER SYSTEMS REVIEWED AND NEGATIVE. Dictation was performed using [employer] voice recognition software . Physical Exam - Vital signs Vitals: Temp Pulse Resp BP Pulse Ox 97.7 F 51 L 16 87/52 L 96 12/29/16 15:00 12/29/16 15:00 12/29/16 15:00 12/29/16 15:00 12/29/16 15:00 - Notes Notes: PHYSICAL EXAMINATION: GENERAL: Well-appearing, well-nourished and in no acute distress. HEAD: Right facial contusion and abrasion. No bony deformity or crepitance. EYES: Pupils equal round and reactive to light, extraocular movements intact, sclera anicteric, conjunctiva are normal. ENT: Nares patent, oropharynx clear without exudates. Moist mucous membranes. NECK: Normal range of motion, supple without lymphadenopathy LUNGS: Breath sounds clear to auscultation bilaterally and equal. No wheezes rales or rhonchi. HEART: Irregular rhythm chest with history of atrial fibrillation heart rate 62 at rest. ABDOMEN: Soft, nontender, nondistended abdomen. No guarding, no rebound. No masses appreciated. Musculoskeletal: Normal range of motion, no pitting or edema. No cyanosis. NEUROLOGICAL: Cranial nerves grossly intact. Normal sensory, motor exams. Initially somewhat slurred speech with obvious smell of alcohol. Later on exam , the patient had normal speech and a normal gait exam. PSYCH: Normal mood, normal affect. SKIN: Patient has skin tear on the right upper extremity. No gross bony deformity or crepitance. Good range of motion. Course - Re-evaluation Re-evalutation: 12/29/16 19:31 Patient was given 2 L normal saline. On repeat exams blood pressure was stable. He was ambulatory without complaint and had stable vital signs. He was in atrial fibrillation which is chronic. There is no evidence for DVTs, acute intracranial injury, renal insufficiency, anemia, pneumonia. No obvious pneumothorax. When patient was up ambulating, his heart rate increased up to 90 and he had no complaint. 12/29/16 19:32 Patient was counseled about his use of alcohol. The patient was to arrange for a cab to take him home. He stated he would not drive. 12/29/16 19:34 - Vital Signs Vital signs: Temp Pulse Resp BP Pulse Ox 97.7 F 51 L 16 87/52 L 96 12/29/16 15:00 12/29/16 15:00 12/29/16 15:00 12/29/16 15:00 12/29/16 15:00 - Laboratory Result Diagrams: 12/29/16 15:30 12/29/16 15:30 Laboratory results interpreted by me: 12/29/16 12/29/16 15:30 15:30 RBC 3.85 L Hgb 12.3 L Hct 35.3 L RDW 14.2 H Sodium 133.9 L Total Protein 5.4 L Albumin 3.1 L Digoxin < 0.40 L - Diagnostic Test Radiology reviewed: Image reviewed, Reports reviewed - EKG Interpretation by Me Additional EKG results interpreted by me: 12/29/16 19:32 EKG as interpreted by me showed atrial fibrillation with ventricular response rate of 48. There was no gross evidence for acute ND or ischemia noted. There was no change from previous EKG from 09/29/16 when the patient had a heart rate of 49. On the bedside monitor the patient had a controlled ventricular response rate in the 50s to 70s at rest. When the patient was up ambulating his heart rate went up into the 80s to 90s. 12/29/16 19:33 Discharge - Discharge Clinical Impression: Abrasion, Skin tear, Bronchitis Head injury Qualifiers: Encounter type: initial encounter Qualified Code(s): S09.90XA - Unspecified injury of head, initial encounter Alcohol intoxication Qualifiers: Complication of substance-induced condition: with unspecified complication Qualified Code(s): F10.129 - Alcohol abuse with intoxication, unspecified Accidental fall Qualifiers: Encounter type: initial encounter Qualified Code(s): W19.XXXA - Unspecified fall, initial encounter Condition: Stable Disposition: HOME, SELF-CARE Instructions: Acute Alcohol Intoxication ([facility]), Head Injury, Child ([facility]), Abrasions ([facility]), Skin Tear ([facility]), Tetanus Immunization Given ([facility]), Bronchitis ( [facility]) Additional Instructions: Apply antibiotic ointment to the wounds. Cut back on alcohol use. Stand up slowly. Prescriptions: Amoxicillin 500 mg PO TID #24 capsule
[2016-12-29 19:31] VITALS: BP 109/64
[2016-12-29] MEDS ORDERED: AMOXICILLIN TRIHYDRATE 500 MG CAPSULE PO ONE (19:39)
--- NOTE | 2016-12-29 21:16 | EKG REPORT ---
SEVERITY:- ABNORMAL ECG - ATRIAL FIBRILLATION : Confirmed by: Manuela Pollock 29-Dec-2016 21:15:30
== END 2016-12-29 19:44 | disposition home or self-care (01) ==
LOC: ER 14:47
DX: S09.90XA Unspecified injury of head, initial encounter (principal); S40.811A Abrasion of right upper arm, initial encounter; S00.81XA Abrasion of other part of head, initial encounter; J40 Bronchitis, not specified as acute or chronic; F10.129 Alcohol abuse with intoxication, unspecified; W18.30XA Fall on same level, unspecified, initial encounter; Y92.59 Other trade areas as the place of occurrence of the external cause; I48.91 Unspecified atrial fibrillation; J44.9 Chronic obstructive pulmonary disease, unspecified; F17.210 Nicotine dependence, cigarettes, uncomplicated; Z85.46 Personal history of malignant neoplasm of prostate; Z85.828 Personal history of other malignant neoplasm of skin; Z23 Encounter for immunization
CPT/HCPCS: 93005; 99285; 96360; 90471; 36415; 80307; 80162; 85025; 85610; 80053; 71010; 70450; 70486; 90714; 93010; A9270; J7030; J3490

== ENCOUNTER 2017-03-13 10:06 | Emergency (ER) | payer MEDICARE, OTHER ==
--- NOTE | 2017-03-13 10:35 | ER Document Report ---
ED Respiratory Problem - General Chief Complaint: Cough Stated Complaint: COUGHING UP BLOOD Time Seen by Provider: 03/13/17 10:21 Mode of Arrival: Ambulatory Information source: Patient Notes: This 72-year-old man with a history of COPD (1 pack per day), atrial fibrillation ([place]) who presents to the emergency room with significant sinus congestion and sinus discharge for the past 2 weeks. The patient states that the congestion is worse in the morning as he gets up. He says he has been also coughing up a lot of phlegm. Patient reports that for the past 4 days he has had blood in the sputum which he thinks is from the lungs and not the sinus tract. Patient states he uses his Symbicort inhaler and exercises regularly. He states he feels like he has not been having any significant wheezing. He denies any frequent bleeding or blood in his stool. TRAVEL OUTSIDE OF THE [place] IN LAST 30 DAYS: No - HPI Patient complains to provider of: COPD Onset: Last week Duration: Continuous Initiating Event: No: Allergy, Aspiration/Choking, Exertion, Exposure to chemicals, Exposure to dust, Exposure to fumes, Exposure to mold, Exposure to smoke, Out of meds, Sports/exercise, URI, Other Quality of pain: No pain Severity: None Pain Level: Denies Context: Hx COPD Cough: Productive Sputum amount: Small Sputum color: Red (blood) Sputum consistency: Thin At home treatment: Bronchodilators Associated symptoms: Congestion, Sinus pain/pressure Similar symptoms previously: No Recently seen / treated by doctor: No - Related Data Allergies/Adverse Reactions: diphenhydramine HCl [From Benadryl] Allergy (Verified 09/16/16 17:37) Hyperactivity lisinopril [Lisinopril] Adverse Reaction (Severe, Verified 09/16/16 17:37) angioedema Past Medical History - General Information source: Patient - Social History Smoking Status: Current Every Day Smoker Cigarette use (# per day): Yes - 1 pack per day Chew tobacco use (# tins/day): No Smoking Education Provided: No Frequency of alcohol use: None Drug Abuse: None Lives with: Alone Family History: CAD, COPD Patient has suicidal ideation: No Patient has homicidal ideation: No - Past Medical History Cardiac Medical History: Reports: Hx Atrial Fibrillation Denies: Hx Congestive Heart Failure, Hx Coronary Artery Disease, Hx DVT, Hx Heart Attack, Hx Hypercholesterolemia, Hx Hypertension, Hx Peripheral Vascular Disease, Hx Pulmonary Embolism, Hx Heart Murmur Pulmonary Medical History: Reports: Hx COPD Neurological Medical History: Denies: Hx Seizures Endocrine Medical History: Denies: Hx Diabetes Mellitus Type 1, Hx Diabetes Mellitus Type 2, Hx Hypothyroidism Renal/ Medical History: Denies: Hx Benign Prostatic Hyperplasia, Hx End Stage Renal Disease, Hx Kidney Stones, Hx Peritoneal Dialysis Malignancy Medical History: Reports Hx Prostate Cancer, Reports Hx Skin Cancer - History of GI Medical History: Reports: Hx Hiatal Hernia. Denies: Hx Cirrhosis, Hx Crohn' s Disease, Hx Gastroesophageal Reflux Disease, Hx Hepatitis, Hx Irritable Bowel , Hx Liver Failure, Hx Ulcer Musculoskeltal Medical History: Denies Hx Arthritis Skin Medical History: Denies Hx Eczema, Denies Hx Psoriasis Psychiatric Medical History: Reports: Hx Anxiety, Hx Depression Traumatic Medical History: Reports: Hx Fractures - Hip - per patient Infectious Medical History: Reports: Hx C-Diff. Denies: Hx Hepatitis Past Surgical History: Reports: Hx Abdominal Surgery, Hx Herniorrhaphy, Hx Orthopedic Surgery - elbow, Hx Urinary Tract Surgery. Denies: Hx Appendectomy, Hx Bowel Surgery, Hx Cholecystectomy, Hx Colostomy, Hx Coronary Artery Bypass Graft, Hx Gastric Bypass Surgery, Hx Pacemaker, Hx Tonsillectomy - Immunizations Hx Diphtheria, Pertussis, Tetanus Vaccination: No Hx Pneumococcal Vaccination: 09/05/10 Review of Systems - Review of Systems Constitutional: denies: Chills, Fever EENT: See HPI Cardiovascular: No symptoms reported Respiratory: See HPI Gastrointestinal: No symptoms reported Genitourinary: No symptoms reported Male Genitourinary: No symptoms reported Musculoskeletal: No symptoms reported Skin: No symptoms reported Hematologic/Lymphatic: No symptoms reported Neurological/Psychological: No symptoms reported Physical Exam - Vital signs Vitals: Temp Pulse Resp BP Pulse Ox 98.5 F 105 H 22 H 139/90 H 98 03/13/17 10:11 03/13/17 10:11 03/13/17 10:11 03/13/17 10:11 03/13/17 10:11 Notes: Physical exam: GENERAL: 72-year-old man, alert and oriented 3, no acute distress. He is sitting up in the room and appears quite good HEAD: Atraumatic, normocephalic. EYES: Pupils equal round and reactive to light, extraocular movements intact, sclera anicteric, conjunctiva are normal. ENT: Patient does have a lot of sinus congestion. Moist mucous membranes. NECK: Normal range of motion, supple without lymphadenopathy or JVD. LUNGS: Breath sounds clear to auscultation bilaterally and equal. No wheezes rales or rhonchi. HEART: Regular rate and rhythm without murmurs, rubs or gallops. ABDOMEN: Soft, normoactive bowel sounds. No tenderness to palpation. No guarding, no rebound. No masses appreciated. EXTREMITIES: Normal range of motion, no pitting or edema. No clubbing or cyanosis. NEUROLOGICAL: Cranial nerves II through XII grossly intact. Normal speech, normal gait. PSYCH: Normal mood, normal affect. SKIN: Warm, Dry, normal turgor, no rashes or lesions noted. Course - Re-evaluation Re-evalutation: 03/13/17 12:28 Note: The patient is been sitting up in the chair in the room and appears quite comfortable. He has had no hemoptysis well-being in the ER. After review of the x-ray I thought there might be an infiltrate on the right side so I ordered a CTA of the chest. CTA suggests possibility of an early infiltrate on the left. Patient's lung exams are good. I am not convinced the bloody sputum is from the chest or from the sinus tract. The CT does not show any pulmonary emboli or any obvious mass. He is having a lot of mucus in both. I will treat him with some oral antibiotics and I will refer him to an internal medicine doctor as well as a senior functional analyst. I have advised him to come back for worsening bleeding. - Vital Signs Vital signs: Temp Pulse Resp BP Pulse Ox 97.8 F 79 18 124/98 H 96 03/13/17 12:34 03/13/17 12:34 03/13/17 12:34 03/13/17 12:34 03/13/17 12:34 - Laboratory Result Diagrams: 03/13/17 10:40 03/13/17 10:40 Laboratory results interpreted by me: 03/13/17 03/13/17 10:40 10:40 RDW 15.9 H Seg Neutrophils % 83.7 H Lymphocytes % 7.8 L Sodium 136.2 L ALT 16 L - Diagnostic Test Radiology reviewed: Image reviewed, Reports reviewed - Chest x-ray shows no infiltrates. CTA of the chest shows possible early infiltrate at the left base. - EKG Interpretation by Me Rate: Normal Rhythm: NSR - EKG shows normal sinus rhythm with a ventricular rate of 91, no acute ST-T wave changes Discharge - Discharge Clinical Impression: Bronchiectasis, COPD, Sinusitis Condition: Stable Disposition: HOME, SELF-CARE Additional Instructions: Please note: Many disease processes do evolve over time and the ER visit offers only a brief assessment. This is why it is important that you: 1. Follow up with her doctor for ongoing symptoms within the next week. 2. Return to the ER at once if your symptoms worsen, are not improving or if you are unable to get into your physician's office. When you call your physician's office, tell them that you were evaluated in the ER and the ER physician recommended that you are reevaluated in the office in the time span mentioned above. If given a copy of any lab tests or radiology reports, bring them with you when you see your physician. Specific signs to look out for: Shortness of breath, worsening blood in sputum or any concerns or getting worse. Prescriptions: Levofloxacin 500 mg PO DAILY #7 tablet Referrals: RODOLFO BLUNT MD [ACTIVE STAFF] - Follow up as needed (This is the number of a good internal medicine doctor. Call the office for the next available appointment.) CALE FREEMAN MD [ACTIVE STAFF] - Follow up as needed (This is the number of a lung specialist : I would like you to call for the next available appointment. )
--- NOTE | 2017-03-13 10:51 | RADIOLOGY REPORT (SQ) ---
EXAM DESCRIPTION: CHEST PA/LAT COMPLETED DATE/TIME: 03/13/2017 10:39 am REASON FOR STUDY: productive blood tinged cough COMPARISON: December 2016 EXAM PARAMETERS: NUMBER OF VIEWS: two views TECHNIQUE: Digital Frontal and Lateral radiographic views of the chest acquired. RADIATION DOSE: NA LIMITATIONS: none FINDINGS: LUNGS AND PLEURA: No opacities, masses or pneumothorax. No pleural effusion. MEDIASTINUM AND HILAR STRUCTURES: No masses or contour abnormalities. HEART AND VASCULAR STRUCTURES: The configuration of the heart and mediastinal structures is unchanged . BONES: Degenerative changes are identified in the thoracic spine HARDWARE: None in the chest. OTHER: No other significant finding. IMPRESSION: No significant interval change. No acute findings. Other findings as noted above TECHNICAL DOCUMENTATION: JOB ID: [id number] [employer]- All Rights Reserved
[2017-03-13 10:54] LABS: ABSOLUTE EOSINOPHILS # (AUTO) 0.1 10^3/uL (0.0-0.6); ABSOLUTE LYMPHOCYTES (AUTO) 0.6 10^3/uL (0.5-4.7); ABSOLUTE MONOCYTES (AUTO) 0.5 10^3/uL (0.1-1.4); ABSOLUTE NEUT (AUTO) 6.6 10^3/uL (1.7-8.2); BASOPHILS % (AUTO) 0.3 % (0-2); EOSINOPHILS % (AUTO) 1.2 % (0-6); HEMATOCRIT 44.7 % (37.9-51.0); HEMOGLOBIN 15.1 g/dL (13.5-17.0); HGB HCT DIFFERENCE 0.6; LYMPHOCYTES % (AUTO) 7.8 % (13-45); MEAN CORPUSCULAR HEMOGLOBIN 32.3 pg (27.0-33.4); MEAN CORPUSCULAR HGB CONC 33.9 g/dL (32.0-36.0); MEAN CORPUSCULAR VOLUME 96 fl (80-97); RED BLOOD COUNT 4.68 10^6/uL (4.35-5.55); RED CELL DISTRIBUTION WIDTH 15.9 % (11.5-14.0); SEGMENTED NEUTROPHILS % (AUTO) 83.7 % (42-78); WHITE BLOOD COUNT 7.9 10^3/uL (4.0-10.5)
[2017-03-13 10:59] LABS: PROTHROMBIN TIME 13.3 SEC (11.4-15.4)
[2017-03-13 11:15] LABS: ALANINE AMINOTRANSFERASE 16 U/L (21-72); ALBUMIN 4.3 g/dL (3.5-5.0); ALKALINE PHOSPHATASE 110 U/L (38-126); ANION GAP 12 (5-19); ASPARTATE AMINO TRANSFERASE 32 U/L (17-59); BILIRUBIN,DIRECT 0.4 mg/dL (0.0-0.4); BILIRUBIN,TOTAL 0.5 mg/dL (0.2-1.3); BLOOD UREA NITROGEN 10 mg/dL (7-20); CALCIUM 9.6 mg/dL (8.4-10.2); CARBON DIOXIDE 25 mmol/L (22-30); CHLORIDE 99 mmol/L (98-107); CREATININE RESULT 0.82 mg/dL (0.52-1.25); GLUCOSE 84 mg/dL (75-110); POTASSIUM 4.7 mmol/L (3.6-5.0); SODIUM 136.2 mmol/L (137-145)
[2017-03-13 11:59] LABS: APPEARANCE,URINE CLEAR; BILIRUBIN,URINE NEGATIVE (NEGATIVE); GLUCOSE, URINE NEGATIVE (NEGATIVE); KETONES,URINE NEGATIVE (NEGATIVE); LEUKOCYTE ESTERASE,URINE NEGATIVE (NEGATIVE); NITRITE,URINE NEGATIVE (NEGATIVE); PROTEIN,URINE NEGATIVE (NEGATIVE); URINE SPECIFIC GRAVITY 1.003; UROBILINOGEN,URINE NEGATIVE mg/dL (<2.0)
--- NOTE | 2017-03-13 12:12 | RADIOLOGY REPORT (SQ) ---
EXAM DESCRIPTION: CTA CHEST COMPLETED DATE/TIME: 03/13/2017 11:57 am REASON FOR STUDY: hemoptysis COMPARISON: Chest x-ray dated 03/13/2017 TECHNIQUE: CT scan of the chest performed using helical scanning technique with dynamic intravenous contrast injection. Images reviewed with lung, soft tissue and bone windows. Reconstructed coronal and sagittal MPR images reviewed. Additional 3 dimensional post-processing performed to develop Maximal Intensity Projection images ([place] P). All images stored on PACS. All CT scanners at this facility use dose modulation, iterative reconstruction, and/or weight based d osing when appropriate to reduce radiation dose to as low as reasonably achievable (ALARA). [facility]: Dose Right [facility]: CareDose [facility]: Dose Right [facility]: Teradose 4D [facility]: DiaDerma BV CONTRAST TYPE AND DOSE: contrast/concentration: Isovue 370.00 mg/ml; Total Contrast Delivered: 75.0 ml; Total Saline Delivered: 110.0 ml RENAL FUNCTION: Creatinine 0.82 RADIATION DOSE: Up-to-date CT equipment and radiation dose reduction techniques were employed. CTDIv ol: 16.5 - 17.8 mGy. DLP: 635 mGy-cm. . LIMITATIONS: None. FINDINGS: LUNGS AND PLEURA: Tiny left pleural effusion is identified with associated patchy airspace density in the left lower lobe which could represent pneumonic infiltrate or pulmonary hemorrhage. AORTA AND GREAT VESSELS: No aneurysm or dissection. HEART: No pericardial effusion. PULMONARY ARTERIES: No emboli visualized in the main pulmonary arteries or the segmental branches. HILAR AND MEDIASTINAL STRUCTURES: No identified masses or abnormal nodes. HARDWARE: None in the chest. UPPER ABDOMEN: No significant findings. Limited exam. THYROID AND OTHER SOFT TISSUES: No masses. No adenopathy. BONES: No acute or significant finding. 3D MIPS: Confirm above findings. OTHER: No other significant finding. IMPRESSION: No evidence for pulmonary embolic disease. Tiny left pleural effusion is identified. T here is patchy airspace density in the left lower lobe which could represent a pneumonic infiltrate o r pulmonary hemorrhage. Other findings as noted above. TECHNICAL DOCUMENTATION: JOB ID: [id number] Quality ID # [id number]: Final reports with documentation of one or more dose reduction techniques (e.g., Au tomated exposure control, adjustment of the mA and/or kV according to patient size, use of iterative reconstruction technique) 2010 [employer]- All Rights Reserved
[2017-03-13] MEDS ORDERED: LEVOFLOXACIN 750 MG TABLET PO ONE (12:28)
[2017-03-13 12:39] VITALS: BP 124/98
--- NOTE | 2017-03-13 18:01 | EKG REPORT ---
SEVERITY:- ABNORMAL ECG - ATRIAL FIBRILLATION, V-RATE 70-109 : Confirmed by: Arjun Mchugh MD 13-Mar-2017 18:00:08
== END 2017-03-13 12:40 | disposition home or self-care (01) ==
LOC: ER 10:06
DX: J44.9 Chronic obstructive pulmonary disease, unspecified (principal); R04.2 Hemoptysis; J32.9 Chronic sinusitis, unspecified; R09.81 Nasal congestion; I48.91 Unspecified atrial fibrillation; J34.89 Other specified disorders of nose and nasal sinuses; F17.210 Nicotine dependence, cigarettes, uncomplicated; Z79.51 Long term (current) use of inhaled steroids; Z79.02 Long term (current) use of antithrombotics/antiplatelets; Z88.8 Allergy status to other drugs, medicaments and biological substances; Z85.46 Personal history of malignant neoplasm of prostate; Z85.828 Personal history of other malignant neoplasm of skin
CPT/HCPCS: 93005; 99284; 36415; 87040; 87086; 85025; 85610; 80053; 81001; 71020; 71275; 93010; A9270

== ENCOUNTER 2017-05-20 17:05 | Emergency (ER) | payer MEDICARE, OTHER ==
--- NOTE | 2017-05-20 17:09 | ER Document Report ---
ED Psych Disorder / Suicide - General Mode of Arrival: Medic Information source: Patient TRAVEL OUTSIDE OF THE [place] IN LAST 30 DAYS: No <VLADIMIR RESENDEZ - Last Filed: 05/20/17 22:30> <FAZAL JULIO - Last Filed: 05/20/17 23:08> - General Stated Complaint: POSSIBLE WITHDRAW Time Seen by Provider: 05/20/17 17:09 Notes: Patient is a 72-year-old male who presents to the emergency department today with complaints of possible EtOH withdrawal. Patient states he has been through withdrawals before but has never had a seizure. Patient states he feels like he "may seize now". Patient states he drinks approximately 12 beers a day normally. Patient states he last drank last night. Patient states they have a 3 or 4 day rehab at [facility] but he does not want to go there because he is "very embarrassed" as he has been there several times in the past. Patient states he normally is given Librium for withdrawals. (VLADIMIR RESENDEZ) - Related Data Allergies/Adverse Reactions: diphenhydramine HCl [From Benadryl] Allergy (Verified 09/16/16 17:37) Hyperactivity lisinopril [Lisinopril] Adverse Reaction (Severe, Verified 09/16/16 17:37) angioedema Past Medical History - General Information source: Patient - Social History Smoking Status: Former Smoker Cigarette use (# per day): No Frequency of alcohol use: Heavy Drug Abuse: None Lives with: Family Family History: Reviewed & Not Pertinent, CAD, COPD - Past Medical History Cardiac Medical History: Reports: Hx Atrial Fibrillation Pulmonary Medical History: Reports: Hx COPD Malignancy Medical History: Reports Hx Prostate Cancer, Reports Hx Skin Cancer - History of GI Medical History: Reports: Hx Hiatal Hernia Psychiatric Medical History: Reports: Hx Anxiety, Hx Depression Traumatic Medical History: Reports: Hx Fractures - Hip - per patient Infectious Medical History: Reports: Hx C-Diff Past Surgical History: Reports: Hx Abdominal Surgery, Hx Herniorrhaphy, Hx Orthopedic Surgery - elbow, Hx Urinary Tract Surgery - Immunizations Hx Diphtheria, Pertussis, Tetanus Vaccination: No Hx Pneumococcal Vaccination: 09/05/10 <VLADIMIR RESENDEZ - Last Filed: 05/20/17 22:30> Review of Systems - Review of Systems Constitutional: No symptoms reported EENT: No symptoms reported Cardiovascular: No symptoms reported Respiratory: No symptoms reported Gastrointestinal: No symptoms reported Genitourinary: No symptoms reported Male Genitourinary: No symptoms reported Musculoskeletal: No symptoms reported Skin: No symptoms reported Hematologic/Lymphatic: No symptoms reported Neurological/Psychological: See HPI, Other - complains of possible EtOH withdrawal -: Yes All other systems reviewed and negative <VLADIMIR RESENDEZ - Last Filed: 05/20/17 22:30> Physical Exam <VLADIMIR RESENDEZ - Last Filed: 05/20/17 22:30> <FAZAL JULIO - Last Filed: 05/20/17 23:08> - Vital signs Vitals: Temp Pulse Resp BP Pulse Ox 97.8 F 85 16 135/82 H 98 05/20/17 17:08 05/20/17 17:08 05/20/17 17:08 05/20/17 17:08 05/20/17 17:08 - Notes Notes: Physical Exam: General: Alert, appears well. HEENT: Normocephalic. Atraumatic. PERRL. Extraocular movements intact. Oropharynx clear. Neck: Supple. Non-tender. Respiratory: No respiratory distress. Clear and equal breath sounds bilaterally. Cardiovascular: Regular rate and rhythm. Abdominal: Normal Inspection. Non-tender. No distension. Normal Bowel Sounds. Back: Non-tender. No deformity or step off. Extremities: Moves all four extremities. Upper extremities: Normal inspection. Normal ROM. Lower extremities: Normal inspection. No edema. Normal ROM. Neurological: Normal cognition. AAOx4. Normal speech. Tremulous. Psychological: Normal affect. Normal Mood. Skin: Warm. Dry. Normal color. (VLADIMIR RESENDEZ) Course - Laboratory Result Diagrams: 05/20/17 17:54 05/20/17 17:54 <VLADIMIR RESENDEZ - Last Filed: 05/20/17 22:30> - Laboratory Result Diagrams: 05/20/17 17:54 05/20/17 17:54 <FAZAL JULIO - Last Filed: 05/20/17 23:08> - Re-evaluation Re-evalutation: 05/20/17 19:46 Patient is a 72-year-old male with a history of alcohol abuse who presents with tremulousness. Heart rate and blood pressure stable. Patient has resolved tremulousness after a dose of Valium. I do not think that the patient needs to be admitted at this time. Patient will be discharged home with Librium. He is to follow-up for evaluation by rehab services. Understands and agrees with plan. Stable for discharge at this time. (FAZAL JULIO) - Vital Signs Vital signs: Temp Pulse Resp BP Pulse Ox 98.6 F 92 16 115/78 97 05/20/17 20:46 05/20/17 20:46 05/20/17 20:46 05/20/17 20:46 05/20/17 20:46 - Laboratory Laboratory results interpreted by me: 05/20/17 05/20/17 05/20/17 17:54 17:54 17:54 RBC 4.16 L RDW 14.6 H Seg Neutrophils % 79.5 H Lymphocytes % 10.5 L Sodium 133.0 L Chloride 97 L Glucose 114 H Total Protein 6.0 L Ur Leukocyte Esterase TRACE H Salicylates < 1.0 L Acetaminophen < 10 L Discharge <VLADIMIR RESENDEZ - Last Filed: 05/20/17 22:30> <FAZAL JULIO - Last Filed: 05/20/17 23:08> - Discharge Clinical Impression: Alcohol dependency Qualifiers: Substance use status: unspecified alcohol-induced disorder Qualified Code(s): F10.29 - Alcohol dependence with unspecified alcohol-induced disorder Condition: Stable Disposition: HOME, SELF-CARE Instructions: Alcohol Withdrawl (OM), Chronic Alcoholism (OM) Prescriptions: Chlordiazepoxide HCl [Librium 5 mg Capsule] 1 cap PO ASDIR #14 cap [facility] - Follow up as needed [facility] [Provider Group] - Follow up as needed Scribe Attestation: 05/20/17 23:08 I personally performed the services described in the documentation, reviewed and edited the documentation which was dictated to the scribe in my presence, and it accurately records my words and actions. (FAZAL JULIO) Scribe Documentation - Scribe Written by Reynaldoibe:: Cristiano Mauricio, 05/20/2017 193 acting as scribe for :: Javid <VLADIMIR RESENDEZ - Last Filed: 05/20/17 22:30>
[2017-05-20 18:15] LABS: ABSOLUTE LYMPHOCYTES (AUTO) 0.6 10^3/uL (0.5-4.7); ABSOLUTE MONOCYTES (AUTO) 0.5 10^3/uL (0.1-1.4); ABSOLUTE NEUT (AUTO) 4.8 10^3/uL (1.7-8.2); APPEARANCE,URINE CLEAR; BASOPHILS % (AUTO) 0.4 % (0-2); BILIRUBIN,URINE NEGATIVE (NEGATIVE); EOSINOPHILS % (AUTO) 0.6 % (0-6); GLUCOSE, URINE NEGATIVE (NEGATIVE); HEMATOCRIT 39.7 % (37.9-51.0); HEMOGLOBIN 13.8 g/dL (13.5-17.0); HGB HCT DIFFERENCE 1.7; KETONES,URINE NEGATIVE (NEGATIVE); LEUKOCYTE ESTERASE,URINE TRACE (NEGATIVE); LYMPHOCYTES % (AUTO) 10.5 % (13-45); MEAN CORPUSCULAR HEMOGLOBIN 33.1 pg (27.0-33.4); MEAN CORPUSCULAR HGB CONC 34.7 g/dL (32.0-36.0); MEAN CORPUSCULAR VOLUME 96 fl (80-97); NITRITE,URINE NEGATIVE (NEGATIVE); PROTEIN,URINE NEGATIVE (NEGATIVE); RED BLOOD COUNT 4.16 10^6/uL (4.35-5.55); RED CELL DISTRIBUTION WIDTH 14.6 % (11.5-14.0); SEGMENTED NEUTROPHILS % (AUTO) 79.5 % (42-78); URINE SPECIFIC GRAVITY 1.001; UROBILINOGEN,URINE NEGATIVE mg/dL (<2.0)
[2017-05-20] MEDS ORDERED: DIAZEPAM 2 MG TABLET PO ONE ×2 (18:23→19:59)
[2017-05-20 18:30] LABS: URINE BARBITURATES SCREEN NEGATIVE; URINE METHADONE SCREEN NEGATIVE; URINE OPIATES LOW NEGATIVE; URINE PHENCYCLIDINE SCREEN NEGATIVE
[2017-05-20 18:32] LABS: ALANINE AMINOTRANSFERASE 46 U/L (21-72); ALBUMIN 3.7 g/dL (3.5-5.0); ALKALINE PHOSPHATASE 113 U/L (38-126); ANION GAP 9 (5-19); ASPARTATE AMINO TRANSFERASE 57 U/L (17-59); BILIRUBIN,DIRECT 0.3 mg/dL (0.0-0.4); BILIRUBIN,TOTAL 0.8 mg/dL (0.2-1.3); BLOOD UREA NITROGEN 7 mg/dL (7-20); CALCIUM 9.2 mg/dL (8.4-10.2); CARBON DIOXIDE 27 mmol/L (22-30); CHLORIDE 97 mmol/L (98-107); CREATININE RESULT 0.64 mg/dL (0.52-1.25); GLUCOSE 114 mg/dL (75-110); POTASSIUM 3.8 mmol/L (3.6-5.0)
[2017-05-20 18:34] LABS: ALCOHOL < 10 mg/dL (NONE DETECTED)
[2017-05-20 20:51] VITALS: BP 115/78
--- NOTE | 2017-05-21 11:50 | EKG REPORT ---
SEVERITY:- ABNORMAL ECG - ATRIAL FIBRILLATION, V-RATE 78-138 BORDERLINE T ABNORMALITIES, INFERIOR LEADS : Confirmed by: Manuela Pollock 21-May-2017 11:49:38
== END 2017-05-20 20:52 | disposition home or self-care (01) ==
LOC: ER 17:05
DX: F10.29 Alcohol dependence with unspecified alcohol-induced disorder (principal); Z87.891 Personal history of nicotine dependence
CPT/HCPCS: 93005; 99285; 36415; 80307 ×4; 85025; 80053; 81001; 93010; A9270; J3490